=== PATIENT | male | born 1960 | race Caucasian/White ===

== ENCOUNTER → 2020-07-11 09:45 | Outpatient (BNVA) | payer MEDICAID, SELFPAY | PROVIDERS: PCP Internal Medicine; Referring Provider Internal Medicine; Visit Provider Nurse Practitioner | DX: K52.9 Noninfective gastroenteritis and colitis, unspecified (principal); K62.89 Other specified diseases of anus and rectum; Z80.0 Family history of malignant neoplasm of digestive organs | CPT/HCPCS: 99214 ==

== ENCOUNTER → 2020-07-25 11:09 | Outpatient (BNVA) | payer MEDICAID, SELFPAY | PROVIDERS: PCP Internal Medicine; Visit Provider Nurse Practitioner | DX: K52.9 Noninfective gastroenteritis and colitis, unspecified (principal); K21.9 Gastro-esophageal reflux disease without esophagitis; K62.89 Other specified diseases of anus and rectum; I69.392 Facial weakness following cerebral infarction; Z80.0 Family history of malignant neoplasm of digestive organs | CPT/HCPCS: 99214 ==

== ENCOUNTER 2020-08-09 09:19 | Outpatient (REF) | payer MEDICAID, SELFPAY ==
[2020-08-09 10:13] LABS: MANUAL DIFF FLAG NO
[2020-08-09 10:25] LABS: Basophils Absolute Auto 0.1 X10*3/uL (0.0-0.2); Basophils Percent Auto 0.7 % (0-2); Eosinophils Absolute Auto 0.3 X10*3/uL (0.0-0.4); Eosinophils Percent Auto 3.9 % (0-4); Hematocrit 44.8 % (42-52); Hemoglobin 15.7 g/dl (14.0-18.0); Imm Gran Abs Auto 0.01 X10*3/uL (0.00-0.03); Imm Gran Pct Auto 0.1 % (0.0-0.4); Lymphocytes Absolute Auto 3.1 X10*3/uL (1.2-4.9); Mean Corpuscular Hemoglobin 30.3 pg (27.0-33.0); Mean Corpuscular Volume 86.3 fL (80-98); Mean Platelet Volume 11.9 fL (9.4-12.4); Monocytes Absolute Auto 0.7 X10*3/uL (0.1-1.2); Monocytes Percent Auto 9.9 % (2-11); Neutrophils Absolute Auto 3.3 X10*3/uL (2.0-8.3); Neutrophils Percent Auto 44.4 % (45-73); Platelet Count 189 X10*3/uL (160-400); Red Blood Count 5.19 X10*6/uL (4.60-5.80); Red Cell Distribution Width 12.8 % (11.0-16.0); White Blood Count 7.4 X10*3/uL (4.8-10.8)
[2020-08-09 10:57] LABS: Alanine Aminotransferase 30 U/L (0-40); Albumin Level 4.3 g/dL (3.5-5.0); Alkaline Phosphatase 65 U/L (39-117); Anion Gap 10 (12-20); Aspartate Amino Transferase 32 U/L (5-37); Bilirubin Total 0.8 mg/dL (0.0-1.0); Blood Urea Nitrogen 14 mg/dL (9-16); Calcium 8.9 mg/dL (8.4-10.2); Carbon Dioxide 26 mmol/L (22-29); Chloride 105 mmol/L (96-108); Estimated Glomerular Filt Rate > 60; Glucose Random 98 mg/dL (60-115); Potassium 4.4 mmol/l (3.3-5.1); Sodium 137 mmol/L (135-145); Total Protein 7.1 g/dL (6.5-8.0)
== END 2020-08-09 09:20 | disposition home or self-care (01) ==
LOC: HO.LAB 09:19
PROVIDERS: PCP Internal Medicine; Visit Provider Nurse Practitioner
DX: Z12.11 Encounter for screening for malignant neoplasm of colon (principal)
CPT/HCPCS: 36415; 80053; 85025

== ENCOUNTER 2020-08-16 07:22 | Day surgery (SDC) | payer MEDICAID, SELFPAY ==
[2020-08-09 12:14] VITALS: BMI 30.2
[2020-08-16 08:14] VITALS: BP 110/71; PULSE 58; RESP 16; TEMP 36.2; O2SAT 98
[2020-08-16] MEDS: Lactated Ringers 1,000 ML 50 ML IVCONT (08:20)
--- NOTE | 2020-08-16 08:20 | P.CONAN_ITS ---
[facility] Past Medical History Medical History CVA (cerebral vascular accident) Elevated cholesterol GERD (gastroesophageal reflux disease) HTN (hypertension) Sleep apnea Czech speaking patient Family History Family History (Updated 07/25/20 @ 11:21 by ROSETTA Walls) Father Myocardial infarction Colon cancer HTN (hypertension) Mother Coronary artery disease HTN (hypertension) Diabetes mellitus Hyperlipidemia Paternal Uncle Liver cancer Colon cancer Paternal Grandmother Myocardial infarction Heart disease Family/Other Diabetes mellitus HTN (hypertension) Son Asthma Bipolar 1 disorder ADHD Surgical History Surgical History Hx of colonoscopy No pertinent past surgical history Social History Social History (Updated 07/25/20 @ 11:22 by ROSETTA Walls) Alcohol intake: current Alcohol intake frequency: does not drink Smoking Status: Never smoker Use of substances other than those prescribed or required for medical reasons: No Advance Directives Information Provided: No Recently lost weight without trying: No Meds Allergies Allergy/AdvReac Type Severity Reaction Status Date / Time No Known Allergies Allergy Verified 08/09/20 12:24 Home Medications Medication Instructions Recorded Confirmed Type amlodipine 5 mg tablet 5 mg PO DAILY 07/11/20 08/16/20 History aspirin 81 mg tablet,delayed 81 mg PO DAILY 07/11/20 08/16/20 History release gabapentin 100 mg capsule 100 mg PO DAILY 07/11/20 08/09/20 History lisinopril 2.5 mg tablet 2.5 mg PO DAILY 07/11/20 08/09/20 History omeprazole 20 mg capsule,delayed 20 mg PO DAILY 07/11/20 08/09/20 History release simvastatin 40 mg tablet 40 mg PO DAILY 07/11/20 08/09/20 History Exam Exam Date and Time: August 16, 2020819 Height,Weight and Vital Signs: Height 5 ft 7.5 in Weight 88.904 kg Last Vital Signs Temp 97.2 F 08/16/20 08:14 Pulse 58 08/16/20 08:14 Resp 16 08/16/20 08:14 BP 110/71 08/16/20 08:14 Pulse Ox 98 08/16/20 08:14 Airway Mallampati Class: II TM Dist: >3cm Neck ROM: Full Partial: Upper and Lower Heart: RRR Lungs: CTA BL Assessment and Plan Assessment Anesthesia Assessment: Anesthesia Plan Discussed and Chart Reviewed Final Anesthetic Review NPO: Yes (Sip water with meds) ASA Class: III Final Preanesthetic Review: Meds/Allgs Chart Reviewed and Consent Obtained/Reviewed Patient Risk: Intermediate Procedure Risk: Intermediate Anesthetic Plan Anesthetic Plan: MAC: Disposition: Standard PACU
--- NOTE | 2020-08-16 08:20 | MHC.SHP ---
Pre-Procedural Eval Section B Chief Complaint: SCREENING Present Medications: see Short Stay Collaborative assessment Medical History: Significant History (cva, HTN, HLP) History of Previous Operations: No relevant previous surgery Allergies: Allergies Allergy/AdvReac Type Severity Reaction Status Date / Time No Known Allergies Allergy Verified 08/09/20 12:24 Review of Systems Sugical H&P ROS: Negative: Constitution, Cardiovascular, Respiratory, Neurological, Psychiatric, Hem-Onc, Allergic/Immunologic, Gastrointestinal, Genitourinary, Musculoskeletal, Integumentary, Endocrine and Eyes/Ears/Nose/Throat Exam Surgical H&P Exam: Normal: HEENT, Normal: Heart, Normal: Lungs, Normal: Extremities, Normal: Abdomen, Normal: Skin and Normal: Neurological Plan Diagnosis/Plan: Unchanged Patient has been examined and remains a candidate for the planned procedure
--- NOTE | 2020-08-16 08:21 | PM.OP ---
Brief Operative Note Date of Service: 08/16/20 Pre-op diagnosis: colon screen Post-op diagnosis: same Procedure: see op note Surgeon: Chiquita Kapadia MD Anesthesia: MAC Estimated blood loss (mL): 0 Condition: stable Disposition: PACU
--- NOTE | 2020-08-16 08:21 | W.PM.OPN ---
Operative Note Operative Note Date of Service: 08/16/20 Narrative: Operative Information Procedure Description: Colonoscopy COLONOSCOPY Instrument: Olympus variable stiffness pediatric scope 190L Colonoscopy Monitoring: Vital signs and clinical assessment, continuous EKG monitoring, Pulse oximetry, Carbon Dioxide monitoring and blood pressure monitoring were done throughout the procedure. Colon withdrawal time was 10 minutes. Procedure: The patient was placed in the left lateral decubitis position and pre-procedure medications were administered. After a digital rectal examination of the ano-rectum, the video colonoscope was inserted into the rectum and advanced through the colon to the cecum/TI. The colonoscope was slowly withdrawn in a retrograde panoramic fashion and the colon mucosa was carefully examined including a retroflexed view of the rectum. Findings and interventions are described below. Procedure Difficulty:easy Findings: Terminal Ileum-normal Cecum:normal Ascending Colon: 4-5 mm sessile polyp removed with forceps Transverse Colon -normal Descending Colon:normal Sigmoid Colon: several wide mouthed tics seen, at rectosigmoid junction 10-12 mm semi pedunculated polyp removed with cold snare Rectum: Retroflexion with small to moderate sized internal hemorrhoids, grade I Anorectum - normal Colon preparation: [place] Bowel Preparation Scale Right colon; 3 Transverse colon: 3 Left colon; 3 (0 = Unprepared colon segment with mucosa not seen due to solid stool that cannot be cleared. 1 = Portion of mucosa of the colon segment seen, but other areas of the colon segment not well seen due to staining, residual stool and/or opaque liquid. 2 = Minor amount of residual staining, small fragments of stool and/or opaque liquid, but mucosa of colon segment seen well. 3 = Entire mucosa of colon segment seen well with no residual staining, small fragments of stool or opaque liquid) Impression and Post Procedure Diagnosis: internal hemorrhoids diverticulosis polyps Plan: High fiber diet leaflet Avoid straining at stool, epsom salts and sitz bath, anusol supps or cream Repeat Colonoscopy in 3-5 years pending pathology or earlier if clinically indicated Above findings were reviewed with the patient and relevant handouts were provided if indicated.
[2020-08-16 08:43] VITALS: BP 92/57; PULSE 63; RESP 16; TEMP 36.5; O2SAT 97
[2020-08-16 08:58] VITALS: BP 99/70; PULSE 62; RESP 18; O2SAT 99
--- NOTE | 2020-08-16 09:19 | HO.POSTANES ---
Post Anesthesia Evaluation Post Anesthesia Evaluation Vital Signs: Vital Signs Temp Pulse Resp BP Pulse Ox 08/16/20 08:58 97.7 F 62 18 99/70 99 08/16/20 08:43 97.7 F 63 16 92/57 L 97 08/16/20 08:14 97.2 F 58 16 110/71 98 Anesthesia: Monitored Mental Status: Awake Pain Control: Satisfactory Nausea/Vomiting: None Hydration: Adequate Anesthesia-Related Issues: No Anes. Related Issues
== END 2020-08-16 09:35 | disposition home or self-care (01) ==
PROVIDERS: PCP Internal Medicine; Visit Provider Internal Medicine Gastroenterology
PROC: 0DJD8ZZ Inspection of Lower Intestinal Tract, Via Natural or Artificial Opening Endoscopic (ICD-10-PCS; CPT 45378; principal; 2020-08-16 08:30)
DX: Z12.11 Encounter for screening for malignant neoplasm of colon (principal); D12.7 Benign neoplasm of rectosigmoid junction; K63.5 Polyp of colon; K57.30 Diverticulosis of large intestine without perforation or abscess without bleeding; K64.0 First degree hemorrhoids; K21.9 Gastro-esophageal reflux disease without esophagitis; I10 Essential (primary) hypertension; G47.33 Obstructive sleep apnea (adult) (pediatric); I69.351 Hemiplegia and hemiparesis following cerebral infarction affecting right dominant side; Z99.89 Dependence on other enabling machines and devices; Z79.82 Long term (current) use of aspirin; Z79.899 Other long term (current) drug therapy
CPT/HCPCS: 45385; 45380; 88305

== ENCOUNTER → 2020-09-07 15:50 | Outpatient (BNVA) | payer MEDICAID, SELFPAY | PROVIDERS: PCP Internal Medicine; Referring Provider Internal Medicine; Visit Provider Nurse Practitioner | DX: Z76.89 Persons encountering health services in other specified circumstances (principal) ==

== ENCOUNTER 2020-12-19 12:58 | Outpatient (REF) | payer MEDICAID, SELFPAY ==
--- NOTE | ~2020-12-19 | XR_ITS ---
EXAMINATION: XR CHEST CLINICAL INFORMATION: Cough and chest pain COMPARISON: Previous chest x-ray May 2020 TECHNIQUE: 2 views of the chest were obtained. FINDINGS: No significant abnormality is noted involving the heart, lungs, mediastinum, bony thorax or soft tissues. XR/XR chest 2V IMPRESSION: Unremarkable examination.
== END 2020-12-19 12:59 | disposition home or self-care (01) ==
LOC: HO.XRAY 12:58
PROVIDERS: PCP Internal Medicine; Visit Provider Internal Medicine
DX: R07.89 Other chest pain (principal); R05 Cough
CPT/HCPCS: 71046

== ENCOUNTER 2023-09-10 11:07 | Outpatient (REF) | payer MEDICARE, MEDICAID, SELFPAY ==
[2023-09-10 14:25] LABS: Hematocrit 46.8 % (42.0-52.0); Hemoglobin 16.2 g/dl (14.0-18.0); Mean Corpuscular HGB Conc 34.6 g/dl (31.0-36.0); Mean Corpuscular Hemoglobin 29.1 pg (27.0-33.0); Mean Corpuscular Volume 84.2 fL (80.0-98.0); PLT CLUMP 1; Red Blood Count 5.56 X10*6/uL (4.60-5.80); Red Cell Distribution Width 13.5 % (11.0-16.0)
[2023-09-10 14:43] LABS: Platelet Count 155 X10*3/uL (160-400); White Blood Count 8.6 X10*3/uL (4.8-10.8)
[2023-09-10 14:57] LABS: TSH reflex Free T4 0.99 uIU/mL (0.32-4.0); Vitamin D 25-OH Total 52.9 ng/mL (>30)
== END 2023-09-10 11:08 | disposition home or self-care (01) ==
LOC: HO.CHCLDS 11:07
PROVIDERS: Visit Provider Internal Medicine
DX: R53.83 Other fatigue (principal)
CPT/HCPCS: 36415; 82306; 84443; 85027

== ENCOUNTER 2023-09-10 11:31 | Outpatient (REF) | payer MEDICARE, MEDICAID, SELFPAY ==
--- NOTE | ~2023-09-10 | XR_ITS ---
EXAMINATION: XR CHEST CLINICAL INFORMATION: Shortness of breath COMPARISON: Chest 09/21/2021, 06/08/2020 TECHNIQUE: 2 views of the chest were obtained. 11:55 AM FINDINGS: No significant abnormality is noted involving the heart, lungs, mediastinum, bony thorax or soft tissues. XR/XR chest 2V IMPRESSION: No acute cardiopulmonary disease.
== END 2023-09-10 11:32 | disposition home or self-care (01) ==
LOC: HO.XRAY 11:31
PROVIDERS: Visit Provider Internal Medicine
DX: R06.02 Shortness of breath (principal)
CPT/HCPCS: 71046

== ENCOUNTER 2024-01-07 07:31 | Day surgery (SDC) | payer MEDICARE, MEDICAID, SELFPAY ==
--- NOTE | 2024-01-06 09:35 | HO.ANESPROP2 ---
Documented by User: Janeth Coleman NP 01/06/24 09:35 HPI - Anesthesia Eval Consult details Narrative: 63yo M for Colonoscopy PMFSH Active Problems Active Problems: All Active Problems Tubular adenoma of colon (Acute) 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) (Acute) Hypertension (Acute) High cholesterol (Acute) GERD (gastroesophageal reflux disease) (Acute) RAMÍREZ (obstructive sleep apnea) (Acute) Rectal pain (Acute) Family history of colon cancer (Acute) Colitis (Acute) Past Medical History Medical History (Updated 01/07/24 @ 07:51 by Salina Yu RN) Elevated cholesterol GERD (gastroesophageal reflux disease) HTN (hypertension) [place] speaking patient Sleep apnea CVA (cerebral vascular accident) Family History Family History (Updated 07/25/20 @ 11:21 by ROSETTA Walls) Father Myocardial infarction Colon cancer HTN (hypertension) Mother Coronary artery disease HTN (hypertension) Diabetes mellitus Hyperlipidemia Paternal Uncle Liver cancer Colon cancer Paternal Grandmother Myocardial infarction Heart disease Family/Other Diabetes mellitus HTN (hypertension) Son Asthma Bipolar 1 disorder ADHD Surgical History Surgical History (Updated 01/05/24 @ 11:47 by Bibiana Martinez RN) Hx of colonoscopy Social History Social History (Updated 09/07/20 @ 16:09 by ROSETTA Walls) Alcohol intake: current Alcohol intake frequency: does not drink Patient Tobacco Use Status: Never used Tobacco Use of substances other than those prescribed or required for medical reasons: No Are you DNR?: No Advance Directives: No Advance Directives Information Provided: Yes Meds Allergies Allergy/AdvReac Type Severity Reaction Status Date / Time No Known Allergies Allergy Verified 08/09/20 12:24 Home Medications ?Medication ?Instructions ?Recorded ?Confirmed ?Last Taken ?Type amlodipine 5 mg tablet 5 mg PO DAILY 07/11/20 08/16/20 08/16/20 06:00 History aspirin 81 mg tablet,delayed 81 mg PO DAILY 07/11/20 08/16/20 08/15/20 History release gabapentin 100 mg capsule 100 mg PO DAILY 07/11/20 08/09/20 Unknown History lisinopril 2.5 mg tablet 2.5 mg PO DAILY 07/11/20 08/09/20 Unknown History omeprazole 20 mg capsule,delayed 20 mg PO DAILY 07/11/20 08/09/20 Unknown History release simvastatin 40 mg tablet 40 mg PO DAILY 07/11/20 08/09/20 Unknown History Exam Height,Weight and Vital Signs: Height 5 ft 7.5 in Assessment and Plan Assessment Anesthesia Assessment: Chart Reviewed Documented by User: Roshan Cali MD 01/07/24 09:04 [facility] Past Medical History Medical History (Updated 01/07/24 @ 07:51 by Salina Yu RN) Elevated cholesterol GERD (gastroesophageal reflux disease) HTN (hypertension) [place] speaking patient Sleep apnea CVA (cerebral vascular accident) Family History Family History (Updated 07/25/20 @ 11:21 by ROSETTA Walls) Father Myocardial infarction Colon cancer HTN (hypertension) Mother Coronary artery disease HTN (hypertension) Diabetes mellitus Hyperlipidemia Paternal Uncle Liver cancer Colon cancer Paternal Grandmother Myocardial infarction Heart disease Family/Other Diabetes mellitus HTN (hypertension) Son Asthma Bipolar 1 disorder ADHD Family history of problems with anesthesia: No Surgical History Surgical History (Updated 01/05/24 @ 11:47 by Bibiana Martinez RN) Hx of colonoscopy History of Problems with Anesthesia: No Social History Social History (Updated 09/07/20 @ 16:09 by ROSETTA Walls) Alcohol intake: current Alcohol intake frequency: does not drink Patient Tobacco Use Status: Never used Tobacco Use of substances other than those prescribed or required for medical reasons: No Are you DNR?: No Advance Directives: No Advance Directives Information Provided: Yes Meds Allergies Allergy/AdvReac Type Severity Reaction Status Date / Time No Known Allergies Allergy Verified 08/09/20 12:24 Home Medications ?Medication ?Instructions ?Recorded ?Confirmed ?Last Taken ?Type amlodipine 5 mg tablet 5 mg PO DAILY 07/11/20 08/16/20 08/16/20 06:00 History aspirin 81 mg tablet,delayed 81 mg PO DAILY 07/11/20 08/16/20 08/15/20 History release gabapentin 100 mg capsule 100 mg PO DAILY 07/11/20 08/09/20 Unknown History lisinopril 2.5 mg tablet 2.5 mg PO DAILY 07/11/20 08/09/20 Unknown History omeprazole 20 mg capsule,delayed 20 mg PO DAILY 07/11/20 08/09/20 Unknown History release simvastatin 40 mg tablet 40 mg PO DAILY 07/11/20 08/09/20 Unknown History Exam Airway Mallampati Class: II TM Dist: <=3cm Neck ROM: Full Loose/Missing/Broken Teeth: No Heart: rrr Lungs: cta Assessment and Plan Assessment Anesthesia Assessment: Anesthesia Plan Discussed Final Anesthetic Review Family History of Problems with Anesthesia: No History of Problems with Anesthesia: No NPO: Yes ASA Class: III Final Preanesthetic Review: No Changes in Pt Med Stat, Meds/Allgs Chart Reviewed, Consent Obtained/Reviewed and Anes Risks/Benef Reviewed Patient Risk: Intermediate Procedure Risk: Intermediate Anesthetic Plan Anesthetic Plan: MAC: Disposition: Standard PACU
[2024-01-07 07:45] VITALS: BMI 33.5
[2024-01-07 07:53] VITALS: BP 117/80; PULSE 67; RESP 16; TEMP 36.5; O2SAT 97
[2024-01-07] MEDS: Lactated Ringers 1,000 ML 100 ML IVCONT (08:03)
--- NOTE | 2024-01-07 08:38 | MHC.SHP ---
Pre-Procedural Eval Section A - 24 Hr Update-Section A only Date of Service: 01/07/24 Section B - Complete if H&P > 30 days Chief Complaint: Personal history of polyps, family history of colo Details of Present Illness: PMH: CVA (cerebral vascular accident) Elevated cholesterol GERD (gastroesophageal reflux disease) HTN (hypertension) Sleep apnea Slovenian speaking patient Surgical History Hx of colonoscopy No pertinent past surgical history Present Medications: see Short Stay Collaborative assessment Allergies: Allergies Allergy/AdvReac Type Severity Reaction Status Date / Time No Known Allergies Allergy Verified 08/09/20 12:24 Review of Systems Review of Systems Comment: 10 point ROS negative Exam Exam Comment: Gen appear: No acute distress HEENT: no icterus Chest: No overt resp distress Abd: soft, nontender, nondistended Psych: Stable affect, answering questions appropriately Neuro: A/Ox3 noted to move all extremities spontaneously Ext: no peripheral edema Plan Diagnosis/Plan: Unchanged I have reviewed the history and physical and performed a pertinent physical examination on my patient. No changes have occurred unless specified. Time Spent With Patient Time: Total time managing care of this patient today ____ minutes.
[2024-01-07 10:02] VITALS: BP 118/74; PULSE 68; RESP 16; TEMP 36.1; O2SAT 97
[2024-01-07 10:17] VITALS: BP 102/70; PULSE 60; RESP 16; O2SAT 97
--- NOTE | 2024-01-07 10:20 | P.OP_ITS ---
Operative Note Operative Note Date of Service: 01/07/24 Narrative: Procedure: Colonoscopy Indication: Personal history of polyps and Family history of colon cancer Endoscopist: Ina Brown MD Anesthesia Provider: Chey Serra CRNA Anesthesia type: MAC Instrument: Olympus PCF-H190L Consent: Indication, risks vs benefits, and alternatives were discussed with the patient who gave written informed consent to proceed. An supervisor char house was utilized to assist with the consent. EKG, pulse, pulse oximetry and blood pressure were monitored throughout the procedure. Please see anesthesia flowsheet. Procedure: The patient was brought to the procedure room and placed in the left lateral decubitus position. IV medications were administered by the anesthesia provider in attendance. A digital rectal exam was performed which was normal. A distal attachment cap was affixed to the tip of the colonoscope was then inserted through the anus and advanced through the colon to the cecum at 70 cm,and terminal ileum. Ileocecal valve and appendiceal orifice were identified. Mucosa was carefully examined under high definition white light as the instrument was slowly withdrawn in a retrograde panoramic fashion. Retroflexion was performed in rectum. The procedure was not difficult. There were no immediate obvious complications. The quality of the prep was BBPS: 3+2+2 = adequate Withdrawal time 16 minutes. Limitations: No limitations. Findings: Mucosa: Normal to cecum and terminal ileum. Protruding lesions: * 2 sessile polyps of size 3-4 mm in ascending colon. Cold snare polypectomy was performed. The polyps were completely removed and retrieved. * 1 sessile polyp of size 2 mm in transverse colon. Cold snare polypectomy was performed. The polyp was completely removed and retrieved. * 2 sessile polyps of size 4-6 mm in descending colon. Cold snare polypectomy was performed. The polyps were completely removed and retrieved. * 2 sessile polyps of size 3-4 mm in rectum. Cold snare polypectomy was performed. The polyps were completely removed and retrieved. * Medium internal hemorrhoids without stigmata of recent bleeding. Impression: 1. Normal colon and terminal ileum mucosa 2. Total of 7 polyps removed 3. Internal hemorrhoids Recommendations: - Follow path results. - Repeat colonoscopy in 3 years if 3 or more polyps are adenomas
[2024-01-07 10:32] VITALS: BP 116/53; PULSE 82; RESP 16; TEMP 36.3; O2SAT 97
== END 2024-01-07 11:06 | disposition home or self-care (01) ==
PROVIDERS: PCP Internal Medicine; Visit Provider Internal Medicine
PROC: 0DJD8ZZ Inspection of Lower Intestinal Tract, Via Natural or Artificial Opening Endoscopic (ICD-10-PCS; CPT 45378; principal; 2024-01-07 09:40)
DX: Z12.11 Encounter for screening for malignant neoplasm of colon (principal); Z86.010 Personal history of colon polyps; Z80.0 Family history of malignant neoplasm of digestive organs; D12.2 Benign neoplasm of ascending colon; D12.4 Benign neoplasm of descending colon; D12.8 Benign neoplasm of rectum; K57.30 Diverticulosis of large intestine without perforation or abscess without bleeding; K64.8 Other hemorrhoids; Z86.73 Personal history of transient ischemic attack (TIA), and cerebral infarction without residual deficits; E78.00 Pure hypercholesterolemia, unspecified; K21.9 Gastro-esophageal reflux disease without esophagitis; I10 Essential (primary) hypertension; G47.33 Obstructive sleep apnea (adult) (pediatric); Z79.82 Long term (current) use of aspirin; Z79.899 Other long term (current) drug therapy
CPT/HCPCS: 45385; 88305

== ENCOUNTER → 2024-01-07 07:31 | Outpatient (BNV) | payer MEDICARE, MEDICAID, SELFPAY | PROVIDERS: PCP Internal Medicine; Visit Provider Internal Medicine | DX: Z12.11 Encounter for screening for malignant neoplasm of colon (principal); K63.5 Polyp of colon; K64.8 Other hemorrhoids; Z86.010 Personal history of colon polyps | CPT/HCPCS: 45385 ==

== ENCOUNTER 2024-03-01 09:30 | Outpatient (REF) | payer MEDICARE, MEDICAID, SELFPAY ==
--- NOTE | ~2024-03-01 | XR_ITS ---
EXAMINATION: XR CHEST CLINICAL INFORMATION: Shortness of breath. Cough. COMPARISON: Chest radiograph dated 09/10/2023. TECHNIQUE: 2 views of the chest were obtained. FINDINGS: The lungs are clear. The cardiomediastinal silhouette is normal in size. There is no pleural effusion or pneumothorax. No acute osseous abnormality. XR/XR chest 2V IMPRESSION: No acute cardiopulmonary findings.
== END 2024-03-01 09:31 | disposition home or self-care (01) ==
LOC: HO.HHCX 09:30
PROVIDERS: Visit Provider Internal Medicine
DX: R09.89 Other specified symptoms and signs involving the circulatory and respiratory systems (principal); R06.02 Shortness of breath; R05.1 Acute cough
CPT/HCPCS: 36415; 71046; 80053; 85025

== ENCOUNTER 2024-03-01 09:58 | Outpatient (REF) | payer MEDICARE, MEDICAID, SELFPAY ==
[2024-03-01 11:59] LABS: MANUAL DIFF FLAG NO
[2024-03-01 12:10] LABS: Basophils Percent Auto 0.4 % (0-2); Hemoglobin 17.4 g/dl (14.0-18.0); Imm Gran Abs Auto 0.02 X10*3/uL (0.00-0.03); Imm Gran Pct Auto 0.3 % (0.0-0.4); Lymphocytes Absolute Auto 0.9 X10*3/uL (1.2-4.9); Lymphocytes Percent Auto 12.6 % (20-40); Mean Corpuscular HGB Conc 35.5 g/dl (31.0-36.0); Mean Corpuscular Hemoglobin 29.5 pg (27.0-33.0); Mean Corpuscular Volume 83.1 fL (80.0-98.0); Monocytes Absolute Auto 0.5 X10*3/uL (0.1-1.2); Neutrophils Percent Auto 79.7 % (45-73); Red Cell Distribution Width 14.2 % (11.0-16.0); White Blood Count 7.5 X10*3/uL (4.8-10.8)
[2024-03-01 12:25] LABS: Alanine Aminotransferase 142 U/L (0-40); Alkaline Phosphatase 150 U/L (39-117); Anion Gap 14 (12-20); Aspartate Amino Transferase 112 U/L (5-37); Bilirubin Total 2.4 mg/dL (0.0-1.0); Blood Urea Nitrogen 17 mg/dL (9-16); Calcium 9.2 mg/dL (8.4-10.2); Carbon Dioxide 25 mmol/L (22-29); Chloride 98 mmol/L (96-108); Estimated Glomerular Filt Rate 59; Glucose Random 132 mg/dL (60-115); Potassium 4.3 mmol/L (3.3-5.1); Sodium 133 mmol/L (135-145); Total Protein 7.4 g/dL (6.5-8.0)
[2024-03-01 13:04] LABS: Mean Platelet Volume 12.9 fL (9.4-12.4); Platelet Count 111 X10*3/uL (160-400)
== END 2024-03-01 09:59 | disposition home or self-care (01) ==
LOC: HO.HHCL 09:58
PROVIDERS: Visit Provider Internal Medicine
DX: Z13.89 Encounter for screening for other disorder (principal)
CPT/HCPCS: 36415; 80053; 85025

== ENCOUNTER 2024-03-03 08:41 | Outpatient (REF) | payer MEDICARE, MEDICAID, SELFPAY ==
[2024-03-04 04:18] LABS: HBc Num1 0.12 S/CO (0.00-0.79); HBsAGNum1 0.23 S/CO (0.00-0.99); Hepatitis A Antibody IgM 0.15 Index (0-0.79); Hepatitis B Core Antibody Nonreactive (Nonreactive); Hepatitis B Surface Antigen Negative (Negative); ~HepC Num1 0.22 S/CO (0.00-0.79); ~Hepatitis A Antibody IgM Nonreactive (Nonreactive); ~Hepatitis B Surface Antibody NONREACTIVE (Nonreactive); ~Hepatitis C Antibody Nonreactive (Nonreactive)
== END 2024-03-03 08:42 | disposition home or self-care (01) ==
LOC: HO.CHCLDS 08:41
PROVIDERS: Visit Provider Internal Medicine
DX: R74.01 Elevation of levels of liver transaminase levels (principal); R74.8 Abnormal levels of other serum enzymes
CPT/HCPCS: 36415; 86704; 86706; 86709; 86803; 87340

== ENCOUNTER 2024-03-10 07:45 | Outpatient (REF) | payer MEDICARE, MEDICAID, SELFPAY ==
--- NOTE | ~2024-03-10 | US_ITS ---
EXAMINATION: US ABDOMEN COMPLETE CLINICAL INFORMATION: Elevated alkaline phosphatase. COMPARISON: None available. TECHNIQUE: Real-time imaging of the abdominal viscera. Limited visualization due to bowel gas FINDINGS: PANCREAS: Poorly visualized. ABDOMINAL AORTA: Limited visualization. INFERIOR VENA CAVA: Visualized portions are normal. LIVER: Right lower hepatic 0.5 cm echogenic focus is characteristic of a calcification, possibly a calcified granuloma. Right hepatic lobe borderline enlarged, 15.6 cm. Increased hepatic parenchymal heterogeneity and echogenicity could be associated with hepatocellular disease/hepatic steatosis and substantially limits visualization. Correlation with liver function tests and clinical exam recommended to determine further management. GALLBLADDER: No gallstones. No gallbladder wall thickening. COMMON BILE DUCT: Normal in caliber measuring 0.5 cm in diameter. RIGHT KIDNEY: No hydronephrosis. No renal calculi. Limited visualization. The kidney measures 11.7 cm in maximum dimension. LEFT KIDNEY: No hydronephrosis. No renal calculi. Limited visualization. The kidney measures 12.5 cm in maximum dimension. SPLEEN: Normal. The spleen measures 12.0 cm in maximum dimension. FREE FLUID: None. US/US abdomen complete IMPRESSION: 1. Borderline hepatosplenomegaly as detailed above. Increased hepatic parenchymal heterogeneity and echogenicity could be associated with hepatocellular disease/hepatic steatosis and substantially limits visualization. Correlation with liver function tests and clinical exam recommended to determine further management. 2. Right lower hepatic 0.5 cm echogenic focus is characteristic of a calcification, possibly a calcified granuloma.
== END 2024-03-10 07:46 | disposition home or self-care (01) ==
LOC: HO.US 07:45
PROVIDERS: PCP Internal Medicine; Visit Provider Internal Medicine
DX: R74.01 Elevation of levels of liver transaminase levels (principal); R74.8 Abnormal levels of other serum enzymes
CPT/HCPCS: 76700

== ENCOUNTER 2024-03-12 08:33 | Outpatient (REF) | payer MEDICARE, MEDICAID, SELFPAY ==
[2024-03-12 15:00] LABS: Anion Gap 13 (12-20); Blood Urea Nitrogen 14 mg/dL (9-16); Calcium 9.4 mg/dL (8.4-10.2); Carbon Dioxide 25 mmol/L (22-29); Chloride 104 mmol/L (96-108); Estimated Glomerular Filt Rate > 60; Glucose Random 88 mg/dL (60-115); Potassium 4.7 mmol/L (3.3-5.1); Sodium 137 mmol/L (135-145)
[2024-03-12 15:05] LABS: Estimated Average Glucose 111 mg/dL; Hemoglobin A1C 150.7987 umol/L; Hemoglobin A1c % 5.5 % (<6.0)
[2024-03-15 04:02] LABS: HBS Num1 1.03 mIU/mL (0-7.99); HBc Num1 0.11 S/CO (0.00-0.79); HBsAGNum1 0.36 S/CO (0.00-0.99); Hepatitis A Antibody IgM 0.16 Index (0-0.79); Hepatitis B Core Antibody Nonreactive (Nonreactive); Hepatitis B Surface Antigen Negative (Negative); ~HepC Num1 0.27 S/CO (0.00-0.79); ~Hepatitis A Antibody IgM Nonreactive (Nonreactive); ~Hepatitis B Surface Antibody NONREACTIVE (Nonreactive); ~Hepatitis C Antibody Nonreactive (Nonreactive)
== END 2024-03-12 08:34 | disposition home or self-care (01) ==
LOC: HO.CHCLDS 08:33
PROVIDERS: Visit Provider Internal Medicine
DX: R74.01 Elevation of levels of liver transaminase levels (principal); R73.9 Hyperglycemia, unspecified
CPT/HCPCS: 36415; 80048; 83036; 86704; 86706; 86709; 86803; 87340

== ENCOUNTER 2024-03-18 09:57 | Outpatient (REF) | payer MEDICARE, MEDICAID, SELFPAY ==
[2024-03-18 12:31] LABS: Alanine Aminotransferase 20 U/L (0-40); Albumin Level 3.7 g/dL (3.5-5.0); Alkaline Phosphatase 94 U/L (39-117); Aspartate Amino Transferase 31 U/L (5-37); Bilirubin Direct 0.3 mg/dL (0.0-0.5); Monotest Negative (Negative)
== END 2024-03-18 09:58 | disposition home or self-care (01) ==
LOC: HO.HHCL 09:57
PROVIDERS: Visit Provider Registered Nurse
DX: R74.8 Abnormal levels of other serum enzymes (principal)
CPT/HCPCS: 36415; 80076; 86308

== ENCOUNTER 2024-04-06 15:00 | Outpatient (REF) | payer MEDICARE, MEDICAID, SELFPAY ==
[2024-04-06 18:08] LABS: Alanine Aminotransferase 20 U/L (0-40); Albumin Level 3.6 g/dL (3.5-5.0); Alkaline Phosphatase 91 U/L (39-117); Anion Gap 10 (12-20); Aspartate Amino Transferase 28 U/L (5-37); Bilirubin Total 0.6 mg/dL (0.0-1.0); Blood Urea Nitrogen 19 mg/dL (9-16); Carbon Dioxide 26 mmol/L (22-29); Chloride 105 mmol/L (96-108); Estimated Glomerular Filt Rate > 60; Glucose Random 113 mg/dL (60-115); Sodium 137 mmol/L (135-145); Total Protein 7.7 g/dL (6.5-8.0)
== END 2024-04-06 15:01 | disposition home or self-care (01) ==
LOC: HO.CHCLDS 15:00
PROVIDERS: Visit Provider Internal Medicine
DX: R74.01 Elevation of levels of liver transaminase levels (principal)
CPT/HCPCS: 36415; 80053

== ENCOUNTER 2024-05-03 15:34 | Outpatient (REF) | payer MEDICARE, MEDICAID, SELFPAY ==
[2024-05-03 17:39] LABS: MANUAL DIFF FLAG NO
[2024-05-03 17:55] LABS: Basophils Absolute Auto 0.1 X10*3/uL (0.0-0.2); Basophils Percent Auto 0.6 % (0-2); Eosinophils Absolute Auto 0.3 X10*3/uL (0.0-0.4); Eosinophils Percent Auto 2.8 % (0-4); Hematocrit 43.7 % (42.0-52.0); Hemoglobin 14.6 g/dl (14.0-18.0); Imm Gran Abs Auto 0.05 X10*3/uL (0.00-0.03); Imm Gran Pct Auto 0.5 % (0.0-0.4); Lymphocytes Absolute Auto 2.6 X10*3/uL (1.2-4.9); Lymphocytes Percent Auto 26.2 % (20-40); Mean Corpuscular HGB Conc 33.4 g/dl (31.0-36.0); Mean Corpuscular Hemoglobin 28.6 pg (27.0-33.0); Mean Corpuscular Volume 85.5 fL (80.0-98.0); Mean Platelet Volume 12.6 fL (9.4-12.4); Monocytes Absolute Auto 0.6 X10*3/uL (0.1-1.2); Monocytes Percent Auto 6.1 % (2-11); Neutrophils Absolute Auto 6.2 x10*3/uL (2.0-8.3); Neutrophils Percent Auto 63.8 % (45-73); Platelet Count 113 X10*3/uL (160-400); Red Blood Count 5.11 X10*6/uL (4.60-5.80); Red Cell Distribution Width 14.7 % (11.0-16.0); White Blood Count 9.7 X10*3/uL (4.8-10.8)
[2024-05-03 18:06] LABS: Alanine Aminotransferase 21 U/L (0-40); Albumin Level 3.8 g/dL (3.5-5.0); Alkaline Phosphatase 75 U/L (39-117); Aspartate Amino Transferase 25 U/L (5-37); Bilirubin Direct 0.1 mg/dL (0.0-0.5); Bilirubin Total 0.4 mg/dL (0.0-1.0); Iron 64 mcg/dL (45-160); Magnesium 1.9 mg/dL (1.6-2.6); Percent Iron Saturation 21 % (15-50); Total Iron Binding Capacity 312 mcg/dL (228-428); Total Protein 7.5 g/dL (6.5-8.0); Unsaturated Iron Binding 248 ug/dL
[2024-05-03 18:20] LABS: TSH reflex Free T4 1.88 uIU/mL (0.32-4.0)
[2024-05-03 18:30] LABS: Folate 13.2 ng/mL (> or = 4.0); Vitamin B12 1010 pg/mL (200-900)
== END 2024-05-03 15:35 | disposition home or self-care (01) ==
LOC: HO.CHCLDS 15:34
PROVIDERS: Visit Provider Family Medicine
DX: M79.605 Pain in left leg (principal)
CPT/HCPCS: 36415; 80076; 82607; 82746; 83540; 83735; 84443; 85025

== ENCOUNTER 2025-02-17 09:21 | Outpatient (REF) | payer MEDICARE, MEDICAID, SELFPAY ==
--- NOTE | ~2025-02-17 | XR_ITS ---
EXAMINATION: XR CHEST 2 VIEWS HISTORY: Ongoing cough now for 9-days. Borderline O2 sat. COMPARISON: Comparison is made with the prior examination dated 03/01/2024. FINDINGS: PA and lateral views of the chest are submitted. The lungs are expanded and clear. There is no pleural effusion, pneumothorax, or pulmonary vascular congestion. The heart is normal in size. The bones are intact. XR/XR chest 2V IMPRESSION: No acute cardiopulmonary abnormality. Electronically signed by: Fredis Tellez MD 02/17/2025 09:50 AM EDT
--- OUTSIDE RECORDS SUMMARY | 2025-02-17 09:36 | XMS_ITS | Encounter Summary ---
Author Organization [employer] Address [address] [place] [address] Care Team Providers Care Batch Unit Treater Name Role Phone Viry Merino MD Primary Care Provider [phone] Encounter Details Date Type Department Care Team ([facility] Contact Info) Description 04/02/2023 Orders Only [facility] [address] [place] [address] Gracie Munguia LPN Social History Tobacco Use Types Packs/Day Years Used Date Smoking Tobacco: Never Passive Smoke Exposure: Never Smokeless Tobacco: Never Depression Answer Date Recorded Patient Health Questionnaire-9 Score 1 12/23/2022 Depression Answer Date Recorded Patient Health Questionnaire-2 Score 0 12/23/2022 Sex and Gender Information Value Date Recorded Sex Assigned at Male 07/29/2022 10:18 AM EDT Legal Sex Male 10:18 AM EDT Gender Identity Male 07/29/2022 10:18 AM EDT Sexual Orientation Straight 07/29/2022 10 :18 AM EDT COVID-19 Exposure Response Date Recorded In the last 10 days, have yo u been in contact with someone who was confirmed or suspected to have Coronavirus/COVID-19? No / Unsure 03/20/2023 2:50 PM EDT documented as of this encounter Plan of Treatment Upcoming Encounters Date Type Department Care Team (Late Contact Info) Description 03/01/2025 11:30 AM EDT Office Visit [facility] [address], [place] [id number] Viry Merino MD [address] [place] [address] 03/25/2025 4:00 PM EDT Office Visit [facility] [address] [place] [address] Viry Merino MD [address] [place] [address] documented as of this encounter Visit Diagnoses Not on filedocumented in this encounter Additional Health Concerns Assessment Noted Time PHQ-9 Depression Total Score: 1 12/24/19 23 10:32 AM EDT documented as of this encounter Care Teams Batch Unit Treater Relationship Specialty Start Date End Date Viry Merino MD [address] [place] [address] PCP - General Internal Medicine 09/29/18 documented as of this encounter
--- OUTSIDE RECORDS SUMMARY | 2025-02-17 09:36 | XMS_ITS | Encounter Summary ---
Author Organization [employer] Address [address] [place] [address] Care Team Providers Care Administrative Office Assistant Name Role Phone Viry Merino MD Primary Care Provider [phone] Encounter Details Date Type Department Care Team (Latest Contact Info) Description 02/17/2025 Travel Social History Tobacco Use Types Packs/Day Years Used Date Smoking Tobacco: Never Passive Smoke Exposure: Never Smokeless Tobacco: Never Depression Answer Date Recorded Patient Health Questionnaire-9 Score 0 04/06/2024 Patient Health Questionnaire-9 Score 0 04/06/2024 Last PHQ-9: Questionnaire Data Not on file 0 04/06/2024 Housing Stability Answer Date Recorded What is your housing situation today? I have manolo flores 04/06/[address] you li ve. Do you have problems with any of the following? None of the above 04/06/2024 Food Insecurity Answer Date Recorded Within the past 12 months, y ou worried that your food would run out before you got money to buy more: Never True 04/06/2024 Within the past 12 months,th e food you bought just didn't last and you didn't have enough money to get more: Never True 05/2024 Transportation Answer Date Recorded In the past 12 months, has l ack of transportation kept you from medical appts, meetings, work or from getting things needed for daily living? No 04/06/2024 Utilities Answer Date Recorded In the past 12 months, has t he electric, gas, oil or water company threatened to shut off services in your home? No 04/06/2024 Depression Answer Date Recorded Patient Health Questionnaire-2 Score 0 04/06/2024 Internet Access Answer Date Recorded Internet Access Q1 Yes 05/31/2024 Internet Access Q2 I do not want or need it 10/2023 Sex and Gender Information Value Date Recorded Sex Assigned at Male 07/29/2022 10:18 AM EDT Legal Sex Male 10:18 AM EDT Gender Identity Male 07/29/2022 10:18 AM EDT Sexual Orientation Straight 07/29/2022 10 :18 AM EDT documented as of this encounter Plan of Treatment Upcoming Encounters Date Type Department Care Team (Late st Contact Info) Description 03/01/2025 11:30 AM EDT Office Visit [facility] [address] [place] [address] Viry Merino MD [address] [place] [address] 03/25/2025 4:00 PM EDT Office Visit [facility] [address] [place] [address] Viry Merino MD [address] [place] [address] documented as of this encounter Visit Diagnoses Not on filedocumented in this encounter Additional Health Concerns Assessment Noted Time PHQ-9 Depression Total Score: 0 04/06/20 24 2:14 PM EDT documented as of this encounter Care Teams Administrative Office Assistant Relationship Specialty Start Date End Date Viry Merino MD [address] [place] [address] PCP - General Internal Medicine 09/29/18 documented as of this encounter
--- OUTSIDE RECORDS SUMMARY | 2025-02-17 09:36 | XMS_ITS | Encounter Summary ---
Author Organization [employer] Address [address] [facility] [address] [place] [address] Care Team Providers Care Proctologist Name Role Phone Viry Merino MD Primary Care Provider [phone]- [phone] Reason for Visit * Reason Comments Cough Encounter Details Date Type Department Care Team ([facility] st Contact Info) Description 02/17/2025 8:40 AM EDT Office Visit [facility] [address] [place] [address] [phone] Gen Beltre MD [address] [place] [id number] Cough in adult patient Social History Tobacco Use Types Packs/Day Years [...] AM EDT documented as of this encounter Last Filed Vital Signs Vital Sign Reading Time Taken Comments Blood Pressure 133/79 02/17/2025 8:49 AM EDT Pulse 69 02/17/2025 8:49 AM EDT Temperature 36.9 ??C (98.5 ??F) 02/17/2025 8:49 AM ED T Respiratory Rate 18 02/17/2025 8:49 AM EDT Oxygen Saturation 96% 02/17/2025 8:49 AM EDT Inhaled Oxygen Concentration - - Weight 100 kg (221 lb) 02/17/2025 8:49 AM EDT Height - - Body Mass Index 35.67 12/20/2024 3:45 PM EDT documented in this encounter Progress Notes * Gen Beltre MD - 02/17/2025 8:40 AM EDT Subjective History was provided by the patient. Ja Steve is a 64 y.o. male who presents for evaluation of ongoing cough. Now with 9-day duration of cough, congestion, rhinorrhea, and sore throat. Denies F/C/N/V/D. No significant improvement with OTC decongestants. Denies CP/SOB/HERNANDEZ. Was seen on 02/11/2025. Found to have negative rapid COVID-19, Influenza A/B, and Strep tests. Was prescribed Benzonatate. Objective Vitals: 02/17/25 0849 BP: 133/79 BP Location: Left arm Patient Position: Sitting BP Cuff Size: Adult Pulse: 69 Resp: 18 Temp: 98.5 ??F (36.9 ??C) TempSrc: Temporal SpO2: 96% Weight: 221 lb (100 kg) Physical Exam Vitals reviewed. Constitutional: Appearance: Normal appearance. HENT: Head: Normocephalic and atraumatic. Right Ear: Tympanic membrane, ear canal and external ear normal. Left Ear: Tympanic membrane, ear canal and external ear normal. Nose: Congestion and rhinorrhea present. Mouth/Throat: Mouth: Mucous membranes are dry. Pharynx: Oropharynx is clear. No oropharyngeal exudate or posterior oropharyngeal erythema. Eyes: Extraocular Movements: Extraocular movements intact. Conjunctiva/sclera: Conjunctivae normal. Pupils: Pupils are equal, round, and reactive to light. Cardiovascular: Rate and Rhythm: Normal rate and regular rhythm. Heart sounds: Normal heart sounds. Pulmonary: Effort: Pulmonary effort is normal. Breath sounds: Normal breath sounds. Musculoskeletal: General: Normal range of motion. Cervical back: Normal range of motion and neck supple. Lymphadenopathy: Cervical: No cervical adenopathy. Skin: General: Skin is warm and dry. Neurological: General: No focal deficit present. Mental Status: He is alert and oriented to person, place, and time. Psychiatric: Mood and Affect: Mood normal. Behavior: Behavior normal. Office Visit on 02/17/2025 Component Date Value Ref Range Status Influenza A 02/17/2025 Negative Negative, Indeterminate Final Influenza B 02/17/2025 Negative Negative, Indeterminate Final Rapid COVID Ag 02/17/2025 Negative Final Ja was seen today for cough. Diagnoses and all orders for this visit: Cough in adult patient - Influenza A (ID NOW Rapid Molecular) - Influenza B (ID NOW Rapid Molecular) - POCT Rapid COVID Ag Patient with a clinical presentation of viral URI However, now with symptoms for 9 days Normal pulmonary exam and no respiratory distress O2 sat borderline Again, negative for COVID-19 and Influenza A/B Will check Respiratory Panel Check CXR Discussed supportive care with ample hydration, sleep position and rest OTC supportive medications reviewed Droplet precautions discussed Advised to contact the clinic if no improvement of symptoms Indications for UC/ER use reviewed documented in this encounter Plan of Treatment Upcoming Encounters Date Type Department Care Team (Late st Contact Info) Description 03/01/2025 11:30 AM EDT Office Visit [facility] [address] [place] [address] Viry Merino MD [address] [place] [address] 03/25/2025 4:00 PM EDT Office Visit [facility] [address] [place] [address] Viry Merino MD [address] [place] [address] Scheduled Orders Name Type Priority Associated Diagnoses Orde r Schedule Respiratory Viral Panel PCR Lab Routine Cough in adult patient Expected: 02/17/2025 (Approximate), Expires: 02/17/2026 XR Chest 2 Views Imaging Routine Cough in adult patient Expected: 02/17/2025, Expires: 02/17/2026 documented as of this encounter Procedures Procedure Name Priority Date/Time Associated Diagnosis Comments POCT INFLUENZA B (ID NOW RAPID MOLECULAR) Routine 02/17/2025 9:01 AM EDT Cough in adult patient POCT INFLUENZA A (ID NOW RAPID MOLECULAR) Routine 02/17/2025 9:01 AM EDT Cough in adult patient POCT RAPID COVID ANTIGEN Routine 02/17/2025 8:52 AM EDT Cough in adult patient documented in this encounter Results * Influenza B (ID NOW Rapid Molecular) (02/17/2025 9:01 AM EDT) Influenza B Negative Negative, Indeterminate [facility] Swab 02/17/2025 9:01 AM EDT Gen Beltre MD POINT OF CARE TEST ENTER/EDIT OR DERABLES Final Result [facility] [address] [place] [address] [phone] * Influenza A (ID NOW Rapid Molecular) (02/17/2025 9:01 AM EDT) Influenza A Negative Negative, Indeterminate [facility] Swab 02/17/2025 9:01 AM EDT us Gen Beltre MD POINT OF CARE TEST ENTER/EDIT OR DERABLES Final Result [facility] [address] [place] [address] [phone] * POCT Rapid COVID Ag (02/17/2025 8:52 AM EDT) Rapid COVID Ag Negative Swab 02/17/2025 8:52 AM EDT us Gen Beltre MD POINT OF CARE TEST ENTER/EDIT OR DERABLES Final Result documented in this encounter Visit Diagnoses Diagnosis Cough in adult patient documented in this encounter Additional Health Concerns Assessment Noted Time PHQ-9 Depression Total Score: 0 04/06/20 24 2:14 PM EDT documented as of this encounter Care Teams Proctologist Relationship Specialty Start Date End Date Viry Merino MD [address] [place] [id number] PCP - General Internal Medicine 09/29/18 documented as of this encounter
--- OUTSIDE RECORDS SUMMARY | 2025-02-17 09:36 | XMS_ITS | Encounter Summary ---
Author Organization [employer] Address [address] [place] [address] Care Team Providers Care Trauma Nurse Name Role Phone Viry Merino MD Primary Care Provider [phone] Encounter Details Date Type Department Care Team (Late Contact Info) Description 01/30/2023 Orders Only [facility] [address] [place] [address] Randa Briscoe LPN Social History Tobacco Use Types Packs/Day [...] Description 03/01/2025 11:30 AM EDT Office Visit [facility] [address] [place] [address] Viry Merino MD [address] [place] [address] 03/25/2025 4:00 PM EDT Office Visit [facility] [address] [place] [address] Viry Merino MD [address] [place] [address] documented as of this encounter Visit Diagnoses Not on filedocumented in this encounter Additional Health Concerns Assessment Noted Time PHQ-9 Depression Total Score: 1 12/24/19 23 10:32 AM EDT documented as of this encounter Care Teams Trauma Nurse Relationship Specialty Start Date End Date Viry Merino MD [address] [place] [address] PCP - General Internal Medicine 09/29/18 documented as of this encounter
--- OUTSIDE RECORDS SUMMARY | 2025-02-17 09:36 | XMS_ITS | Encounter Summary ---
Author Organization [employer] Address [address] [place] [address] [place] [address] Care Team Providers Care Oven Roaster Name Role Phone Viry Merino MD Primary Care Provider [phone] Encounter Details Date Type Department Care Team ([facility] Contact Info) Description 06/04/2023 Orders Only [facility] [address] [place] [address] Maru Duribn LPN Social History Tobacco Use Types Packs/Day [...] Description 03/01/2025 11:30 AM EDT Office Visit [facility] [address] [place] [address] Viry Merino MD [address] [place] [address] 03/25/2025 4:00 PM EDT Office Visit [facility] [address] [place] [address] Viry Merino MD [address] [place] [address] documented as of this encounter Visit Diagnoses Not on filedocumented in this encounter Additional Health Concerns Assessment Noted Time PHQ-9 Depression Total Score: 1 12/24/19 23 10:32 AM EDT documented as of this encounter Care Teams Oven Roaster Relationship Specialty Start Date End Date Viry Merino MD [address] [place] [address] PCP - General Internal Medicine 09/29/18 documented as of this encounter
--- OUTSIDE RECORDS SUMMARY | 2025-02-17 09:36 | XMS_ITS | Clinical Summary ---
Author Organization [facility] Address [address] [place] [address] Care Team Providers Care Underground Bolting Machine Operator Name Role Phone Unknown Primary Care Provider [phone] Allergies No known active allergies Social History Tobacco Use Types Packs/Day Years Used Date Smoking Tobacco: Never Smokeless Tobacco: Never Sex and Gender Information Value Date Recorded Sex Assigned at Not on file Legal Sex Male 2:28 PM EDT Gender Identity Not on file Sexual Orientation Not on file Last Filed Vital Signs Vital Sign Reading Time Taken Comments Blood Pressure 127/85 04/12/2018 7:57 PM EDT Pulse 57 04/12/2018 7:57 PM EDT Temperature 35.6 ??C (96 ??F) 04/12/2018 2:35 PM EDT Respiratory Rate 16 04/12/2018 7:57 PM EDT Oxygen Saturation 97% 04/12/2018 7:57 PM EDT Inhaled Oxygen Concentration - - Weight - - Height - - Body Mass Index - - Plan of Treatment Health Maintenance Due Date Last Done Comments Hepatitis C Virus Screening 1960 HIV Screening 1973 DTaP/Tdap/Td Vaccines (1 - Tdap) 1979 Colonoscopy 2005 Pneumococcal Vaccines 50+ (1 of 1 - PCV) 2010 Zoster (Shingles) Vaccine (1 of 2) 2010 COVID-19 Vaccine ( - 2023-2 5 season) 2024 Influenza Vaccine 04/29/2025 RSV Vaccine 60 years and old er and Patients (1 - 1-dose 75+ series) 2035 Hepatitis B Vaccines Aged Out No long er eligible based on patient's age to complete this topic Insurance [facility] [employer] OUT OF [place] [facility] Care Teams Underground Bolting Machine Operator Relationship Specialty Start Date End Date Unknown Unknow Provider Address PCP - General 04/12/18
--- OUTSIDE RECORDS SUMMARY | 2025-02-17 09:36 | XMS_ITS | Clinical Summary ---
Author Organization [employer] Address [address] [facility] 7t [place] [address] Care Team Providers Care Glass Bulb Machine Adjuster Name Role Phone Viry Merino MD Primary Care Provider [phone] Allergies No known active allergies Medications Aspirin Low Dose 81 MG EC tablet TAKE 1 TABLET BY MOUTH EVERY DAY 3 Active lisinopril-hydroCH LOROthiazide 10-12.5 MG tablet TAKE 1 TABLET BY MOUTH EVERY DAY 3 Active fluticasone (Flonase) 50 MCG/ACT nasal sprayIndications:S easonal allergic rhinitis due to other allergic trigger SHAKE LIQUID AND USE 1 TO 2 SPRAYS IN EACH NOSTRIL EVERY DAY NEEDED 64 g 11 4 Active carbamide peroxide (Debrox) 6.5 % otic solutionIndication s:Bilateral impacted cerumen Apply 5 drop into right ear once a day 15 mL 1 4 Active triamcinolone (Kenalog) 0.1 % creamIndications:R trupti and nonspecific skin eruption Apply topically if needed in the morning and at bedtime (pain and swelling). 30 g 4 Active azelastine (Astelin) 0.1 % nasal sprayIndications:N on-seasonal allergic rhinitis due to other allergic trigger Administer 1 spray into each nostril 2 times daily. Use in each nostril as directed 30 mL 12 4 025 Active diphenhydrAMINE (BENADryl) 25 MG tabletIndications: Seasonal allergic rhinitis due to other allergic trigger Take 1 tablet (25 mg) by mouth every 6 (six) hours if needed for itching. 30 tablet 4 Active cetirizine (ZyrTEC) 10 MG tabletIndications: Seasonal allergic rhinitis due to other allergic trigger Take 1 tablet (10 mg) by mouth Once per day. 30 tablet 11 4 025 Active methocarbamol (Robaxin) 750 MG tabletIndications: Muscle spasm,Back muscle spasm Take 1 tablet (750 mg) by mouth 4 times daily for 10 days. 40 tablet 4 Active Magnesium 400 MG capsule Take 400 mg by mouth at bedtime. 90 capsule 1 4 Active lisinopril-hydroCH LOROthiazide 10-12.5 MG tablet TAKE 1 TABLET BY MOUTH EVERY DAY 30 tablet 11 4 Active Allergy Relief 180 MG tabletIndications: Non-seasonal allergic rhinitis due to other allergic trigger TAKE 1 TABLET(180 MG) BY MOUTH EACH DAY NEEDED FOR ALLERGIES 30 tablet 3 4 Active triamcinolone (Kenalog) 0.1 % creamIndications:P ruritus Apply topically 2 times daily. 80 g 11 4 Active fexofenadine (Melita) 180 MG tablet Take 1 tablet (180 mg) by mouth if needed each day (Allergies). 30 tablet 11 4 025 Active hydrOXYzine pamoate (Vistaril) 25 MG capsuleIndications :Pruritus Take 1 capsule (25 mg) by mouth if needed at bedtime for itching. 30 capsule 11 4 025 Active omeprazole (PriLOSEC) [address] capsuleIndications :Gastroesophageal reflux disease without esophagitis TAKE 1 CAPSULE(20 MG) BY MOUTH BEFORE BREAKFAST 90 capsule 3 4 Active amLODIPine (Norvasc) 2.5 MG tablet TAKE 1 TABLET BY MOUTH EVERY DAY 90 tablet 3 4 Active simvastatin (Zocor) 40 MG tabletIndications: Other hyperlipidemia TAKE 1 TABLET(40 MG) BY MOUTH AT BEDTIME 90 tablet 3 4 Active Aspirin Low Dose 81 MG EC tablet TAKE 1 TABLET BY MOUTH EVERY DAY 30 tablet 11 5 Active gabapentin (Neurontin) 300 MG capsule TAKE 1 CAPSULE BY MOUTH THREE TIMES DAILY 90 capsule 2 5 Active benzonatate (Tessalon Perles) 100 MG capsuleIndications :Viral URI with cough Take 1 capsule (100 mg) by mouth if needed in the morning, at noon, and at bedtime for cough for up to 7 days. Do not crush or chew. 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 Prescribing Magnesium for cramps, drink 1-2 hours before bed. Relevant Medications Magnesium 400 MG Capsule Rash and nonspecific skin eruption 03/18/2024 Assessment & Plan (03/18/2024 11:11 AM EDT): Poison ericka? I will treat wit benadryl and triamcinolone RTC if symptoms persist Irritation of right eye 01/22/2024 Assessment & Plan (01/22/2024 10:04 AM EDT): New onset, pt with c/o working with wood the day before things debris might have gotten into it. On exam evidence of subconjunctival hemorrhage, fluorescein test shows pooling suggestive of an abrasion Case discussed with Dr. Thompson Trauma Therapist who will be seeing the patient later today Plan: As per Dr. Thompson Tinea pedis of both feet 11/01/2022 Assessment & Plan (11/01/2022 6:50 PM EST): Seen through video, no aparent sign of infection, lesion seem to be related to fungal infection, will provide clotrimazole to be applied bid, maintain area dry, call back if not improving in 1 month Essential hypertension 12/18/2020 Sleep apnea 06/01/2019 Encounters Date Type Department Care Team Description 02/17/2025 8:40 AM EDT Office Visit [facility] WALK-IN [address] [address] Gen Beltre MD Cough in adult patient 02/17/2025 Travel 02/11/2025 9:00 AM EDT Office Visit [facility] C[facility] [address] [place] [address] Gen Beltre MD Viral URI with cough 02/11/2025 Travel 01/10/2025 Refill [facility] [address] [place] [address] Viry Merino MD 12/20/2024 3:45 PM EDT Office Visit [facility] [address] [place] [address] Viry Merino MD Essential hypertension (Primary Dx); Left leg pain; Dietary counseling; Exercise counseling; Class 2 severe obesity due to excess calories with serious comorbidity and body mass index (BMI) of 36.0 to 36.9 in adult ([facility]) 12/20/2024 Travel 12/20/2024 Refill [facility] [address] [place] [address] iVry Merino MD 12/14/2024 Telephone [facility] MEDICINE [address] [place] [phone] Viry Merino MD Call Back Request 11/29/2024 Telephone [facility] [address] [place] [phone] Viry Merino MD nurse triage from Last 3 Months Family History Medical History Relation Name Comments Diabetes Mother Hypertension Mother Kidney disease Mother Stroke Mother Relation Name Status Comments Mother Social History Tobacco Use Types Packs/Day Years Used Date Smoking Tobacco: Never Passive Smoke Exposure: Never Smokeless Tobacco: Never Tobacco Cessation:Counseling Given: Not Answered Depression Answer Date Recorded Patient Health Questionnaire-9 [...] Orientation Straight 07/29/2022 10 :18 AM EDT Last Filed Vital Signs Vital Sign Reading Time Taken Comments Blood Pressure 133/79 02/17/2025 8:49 AM EDT Pulse 69 02/17/2025 8:49 AM EDT Temperature 36.9 ??C (98.5 ??F) 02/17/2025 8:49 AM ED T Respiratory Rate 18 02/17/2025 8:49 AM EDT Oxygen Saturation 96% 02/17/2025 8:49 AM EDT Inhaled Oxygen Concentration - - Weight 100 kg (221 lb) 02/17/2025 8:49 AM EDT Height 167.6 cm (5' 6 ) 12/20/2024 3:45 PM EDT Body Mass Index 35.67 12/20/2024 3:45 PM EDT Plan of Treatment Upcoming Encounters Date Type Department Care Team (Late st Contact Info) Description 03/01/2025 11:30 AM EDT Office Visit [facility] [address] [place] [address] Viry Merino MD [address] [place], [place] [phone] 03/25/2025 4:00 PM EDT Office Visit [facility] [address] [place] [address] Viry Merino MD [address] [place] [address] Health Maintenance Due Date Last Done Comments CT Colonography 1960 FIT DNA/Cologuard 1960 FIT 1960 FOBT 1960 Sigmoidoscopy 1960 Disability Screening 1960 Pneumococcal Vaccine: 50+ Years (1 of 1 - PCV) 2010 Depression Screening 04/06/2025 04/06/2024, 04/06/20 SDOH Screening 04/06/2025 04/06/2024 Tobacco Screening 05/03/2025 05/03/2024 Alcohol/Substance Use Screening 12/20/2025 12/20/2024 DTaP/Tdap/Td Vaccines (2 - Td or Tdap) 12/05/2026 12/05/2016 Lipid Panel 07/18/2027 07/18/2022, 06/10/2020, 01/30/2021 Colonoscopy 01/06/2029 Colorectal Cancer Screening 01/06/2029 RSV Patients and Patients Aged 60 years or older (1 - 1-dose 75+ series) 2035 HIV Screening Completed 07/18/2022 Hepatitis C Screening Completed 03/12/2024 , 03/03/2024, 07/18/2022 Zoster Vaccines Completed 04/13/2024, 12/03/2023 COVID-19 Vaccine Completed 07/27/2024, , 09/14/2021, Additional history exists Influenza Vaccine Completed 07/27/2024, , 07/15/2022, Additional history exists HIB Vaccines Aged Out No longer eligi ble based on patient's age to complete this topic HPV Vaccines Aged Out No longer eligi ble based on patient's age to complete this topic Hepatitis A Vaccines Aged Out No long er eligible based on patient's age to complete this topic Hepatitis B Vaccines Aged Out No long er eligible based on patient's age to complete this topic IPV Vaccines Aged Out No longer eligi ble based on patient's age to complete this topic Meningococcal B Vaccine Aged Out No l onger eligible based on patient's age to complete this topic Meningococcal Vaccine Aged Out No adriana trevor eligible based on patient's age to complete this topic RSV under 20 months Aged Out No longe r eligible based on patient's age to complete this topic Rotavirus Vaccines Aged Out No longer eligible based on patient's age to complete this topic Procedures Procedure Name Priority Date/Time Associated Diagnosis Comments POCT INFLUENZA B (ID NOW RAPID MOLECULAR) Routine 02/17/2025 9:01 AM EDT Cough in adult patient POCT INFLUENZA A (ID NOW RAPID MOLECULAR) Routine 02/17/2025 9:01 AM EDT Cough in adult patient POCT RAPID COVID ANTIGEN Routine 02/17/2025 8:52 AM EDT Cough in adult patient POCT INFLUENZA A (ID NOW RAPID MOLECULAR) Routine 02/11/2025 9:19 AM EDT Viral URI with cough POCT RAPID STREP A Routine 02/11/2025 9: 18 AM EDT Viral URI with cough POCT INFLUENZA B (ID NOW RAPID MOLECULAR) Routine 02/11/2025 9:18 AM EDT Viral URI with cough POCT RAPID COVID ANTIGEN Routine 02/11/2025 9:10 AM EDT Viral URI with cough HEPATITIS PANEL, GENERAL Routine 03/12/2024 8:34 AM EDT Transaminitis HIV 1/2 ANTIGEN/ANTIBODY, FOURTH GENERATION W/RFL Routine 07/18/2022 9:23 AM EDT LIPID PANEL, STANDARD Routine 07/18/2022 9:23 AM EDT from Last 3 Months or Most Recently Relevant to Health Maintenance Results * Influenza B (ID NOW Rapid Molecular) (02/17/2025 9:01 AM EDT) Only the most recent of2 resultswithin the time period is included. Pathologist [facility] Influenza B Negative Negative, Indeterminate [facility] Swab 02/17/2025 9:01 AM EDT us Gen Beltre MD POINT OF CARE TEST ENTER/EDIT OR DERABLES Final Result Performing Organization Address [facility] Co de Phone Number [facility] [address] [place] [phone] * Influenza A (ID NOW Rapid Molecular) (02/17/2025 9:01 AM EDT) Only the most recent of2 resultswithin the time period is included. [facility] Influenza A Negative Negative, Indeterminate [facility] Swab 02/17/2025 9:01 AM EDT us Gen Beltre MD POINT OF CARE TEST ENTER/EDIT OR DERABLES Final Result Performing Organization Address [facility] de Phone Number [facility] [address] [place] [phone] * POCT Rapid COVID Ag (02/17/2025 8:52 AM EDT) Only the most recent of2 resultswithin the time period is included. [facility] Rapid COVID Ag Negative Swab 02/17/2025 8:52 AM EDT us Gen Beltre MD POINT OF CARE TEST ENTER/EDIT OR DERABLES Final Result * POCT rapid strep A manually resulted (02/11/2025 9:18 AM EDT) [facility] Rapid Strep A Screen Negative Negative, None Detected Swab 02/11/2025 9:18 AM EDT us Gen Beltre MD POINT OF CARE TEST ENTER/EDIT OR DERABLES Final Result * Hepatitis A,B,C Profile (03/12/2024 8:34 AM EDT) Hepatitis A IgM Nonreactive Nonreactive [facility] Comment:IgM antibodies to SOTO V not detected; does not exclude earlyacute or recovered HAV infection. ~Hepatitis B Surface Antibody NONREACTIVE Nonreactive [facility] Comment:Nonreactive: < 8.00 mIU/mL Hepatitis B Core Antibody Nonreactive Nonreactive [facility] Hepatitis C Antibody Nonreactive Nonreactive [facility] Comment:Antibodies to HCV no t detected; does not exclude early acuteHCV infection. Hepatitis B Surface Ag Negative Negative [facility] Blood Venous blood specimen / Unknown 03/12/2024 8:34 AM EDT 03/12/2024 2:39 PM EDT Viry Merino MD LAB BLOOD ORDERABLES Final Result [facility] [address] [place] [phone] * HIV 1/2 ANTIGEN/ANTIBODY,FOURTH GENERATION W/RFL (07/18/2022 9:23 AM EDT) HIV-1/2 ANTIGEN AND ANTIBODIES, 4TH GENERATION W/ REFLEX NON-REACT FARZANA NON-REACT FARZANA [facility] Comment: HIV-1 antigen and HIV-1/HIV-2 antibodies were not detected. There is no laboratory evidence of HIV infection. ?? PLEASE NOTE: This information has been disclosed to you from records whose confidentiality may be protected by state law. ??If your state requires such protection, then the state law prohibits you from making any further disclosure of the information without the specific written consent of the person to whom it pertains, or as otherwise permitted by law. A general authorization for the release of medical or other information is NOT sufficient for this purpose. ? For additional information please refer to http://education.[employer]/faq/WYY794 (This link is being provided for informational/ educational purposes only.) ? The performance of this assay has not been clinically validated in patients less than 2 years old. ?? 07/18/2022 9:23 AM EDT us Viry Merino MD LAB BLOOD ORDERABLES Final Result Performing Organization Address [facility] Co de Phone Number [facility] * (ABNORMAL) LIPID PANEL, STANDARD (07/18/2022 9:23 AM EDT) Chol/HDLC Ratio 3.5 <5.0 (calc) [facility] Cholesterol, Total 138 <200 mg/dL [facility] HDL Cholesterol 40 > OR = 40 mg/dL [facility] LDL Cholesterol 73 mg/dL (calc) [facility] Comment: Reference range: <100 ?? Desirable range <100 mg/dL for primary prevention; ?? <70 mg/dL for patients with CHD or diabetic patients ?? with > or = 2 CHD risk factors. ?? LDL-C is now calculated using the Jaswant-Fernández ?? calculation, which is a validated novel method providing ?? better accuracy than the Friedewald equation in the ?? estimation of LDL-C. ?? Jaswant SS et al. AL. 2013;310(19): 8804-9557 ?? (http://education.[employer].com.com/faq/ILZ068) Non-HDL Cholesterol 98 <130 mg/dL (calc) [facility] Comment: For patients with diabetes plus 1 major ASCVD risk ?? factor, treating to a non-HDL-C goal of <100 mg/dL ?? (LDL-C of <70 mg/dL) is considered a therapeutic ?? option. Triglycerides 178(H) <150 mg/dL [facility] 07/18/2022 9:23 AM EDT us Viry Merino MD LAB BLOOD ORDERABLES Final Result Performing Organization Address [facility] Co de Phone Number [facility] from Last 3 Months or Most Recently Relevant to Health Maintenance Insurance Care Teams Glass Bulb Machine Adjuster Relationship Specialty Start Date End Date Viry Merino MD [address] [place] [phone] PCP - General Internal Medicine 09/29/18
--- OUTSIDE RECORDS SUMMARY | 2025-02-17 09:36 | XMS_ITS | Encounter Summary ---
Author Organization [employer] Address [address] [place] [address] Care Team Providers Care Crime Analyst Name Role Phone Viry Merino MD Primary Care Provider [phone] Encounter Details Date Type Department Care Team (Late Contact Info) Description 12/13/2022 Orders Only [facility] [address] [place], [place] [phone] Viry Merino MD [address] [place] [address] Social History Tobacco Use Types Packs/Day Years Used Date Smoking Tobacco: Never Assessed Sex and Gender Information Value Date Recorded Sex Assigned at Male 07/29/2022 10:18 AM EDT Legal Sex Male 10:18 AM EDT Gender Identity Male 07/29/2022 10:18 AM EDT Sexual Orientation Straight 07/29/2022 10 :18 AM EDT documented as of this encounter Plan of Treatment Upcoming Encounters Date Type Department Care Team (Late Contact Info) Description 03/01/2025 11:30 AM EDT Office Visit [facility] [address] [place] [address] Viry Merino MD [address] [place] [address] 03/25/2025 4:00 PM EDT Office Visit [facility] [address] [place] [address] Viry Merino MD [address] [place] [address] documented as of this encounter Visit Diagnoses Not on filedocumented in this encounter Care Teams Crime Analyst Relationship Specialty Start Date End Date Viry Merino MD [address] [place] [phone] PCP - General Internal Medicine 09/29/18 documented as of this encounter
--- OUTSIDE RECORDS SUMMARY | 2025-02-17 09:36 | XMS_ITS | Encounter Summary ---
Author Organization [employer] Address [address] [facility] 7 [place] [address] Care Team Providers Care Faculty Dean Name Role Phone Viry Merino MD Primary Care Provider [phone] Reason for Visit * Reason Comments Med Refill Encounter Details Date Type Department Care Team ([facility] st Contact Info) Description 03/25/2024 Refill [facility] [address] [place], [place] [phone] Viry Merino MD [address] [place] [address] Seasonal allergic rhinitis due to other allergic trigger Social History Tobacco Use Types Packs/Day Years Used Date Smoking Tobacco: Never Passive Smoke Exposure: Never Smokeless Tobacco: Never Depression Answer Date Recorded Patient Health Questionnaire-9 Score 1 12/23/2022 Housing Stability Answer Date Recorded What is your housing situation today? I have manolo flores 07/28/[address] you li ve. Do you have problems with any of the following? None of the above 07/28/2023 Food Insecurity Answer Date Recorded Within the past 12 months, y ou worried that your food would run out before you got money to buy more: Never True 07/28/2023 Within the past 12 months,th e food you bought just didn't last and you didn't have enough money to get more: Never True Transportation Answer Date Recorded In the past 12 months, has l ack of transportation kept you from medical appts, meetings, work or from getting things needed for daily living? No 07/28/2023 Utilities Answer Date Recorded In the past 12 months, has t he electric, gas, oil or water [employer] threatened to shut off services in your home? No 07/28/2023 Depression Answer Date Recorded Patient Health Questionnaire-2 [...] Description 03/01/2025 11:30 AM EDT Office Visit [facility] [address] [place] [address] Viry Merino MD [address] [place] [address] 03/25/2025 4:00 PM EDT Office Visit [facility] [address] [place] [address] Viry Merino MD [address] [place] [address] documented as of this encounter Visit Diagnoses Diagnosis Seasonal allergic rhinitis due to other allergic trigger documented in this encounter Additional Health Concerns Assessment Noted Time PHQ-9 Depression Total Score: 1 12/24/19 23 10:32 AM EDT documented as of this encounter Care Teams Faculty Dean Relationship Specialty Start Date End Date Viry Merino MD [address] [place] [address] PCP - General Internal Medicine 09/29/18 documented as of this encounter
--- OUTSIDE RECORDS SUMMARY | 2025-02-17 09:37 | XMS_ITS | Encounter Summary ---
Author Organization [employer] Address [address] [facility] [address] [place] [address] Care Team Providers Care Pneumatic Jack Operator Name Role Phone Viry Merino MD Primary Care Provider [phone] Reason for Visit * Reason Onset Date Comments Results 03/08/2024 Encounter Details Date Type Department Care Team ([facility] st Contact Info) Description 03/08/2024 Telephone [facility] [address] [place] [address] Viry Merino MD [address] [place] [address] Results Social History Tobacco Use Types Packs/Day Years [...] AM EDT documented as of this encounter Miscellaneous Notes * Telephone Encounter - Yuliana Spence RN - 03/11/2024 2:25 PM EDT Placed call to pt regarding message from PCP. Pt informed of lab results and need for further bloodwork. Pt states doing ABD US yesterday and was informed at [facility] results would be sent to PCP office. Pt was informed that [facility] has been taking about 2-3 weeks for results d/t staffing shortages. Pt advised to see if when he comes in for sick visit he can inquire if the results are in. Pt advised to drink more fluids containing sodium as pt sodium was low. Pt advised to drink pedialyte, gatorade, or powerade. Pt verbalized understanding and agrees with plan. * Telephone Encounter - Mira Holliday - 03/08/2024 1:33 PM EDT TC from pt requesting call back regarding Results. Type of results: labs Date when done: 03/04/24 Facility: [facility] documented in this encounter Plan of Treatment Upcoming Encounters Date Type Department Care Team (Late st Contact Info) Description 03/01/2025 11:30 AM EDT Office Visit [facility] [address] [place] [address] Viry Merino MD [address] [place] [address] 03/25/2025 4:00 PM EDT Office Visit [facility] [address] [place] [address] Viry Merino MD [address] [place] [address] documented as of this encounter Visit Diagnoses Not on filedocumented in this encounter Additional Health Concerns Assessment Noted Time PHQ-9 Depression Total Score: 1 12/24/19 23 10:32 AM EDT documented as of this encounter Care Teams Pneumatic Jack Operator Relationship Specialty Start Date End Date Viry Merino MD [address] [place] [phone] PCP - General Internal Medicine 09/29/18 documented as of this encounter
--- OUTSIDE RECORDS SUMMARY | 2025-02-17 09:37 | XMS_ITS | Encounter Summary ---
Author Organization [employer] Address 75 [facility] 7 [place] [address] Care Team Providers Care Area Cleaner Name Role Phone Viry Merino MD Primary Care Provider [phone] Reason for Visit * Reason Comments Med Refill Encounter Details Date Type Department Care Team ([facility] st Contact Info) Description 07/04/2023 Refill [facility] MED & PEDS [address] [place], [place] [phone] Viry Merino MD [address] [place] [address] Social History Tobacco Use Types Packs/Day Years Used Date Smoking Tobacco: Never Passive Smoke Exposure: Never Smokeless Tobacco: Never Depression Answer Date Recorded Patient Health Questionnaire-9 Score 1 12/23/2022 Housing Stability Answer Date Recorded What is your housing situation today? I have manolo flores 07/06/[address] you li ve. Do you have problems with any of the following? None of the above 07/06/2023 Food Insecurity Answer Date Recorded Within the past 12 months, y ou worried that your food would run out before you got money to buy more: Never True 07/06/2023 Within the past 12 months,th e food you bought just didn't last and you didn't have enough money to get more: Never True 04/2023 Transportation Answer Date Recorded In the past 12 months, has l ack of transportation kept you from medical appts, meetings, work or from getting things needed for daily living? No 07/06/2023 Utilities Answer Date Recorded In the past 12 months, has t he electric, gas, oil or water company threatened to shut off services in your home? No 07/06/2023 Depression Answer Date Recorded Patient Health Questionnaire-2 [...] Description 03/01/2025 11:30 AM EDT Office Visit [facility] MED & PEDS 505 [place] [address] Viry Merino MD 505 [place] [address] 03/25/2025 4:00 PM EDT Office Visit [facility] MED & PEDS 505 [place] [address] Viry Merino MD 505 [place] [address] documented as of this encounter Visit Diagnoses Not on filedocumented in this encounter Additional Health Concerns Assessment Noted Time PHQ-9 Depression Total Score: 1 12/24/19 23 10:32 AM EDT documented as of this encounter Care Teams Area Cleaner Relationship Specialty Start Date End Date Viry Merino MD 505 [place] [address] PCP - General Internal Medicine 09/29/18 documented as of this encounter
--- OUTSIDE RECORDS SUMMARY | 2025-02-17 09:37 | XMS_ITS | Encounter Summary ---
Author Organization [employer] Address 75 [facility] [address] [address] Care Team Providers Care Flower Grader Name Role Phone Viry Merino MD Primary Care Provider [phone]- [phone] Reason for Referral * Imaging (Routine) - Closed Specialty Diagnoses / Procedures Referred By Ed khoury Referred To Contact Radiology Diagnoses Transaminitis Procedures US Abdomen Complete Viry Merino MD 505 [place] [address] Phone: tel: fax: [address] Phone: tel: fax: Referral ID Status Reason Start Date Expiration Date Visits Re quested Visits Authorized [id number] Closed 03/10/2024 03/10/2025 1 1 Encounter Details Date Type Department Care Team (Late st Contact Info) Description 03/10/2024 Orders Only [facility] CH[facility] MED & PEDS [address] [place] [address] Viry Merino MD [address] [place] [address] Transaminitis (Primary Dx); Elevated blood sugar Social History Tobacco Use Types Packs/Day Years Used Date Smoking Tobacco: Never Passive Smoke Exposure: Never Smokeless Tobacco: Never Depression Answer Date Recorded Patient Health Questionnaire-9 Score 1 12/23/2022 Housing Stability Answer Date Recorded What is your housing situation today? I have manolo sing 07/28/[address] you li [...] Description 03/01/2025 11:30 AM EDT Office Visit [facility] MED & PEDS 505 [place] [address] Viry Merino MD [address] [place] [address] 03/25/2025 4:00 PM EDT Office Visit [facility] MED & PEDS [address] [place] [address] Viry Merino MD [address] [place] [address] Scheduled Orders Name Type Priority Associated Diagnoses Orde r Schedule US Abdomen Complete Imaging Routine Transaminitis Expected: 03/10/2024, Expires: 03/10/2025 documented as of this encounter Procedures Procedure Name Priority Date/Time Associated Diagnosis Comments HEPATITIS PANEL, GENERAL Routine 03/12/2024 8:34 AM EDT Transaminitis HEMOGLOBIN A1C Routine 03/12/2024 8:34 AM EDT Transaminitis Elevated blood sugar BASIC METABOLIC PANEL Routine 03/12/2024 8:34 AM EDT Transaminitis Elevated blood sugar documented in this encounter Results * Hemoglobin A1c (03/12/2024 8:34 AM EDT) Hemoglobin A1c 5.5 <6.0 % [facility] Comment:Hemoglobin A1C Refer ence Range Adults: 4.8 - 6.0 % Non diabetic: < 6.0 % Goal: < 7.0 %Additional Action Suggested: > 8.0 %Note: Hemoglobin A1c results are invalid for patients with abnormal amounts of HbF. Blood transfusions may impact the HbA1c concentration in the patient sample. Estimated Average Glucose 111 mg/dL [facility] Comment:eAG = Estimated ave rage glucose which is %A1C expressed asaverage glucose, using the formula of the C4F-CbsmzvzNlrflnd Glucose study (ADAG), Diabetes Care, Vol.31,#8,Apr. 2007 Blood Venous blood specimen / Unknown 03/12/2024 8:34 AM EDT 03/12/2024 2:39 PM EDT us Viry Merino MD LAB BLOOD ORDERABLES Final Result [facility] [address] [place] [phone] * Basic Metabolic Panel (03/12/2024 8:34 AM EDT) Sodium 137 135 - 145 mmol/L [facility] Potassium 4.7 3.3 - 5.1 mmol/L [facility] Chloride 104 96 - 108 mmol/L [facility] Carbon Dioxide 25 22 - 29 mmol/L [facility] Anion Gap 13 12 - 20 [facility] Urea Nitrogen (BUN) 14 9 - 16 mg/dL [facility] Creatinine, Serum 0.87 0.5 - 1.4 mg/dL [facility] Estimated Glomerular Filt Rate >60 [facility] Comment:NOTE: For -Am erican individuals, multiply the result by 1.210.Chronic Kidney Disease: Estimated GFR < 60 mL/min/[id number] Kidney Disease: Estimated GFR < 15 mL/min/1.73m2 Glucose 88 60 - 115 mg/dL [facility] Calcium 9.4 8.4 - 10.2 mg/dL [facility] Blood Venous blood specimen / Unknown 03/12/2024 8:34 AM EDT 03/12/2024 2:39 PM EDT us Viry Merino MD LAB BLOOD ORDERABLES Final Result Performing Organization Address [facility]/ZIP Co de Phone Number [facility] [address] [place] [phone] * Hepatitis A,B,C Profile (03/12/2024 8:34 AM EDT) Hepatitis A IgM Nonreactive Nonreactive [facility] Comment:IgM antibodies to SOTO V not detected; does not exclude earlyacute or recovered HAV infection. ~Hepatitis B Surface Antibody NONREACTIVE Nonreactive [facility] Comment:Nonreactive: < 8.00 mIU/mL Hepatitis B Core Antibody Nonreactive Nonreactive [facility] Hepatitis C Antibody Nonreactive Nonreactive [facility] Comment:Antibodies to HCV no t detected; does not exclude early acuteHCV infection. Hepatitis B Surface Ag Negative Negative [facility] Blood Venous blood specimen / Unknown 03/12/2024 8:34 AM EDT 03/12/2024 2:39 PM EDT us Viry Merino MD LAB BLOOD ORDERABLES Final Result [facility] [address] [place] [phone] documented in this encounter Visit Diagnoses Diagnosis Transaminitis- Primary Nonspecific elevation of levels of transaminase or lactic acid dehydrogenase (LDH) Elevated blood sugar Other abnormal glucose documented in this encounter Additional Health Concerns Assessment Noted Time PHQ-9 Depression Total Score: 1 12/24/19 23 10:32 AM EDT documented as of this encounter Care Teams Flower Grader Relationship Specialty Start Date End Date Viry Merino MD [address] [place] [address] PCP - General Internal Medicine 09/29/18 documented as of this encounter
--- OUTSIDE RECORDS SUMMARY | 2025-02-17 09:37 | XMS_ITS | Encounter Summary ---
Author Organization [employer] Address 75 [facility] 7 [place] [address] Care Team Providers Care Coordinator Mining Products Name Role Phone Viry Merino MD Primary Care Provider [phone] Reason for Visit * Reason Comments Med Refill Encounter Details Date Type Department Care Team ([facility] st Contact Info) Description 01/02/2024 Refill [facility] MED & PEDS [address] [place], [place] [phone] Viry Merino MD [address] [place] [address] Social History Tobacco Use Types Packs/Day Years [...] Description 03/01/2025 11:30 AM EDT Office Visit [facility] MED & PEDS [address] [place] [address] Viry Merino MD 505 [place] [address] 03/25/2025 4:00 PM EDT Office Visit [facility] MED & PEDS [address] [place] [address] Viry Merino MD [address] [place] [address] documented as of this encounter Visit Diagnoses Not on filedocumented in this encounter Additional Health Concerns Assessment Noted Time PHQ-9 Depression Total Score: 1 12/24/19 23 10:32 AM EDT documented as of this encounter Care Teams Coordinator Mining Products Relationship Specialty Start Date End Date Viry Merino MD 505 [place] [address] PCP - General Internal Medicine 09/29/18 documented as of this encounter
--- OUTSIDE RECORDS SUMMARY | 2025-02-17 09:37 | XMS_ITS | Encounter Summary ---
Author Organization [employer] Address 75 [facility] 7t [place] [address] Care Team Providers Care Warehouse Incentive Selector Name Role Phone Viry Merino MD Primary Care Provider [phone] Reason for Visit * Reason Comments Med Refill Encounter Details Date Type Department Care Team ([facility] st Contact Info) Description 08/30/2024 Refill [facility] CH[facility] MED & PEDS [address] [place], [place] [phone] Prabha Allison MD [address] [place] [address] Social History Tobacco Use Types Packs/Day Years [...] [facility] MED & PEDS [address] [place] [address] Viry Merino MD 505 [place] [address] 03/25/2025 4:00 PM EDT Office Visit [facility] MED & PEDS 505 [place] [address] Viry Merino MD [address] [place] [address] documented as of this encounter Visit Diagnoses Not on filedocumented in this encounter Additional Health Concerns Assessment Noted Time PHQ-9 Depression Total Score: 0 04/06/20 24 2:14 PM EDT documented as of this encounter Care Teams Warehouse Incentive Selector Relationship Specialty Start Date End Date Viry Merino MD 505 [place] [address] PCP - General Internal Medicine 09/29/18 documented as of this encounter
--- OUTSIDE RECORDS SUMMARY | 2025-02-17 09:37 | XMS_ITS | Encounter Summary ---
Author Organization [employer] Address 75 [facility] 7 [place] [address] Care Team Providers Care Art Preparator Name Role Phone Viry Merino MD Primary Care Provider [phone] Reason for Visit * Reason Comments Med Refill Encounter Details Date Type Department Care Team ([facility] st Contact Info) Description 02/26/2024 Refill [facility] CHC MED & PEDS [address] [place], [place] [phone] Viry Merino MD [address] [place] [address] Social History Tobacco Use Types Packs/Day Years [...] Description 03/01/2025 11:30 AM EDT Office Visit [facility] MED [facility] PEDS [address] [place] [address] Viry Merino MD [address] [place] [address] 03/25/2025 4:00 PM EDT Office Visit [facility] MED & PEDS [address] [place] [address] Viry Merino MD [address] [place] [address] documented as of this encounter Visit Diagnoses Not on filedocumented in this encounter Additional Health Concerns Assessment Noted Time PHQ-9 Depression Total Score: 1 12/24/19 23 10:32 AM EDT documented as of this encounter Care Teams Art Preparator Relationship Specialty Start Date End Date Viry Merino MD [address] [place] [address] PCP - General Internal Medicine 09/29/18 documented as of this encounter
--- OUTSIDE RECORDS SUMMARY | 2025-02-17 09:37 | XMS_ITS | Encounter Summary ---
Author Organization [employer] Address 75 [facility] 7 [place] [address] Care Team Providers Care Sports Medicine Coordinator Name Role Phone Viry Merino MD Primary Care Provider [phone] [phone] Encounter Details Date Type Department Care Team ([facility] st Contact Info) Description 05/14/2024 Orders Only [facility] CHC MED & PEDS [address] [place], [place] [phone] Viry Merino MD [address] [place] [address] Social History Tobacco Use Types Packs/Day Years Used Date Smoking Tobacco: Never Passive Smoke Exposure: Never Smokeless Tobacco: Never Depression Answer Date Recorded Patient Health Questionnaire-9 Score 0 04/06/2024 Patient Health Questionnaire-9 Score 0 04/06/2024 Last PHQ-9: Questionnaire Data Not on file 0 04/06/2024 Housing Stability Answer Date Recorded What is your housing situation today? I have manolojerry flores 04/06/[address] you [...] Recorded Patient Health Questionnaire-2 Score 0 04/06/2024 Sex and Gender Information Value Date Recorded Sex Assigned at Male 07/29/2022 10:18 AM EDT Legal Sex Male 10:18 AM EDT Gender Identity Male 07/29/2022 10:18 AM EDT Sexual Orientation Straight 07/29/2022 10 :18 AM EDT documented as of this encounter Plan of Treatment Upcoming Encounters Date Type Department Care Team (Late st Contact Info) Description 03/01/2025 11:30 AM EDT Office Visit [facility] MED & PEDS [address] [place] [address] Viry Merino MD [address] [place] [address] 03/25/2025 4:00 PM EDT Office Visit [facility] MED & PEDS [address] [place] [address] Viry Merino MD [address] [place] [address] documented as of this encounter Visit Diagnoses Not on filedocumented in this encounter Additional Health Concerns Assessment Noted Time PHQ-9 Depression Total Score: 0 04/06/20 24 2:14 PM EDT documented as of this encounter Care Teams Sports Medicine Coordinator Relationship Specialty Start Date End Date Viry Merino MD [address] [place] [address] PCP - General Internal Medicine 09/29/18 documented as of this encounter
--- OUTSIDE RECORDS SUMMARY | 2025-02-17 09:37 | XMS_ITS | Clinical Summary ---
Author Organization [employer] [facility] ity Address [address] [place] [address] Care Team Providers Care Correctional Officer Name Role Phone Unavailable Primary Care Provider Unavailabl e Social History Tobacco Use Types Packs/Day Years Used Date Smoking Tobacco: Never Assessed Sex and Gender Information Value Date Recorded Sex Assigned at Not on file Legal Sex Male 5:38 AM EST Gender Identity Not on file Sexual Orientation Not on file Plan of Treatment Health Maintenance Due Date Last Done Comments DTaP,Tdap,and Td Vaccines (1 - Tdap) 1979 Pneumococcal Vaccine: 50+ Ye ars (1 of 1 - PCV) 2010 Zoster Vaccines (1 of 2) 2010 Cholesterol Screening (Lipid Panel) 09/01/2022 Colorectal Cancer Screening: Colonoscopy 09/01/2022 Depression Screening 09/01/2022 HIV Screening 09/01/2022 Hepatitis C Screening 09/01/2022 Social Influencers of Health Screening 09/01/2022 COVID-19 Vaccine (2023-2 5 season) 2024 Influenza Vaccine (Season Ended) 2025 07/02/20 19 RSV Immunization Adult Patie nts (1 - 1-dose 75+ series) 2035 HIB Vaccines Aged Out No longer eligi [...] on patient's age to complete this topic MMR Vaccines Aged Out No longer eligi ble based on patient's age to complete this topic Meningococcal ACWY Vaccine Aged Out N o longer eligible based on patient's age to complete this topic Meningococcal B Vaccine Aged Out No l onger eligible based on patient's age to complete this topic Pneumococcal Vaccine: Pediat rics (0 to 5 Years) and At-Risk Patients (6 to 64 Years) Aged Out No longer eligi ble based on patient's age to complete this topic RSV Immunization Patients Un jesus 20 months Aged Out No longer eligible b ased on patient's age to complete this topic Varicella Vaccines Aged Out No longer eligible based on patient's age to complete this topic
--- OUTSIDE RECORDS SUMMARY | 2025-02-17 09:37 | XMS_ITS | Encounter Summary ---
Author Organization [employer] Address 75 [facility] 7 [place] [address] Care Team Providers Care Unit Technician Name Role Phone Viry Merino MD Primary Care Provider [phone] Reason for Visit * Reason Comments Med Refill Encounter Details Date Type Department Care Team ([facility] st Contact Info) Description 01/02/[address] [facility] CHC MED & PEDS [address] [place], [place] [phone] Viry Merino MD 505 [place] [address] Social History Tobacco Use Types Packs/Day Years [...] Description 03/01/2025 11:30 AM EDT Office Visit [facility] MED & PEDS [address] [place] [address] Viry Merino MD 505 [place] [address] 03/25/2025 4:00 PM EDT Office Visit [facility] MED & PEDS [address] [place] [address] Viry Merino MD [address] [place] [address] documented as of this encounter Visit Diagnoses Not on filedocumented in this encounter Additional Health Concerns Assessment Noted Time PHQ-9 Depression Total Score: 1 12/24/19 23 10:32 AM EDT documented as of this encounter Care Teams Unit Technician Relationship Specialty Start Date End Date Viry Merino MD [address] [place] [address] PCP - General Internal Medicine 09/29/18 documented as of this encounter
--- OUTSIDE RECORDS SUMMARY | 2025-02-17 09:37 | XMS_ITS | Encounter Summary ---
Author Organization [employer] Address 75 [facility] 7 [place] [address] Care Team Providers Care Ecological Modeler Name Role Phone Viry Merino MD Primary Care Provider [phone]- [phone] Reason for Visit * Reason Onset Date Comments Nurse Triage 03/08/2024 Encounter Details Date Type Department Care Team ([facility] st Contact Info) Description 03/08/2024 Telephone [facility] MED & PEDS [address] [place] [address] Viry Merino MD [address] [place] [address] Nurse Triage Social History Tobacco Use Types Packs/Day Years [...] t he electric, gas, oil or water [employer] threatened to shut off services in your [...] encounter Miscellaneous Notes * Telephone Encounter - Kandi Siegel RN - 03/08/2024 4:44 PM EDT Triage call with [employer] [place] [id number] Pt reports rash that is wide spread. Pt reports redness with hive like spots, itchy, not bump or smooth, no blisters. Pt was seen in office 03/01/24 with dx of viral syndrome . Denies difficulty breathing, fever. Home care reviewed Apt with MICHELLE Marx 03/12/24 @ 315pm [facility]. Pt agrees with disposition and home care advised. Unable to verify insurance due to computer error. Protocol Used: Rash or Redness - Widespread (Adult) Protocol-Based Disposition: See in Office or Video Visit Today or Tomorrow Override (Final) Disposition: See in Office or Video Visit within 3 Days Override Reason: No appointments available Video visit not offered Positive Triage Question: * Mild widespread rash (Exception: Heat rash lasting 3 days or less.) * All higher-acuity triage questions were negative Care Advice Discussed: * Hydrocortisone Cream for Itching * Reasons To Call Back - Rash becomes purple or blood-colored or blister-like - Fever occurs or severe itching - You become worse * Telephone Encounter - Mira Holliday - 03/08/2024 1:35 PM EDT Symptom: Rash or Redness - Widespread Outcome: Schedule a same-day appointment or talk to a nurse or provider today Reason: Caller denied all higher acuity questions The caller accepted this outcome documented in this encounter Plan of Treatment Upcoming Encounters Date Type Department Care Team (Late st Contact Info) Description 03/01/2025 11:30 AM EDT Office Visit [facility] MED & PEDS [address] [facility] [place] [address] Viry Merino MD [address] [place] [address] 03/25/2025 4:00 PM EDT Office Visit [facility] MED & PEDS [address] [facility] [place] [address] Viry Merino MD [address] [place] [address] documented as of this encounter Visit Diagnoses Not on filedocumented in this encounter Additional Health Concerns Assessment Noted Time PHQ-9 Depression Total Score: 1 12/24/19 23 10:32 AM EDT documented as of this encounter Care Teams Ecological Modeler Relationship Specialty Start Date End Date Viry Merino MD [address] [place] [address] PCP - General Internal Medicine 09/29/18 documented as of this encounter
[2025-02-17 15:04] LABS: Adenovirus PCR Not Detected (Not Detect.); Bordetella parapertussis PCR Not Detected (Not Detect.); Bordetella pertussis PCR Not Detected (Not Detect.); Chlamydia pneumoniae PCR Not Detected (Not Detect.); Coronavirus 229E PCR Not Detected (Not Detect.); Coronavirus HKU1 PCR Not Detected (Not Detect.); Coronavirus NL63 PCR Not Detected (Not Detect.); Coronavirus OC43 PCR Not Detected (Not Detect.); Human metapneumovirus PCR Not Detected (Not Detect.); Influenza A PCR Not Detected (Not Detect.); Influenza B PCR Not Detected (Not Detect.); Mycoplasma pneumoniae PCR Not Detected (Not Detect.); Parainfluenza 1 PCR Not Detected (Not Detect.); Parainfluenza 2 PCR Not Detected (Not Detect.); Parainfluenza 3 PCR Not Detected (Not Detect.); Parainfluenza 4 PCR Not Detected (Not Detect.); RSV PCR Not Detected (Not Detect.); Rhino/Enterovirus PCR Not Detected (Not Detect.)
[2025-02-17 15:12] LABS: Influenza A H1 PCR Not Detected (Not Detect.); Influenza A H1-2009 PCR Not Detected (Not Detect.); Influenza A H3 PCR Not Detected (Not Detect.); SARS-CoV-2 PCR Not Detected (Not Detect.)
== END 2025-02-17 09:22 | disposition home or self-care (01) ==
LOC: HO.HHCX 09:21
PROVIDERS: Visit Provider Family Medicine
DX: R05.9 Cough, unspecified (principal)
CPT/HCPCS: 71046; 87633

== ENCOUNTER → 2025-02-17 09:22 | Outpatient (BNV) | payer MEDICARE, MEDICAID, SELFPAY | PROVIDERS: Visit Provider Radiology Diagnostic Radiology | DX: R05.9 Cough, unspecified (principal) | CPT/HCPCS: 71046 ==

== ENCOUNTER 2025-04-11 08:07 | Outpatient (REF) | payer MEDICARE, MEDICAID, SELFPAY ==
--- OUTSIDE RECORDS SUMMARY | 2025-04-11 08:12 | XMS_ITS | Encounter Summary ---
Author Organization [employer] Address [address] [address] Care Team Providers Care Farmworkers Name Role Phone Viry Merino MD Primary Care Provider [phone]- [phone] Encounter Details Date Type Department Care Team (Late Contact Info) Description 12/13/2022 Orders Only [facility] [address] [place], [place] [phone] Viry Merino MD [address] [place], [place] [phone] Social History Tobacco Use Types Packs/Day Years [...] Department Care Team (Late Contact Info) Description 06/27/2025 2:30 PM EDT Office Visit [facility] CHC MED & PEDS [address] [place], [place] [phone] Viry Merino MD [address] [place], [place] [phone] documented as of this encounter Visit Diagnoses Not on filedocumented in this encounter Care Teams Farmworkers Relationship Specialty Start Date End Date Viry Merino MD [address] [place], [place] [phone] PCP - General Internal Medicine 09/29/18 documented as of this encounter
--- OUTSIDE RECORDS SUMMARY | 2025-04-11 08:12 | XMS_ITS | Clinical Summary ---
Author Organization [employer] [facility] ity Address [address] [place] [address] Care Team Providers Care Beef Cattle Grazier Name Role Phone Unavailable Primary Care Provider [...] Influencers of Health Screening 09/01/2022 COVID-19 Vaccine ( - 2023-2 5 season) 2024 Influenza Vaccine (#1) 2025 07/02/2019 RSV Immunization Adult Patie nts (1 - [...] 5 Years) and At-Risk Patients (6 to 49 Years) Aged Out No longer eligi ble based on patient's age to complete this topic RSV Immunization Patients Un jesus 20 months Aged Out No longer eligible b ased on patient's age to complete this topic Varicella Vaccines Aged Out No longer eligible based on patient's age to complete this topic
--- OUTSIDE RECORDS SUMMARY | 2025-04-11 08:12 | XMS_ITS | Clinical Summary ---
Author Organization [facility] Address [address] [place] [address] Care Team Providers Care County Agricultural Agent Name Role Phone Unknown Primary Care Provider Allergies No known active allergies Social History [...] 57 04/12/2018 7:57 PM EDT Temperature 35.6 C (96 F) 04/12/2018 2:35 PM EDT Respiratory Rate 16 [...] patient's age to complete this topic Insurance [facility] COMMERCIAL MEDICAID OUT OF STATE [facility] Care Teams County Agricultural Agent Relationship Specialty Start Date End Date Unknown Unknow Provider Address PCP - General 04/12/18
[2025-04-11 16:06] LABS: Alanine Aminotransferase 37 U/L (0-40); Albumin Level 4.2 g/dL (3.5-5.0); Alkaline Phosphatase 75 U/L (39-117); Anion Gap 11 (12-20); Aspartate Amino Transferase 48 U/L (5-37); Blood Urea Nitrogen 21 mg/dL (9-16); Calcium 9.0 mg/dL (8.4-10.2); Carbon Dioxide 24 mmol/L (22-29); Chloride 107 mmol/L (96-108); Cholesterol 150 mg/dL (<200); Estimated Glomerular Filt Rate > 60; HDL Cholesterol 35 mg/dL (>40); Potassium 4.1 mmol/L (3.3-5.1); Sodium 138 mmol/L (135-145); Total Protein 7.1 g/dL (6.5-8.0); Triglycerides 205 mg/dL (<150)
== END 2025-04-11 08:08 | disposition home or self-care (01) ==
LOC: HO.CHCLDS 08:07
PROVIDERS: Visit Provider Internal Medicine
DX: R74.01 Elevation of levels of liver transaminase levels (principal)
CPT/HCPCS: 36415; 80053; 80061

== ENCOUNTER 2025-04-18 08:08 | Outpatient (REF) | payer MEDICARE, MEDICAID, SELFPAY ==
--- OUTSIDE RECORDS SUMMARY | 2025-04-18 08:13 | XMS_ITS | Clinical Summary ---
Author Organization [facility] Address [address] [place] [address] Care Team Providers Care Fastener Technologist Name Role Phone Unknown Primary Care Provider [...] patient's age to complete this topic Insurance [facility] [employer] [place] OUT OF STATE [facility] Care Teams Fastener Technologist Relationship Specialty Start Date End Date Unknown Unknow Provider Address PCP - General 04/12/18
--- OUTSIDE RECORDS SUMMARY | 2025-04-18 08:13 | XMS_ITS | Clinical Summary ---
Author Organization [employer] [facility] ity Address [address] [place] [address] Care Team Providers Care Mime Artist Name Role Phone Unavailable Primary Care Provider [...] Panel) 09/01/2022 Colorectal Cancer Screening: Colonoscopy 09/01/2022 HIV Screening 09/01/2022 Hepatitis C Screening 09/01/2022 Social Influencers of Health Screening 09/01/2022 COVID-19 Vaccine (1 - 2023-2 5 season) 2024 Depression Screening 09/29/2024 Influenza Vaccine (#1) 2025 07/02/2019 RSV Immunization [...]
--- OUTSIDE RECORDS SUMMARY | 2025-04-18 08:13 | XMS_ITS | Encounter Summary ---
Author Organization [employer] Address [address] [address] Care Team Providers Care Lean Manufacturing Leader Name Role Phone Viry [place] MD Primary Care Provider +1- [phone] Encounter Details Date Type Department Care Team (Late Contact Info) Description 12/13/2022 Orders Only [facility] [address] [place], [place] [phone] Viry [place] MD [address] [place], [place] [phone] Social History Tobacco Use Types Packs/Day Years [...] Description 06/27/2025 2:30 PM EDT Office Visit [facility] CHC MED & PEDS [address] [place], [place] [phone] Viry [place]ino MD [address] [place], [place] [phone] documented as of this encounter Visit Diagnoses Not on filedocumented in this encounter Care Teams Lean Manufacturing Leader Relationship Specialty Start Date End Date Viry [place]ino MD [address] [place], [place] [phone] PCP - General Internal Medicine 09/29/18 documented as of this encounter
[2025-04-18 14:18] LABS: INTERNATIONAL NORM RATIO 1.0 (0.9-1.1); Prothrombin Time 11.5 SEC (10.9-12.4)
[2025-04-18 14:30] LABS: Iron 82 mcg/dL (45-160); Percent Iron Saturation 27 % (15-50); Total Iron Binding Capacity 302 mcg/dL (228-428); Unsaturated Iron Binding 220 ug/dL
[2025-04-18 14:44] LABS: Ferritin 51 ng/mL (20-250)
[2025-04-19 08:38] LABS: HBS Num1 0.78 mIU/mL (0-7.99); ~Hepatitis B Surface Antibody NONREACTIVE (Nonreactive)
== END 2025-04-18 08:09 | disposition home or self-care (01) ==
LOC: HO.CHCLDS 08:08
PROVIDERS: Visit Provider Internal Medicine
DX: Z11.59 Encounter for screening for other viral diseases (principal); Z01.84 Encounter for antibody response examination; R74.01 Elevation of levels of liver transaminase levels
CPT/HCPCS: 36415; 82103; 82728; 82784; 83540; 85610; 86015; 86706

== ENCOUNTER 2025-06-07 10:39 | Outpatient (REF) | payer MEDICARE, MEDICAID, SELFPAY ==
--- NOTE | ~2025-06-07 | US_ITS ---
EXAMINATION: US COMPLETE ABDOMEN WITH LIVER ELASTOGRAPHY CLINICAL INFORMATION: Transaminitis COMPARISON: March 10, 2024 ultrasound of the abdomen TECHNIQUE: Real-time imaging of the abdominal viscera. Noninvasive ultrasound liver fibrosis assessment is performed using Deyanira ElastPQ point quantification shear wave elastography (pSWE) with a C5-2 MHz transducer. Multiple elastography samples are obtained. FINDINGS: PANCREAS: The visualized pancreatic head and body are normal in appearance. The remainder of the pancreas is obscured from visualization by the overlying bowel gas. ABDOMINAL AORTA: No aortic aneurysm is seen. INFERIOR VENA CAVA: Visualized portions are normal. LIVER: The liver appears hyperechogenic. Again noted is a punctate hyperechogenic focus with posterior acoustic shadowing in the right lobe measuring up to 5 mm diameter likely representing calcified granuloma. The right lobe measures 16 cm in length. The left lobe measures 12 cm in length. Main portal vein is patent with a normal direction of flow. There is continuous venous waveform. Shear wave liver elastography median stiffness is 1.7 m/s (reference: normal median stiffness is 1.3 m/s or less). IQR/median stiffness to assess sampling precision is 0.07 (reference: good quality data set is IQR/median stiffness of 0.15 or less). GALLBLADDER: The gallbladder is physiologically distended without evidence of stones, sludge, polyps, wall thickening or pericholecystic fluid. COMMON BILE DUCT: Normal in caliber measuring 0.5 cm in diameter. RIGHT KIDNEY: No hydronephrosis. No renal calculi or focal parenchymal lesions. Kidney is mildly echogenic. The kidney measures 12 cm in maximum dimension. LEFT KIDNEY: No hydronephrosis. No renal calculi or focal parenchymal lesions. The kidney is mildly echogenic. The kidney measures 13 cm in maximum dimension. SPLEEN: Unremarkable. The spleen measures 11.6 cm in maximum dimension. FREE FLUID: None seen. US/US abdomen comp w elastography IMPRESSION: 1. The liver is echogenic which can be related to hepatic steatosis or hepatic parenchymal disease. 2. Liver elastography: Measurements are suggestive of compensated advanced chroniic liver disease but need further test for confirmation. The kidneys appear hyperechoic which raises question of underlying medical renal disease. REFERENCE: Society of Radiologists in Ultrasound Liver Stiffness Thresholds (2020): LIVER STIFFNESS THRESHOLDS: *Liver Stiffness equal or less than 1.3 m/s: High probability of being normal. *Liver Stiffness less than 1.7 m/s: In the absence of other known clinical signs, rules out compensated advanced chronic liver disease. *Liver Stiffness 1.7-2.1 m/s: Suggestive of compensated advanced chronic liver disease but need further test for confirmation. *Liver Stiffness over 2.1 m/s: Rules in compensated advanced chronic liver disease. *Liver Stiffness over 2.4 m/s: Suggestive of clinically significant portal hypertension. QUALITY OF DATA SET: *IQR/Median value equal or less than 0.15 implies a quality data set. *IQR/Median value over 0.15 implies a poor quality data set. SIGNIFICANT CHANGE FROM PRIOR EXAM: Significant change if liver stiffness measurement is 10% or greater from prior exam. OTHER CONSIDERATIONS: The stage of liver fibrosis may be overestimated in the setting of acute hepatitis, liver inflammation, elevated liver function tests, hepatic vascular congestion, obstructive cholestasis, non-fasting state, and infiltrative diseases such as amyloidosis and lymphoma. In some patients with NAFLD, the liver stiffness thresholds for compensated advanced chronic liver disease may be lower. In causes other than viral hepatitis and NAFLD, liver stiffness thresholds are not well established. Electronically signed by: Tanner Benitez MD 06/07/2025 11:32 AM EDT
--- OUTSIDE RECORDS SUMMARY | 2025-06-07 12:34 | XMS_ITS | Encounter Summary ---
Author Organization [employer] [facility] Address [address] [place] [address] Care Team Providers Care Cigar Head Perforator Name Role Phone Viry [place] MD Primary Care Provider [phone]- [phone] Encounter Details Date Type Department Care Team (Late Contact Info) Description 06/04/2023 Orders Only [facility] MED & PEDS [address] [place] [address] Maru Durbin LPN Social History Tobacco Use Types Packs/Day [...] Care Team (Late st Contact Info) Description 06/27/2025 2:30 PM EDT Office Visit [facility] CHC MED & PEDS [address] [place] [address] Viry [place] MD 505 [place] [address] documented as of this encounter Visit Diagnoses Not on filedocumented in this encounter Additional Health Concerns Assessment Noted Time PHQ-9 Depression Total Score: 1 12/24/19 23 10:32 AM EDT documented as of this encounter Care Teams Cigar Head Perforator Relationship Specialty Start Date End Date Beauzile, Thevenin, MD [address] [place] [address] PCP - General Internal Medicine 09/29/18 documented as of this encounter
--- OUTSIDE RECORDS SUMMARY | 2025-06-07 12:34 | XMS_ITS | Encounter Summary ---
Author Organization [employer] Address 75 [facility] [address] [place] [address] Care Team Providers Care Packer Denture Name Role Phone Viry [place]ino MD Primary Care Provider +- [phone] Reason for Visit * Reason Onset Date Comments Results 03/08/2024 Encounter Details Date Type Department Care Team ([facility] st Contact Info) Description 03/08/2024 Telephone [facility] CHC MED & PEDS [address] [place] [address] Viry [place] MD 505 [place] [address] Results Social History Tobacco Use Types Packs/Day [...] ABD US yesterday and was informed at [facility] results would be sent to PCP office. Pt was informed that [facility] has been taking about 2-3 weeks for [...] results: labs Date when done: 03/04/24 Facility: [facility] documented in this encounter Plan of Treatment Upcoming Encounters Date Type Department Care Team (Late st Contact Info) Description 06/27/2025 2:30 PM EDT Office Visit [facility] MED & PEDS [address] [place] [address] Viry [place] MD 505 [place], [place] [phone] documented as of this encounter Visit Diagnoses Not on filedocumented in this encounter Additional Health Concerns Assessment Noted Time PHQ-9 Depression Total Score: 1 03/27/20 23 10:32 AM EDT documented as of this encounter Care Teams Packer Denture Relationship Specialty Start Date End Date Viry [place]ino MD [address] [place] [address] PCP - General Internal Medicine 09/29/18 documented as of this encounter
--- OUTSIDE RECORDS SUMMARY | 2025-06-07 12:34 | XMS_ITS | Encounter Summary ---
Author Organization [employer] Address 75 [facility] 7t [place] [address] Care Team Providers Care Letterset Press Set Up Operator Name Role Phone Viry [place] MD Primary Care Provider [phone] Encounter Details Date Type Department Care Team ([facility] st Contact Info) Description 04/20/2025 Results Follow-Up [facility] CHC MED & PEDS [address] [place], [place] [phone] Viry [place] MD 505 [place] [address] Hepatitis B Surface Antibody, Qualitative, Immunoglobulins, Quantitative, IgA, IgG, IgM, Prothrombin Time-INR, Additional followed-up results: 2 Social History Tobacco Use Types Packs/Day Years [...] Upcoming Encounters Date Type Department Care Team ([facility] st Contact Info) Description 06/27/2025 2:30 PM EDT Office Visit [facility] MED & PEDS [address] [place] [address] Viry [place] MD 505 [place] [address] documented as of this encounter Visit Diagnoses Not on filedocumented in this encounter Additional Health Concerns Assessment Noted Time PHQ-9 Depression Total Score: 0 04/06/20 24 2:14 PM EDT documented as of this encounter Care Teams Letterset Press Set Up Operator Relationship Specialty Start Date End Date Viry [place] MD 505 [place] [address] PCP - General Internal Medicine 09/29/18 documented as of this encounter
--- OUTSIDE RECORDS SUMMARY | 2025-06-07 12:34 | XMS_ITS | Encounter Summary ---
Author Organization [employer] Address [address] [address] Care Team Providers Care Wildlife Ecologist Name Role Phone Viry [place] MD Primary Care Provider [phone]- [phone] Encounter Details Date Type Department Care Team (Late Contact Info) Description 12/13/2022 Orders Only [facility] [address] [place], [place] [phone] Viry Merino MD 505 [place], [place] [phone] Social History Tobacco Use Types Packs/Day Years [...] Description 06/27/2025 2:30 PM EDT Office Visit [facility] CHC MED & PEDS 505 [place], [place] [phone] Viry Merion MD 505 [place], [place] [phone] documented as of this encounter Visit Diagnoses Not on filedocumented in this encounter Care Teams Wildlife Ecologist Relationship Specialty Start Date End Date Viry Merino MD [address] [place], [place] [phone] PCP - General Internal Medicine 09/29/18 documented as of this encounter
--- OUTSIDE RECORDS SUMMARY | 2025-06-07 12:34 | XMS_ITS | Encounter Summary ---
Author Organization [employer] Address 75 [facility] 7t [place] [address] Care Team Providers Care Veterans' Coordinator Name Role Phone Viry [place] MD Primary Care Provider [phone] [phone] Encounter Details Date Type Department Care Team ([facility] st Contact Info) Description 04/20/2025 Results Follow-Up [facility] CHC MED & PEDS 505 [place] [address] Viry Merino MD 505 [place] [address] [id number], Quantitative, Actin (Smooth Muscle) Antibody (IgG) Social History Tobacco Use Types Packs/Day Years [...] Description 06/27/2025 2:30 PM EDT Office Visit [facility] MED & PEDS [address] [place] [address] Viry Merino MD 505 [place] [address] documented as of this encounter Visit Diagnoses Not on filedocumented in this encounter Additional Health Concerns Assessment Noted Time PHQ-9 Depression Total Score: 0 04/06/20 24 2:14 PM EDT documented as of this encounter Care Teams Veterans' Coordinator Relationship Specialty Start Date End Date Viry Merino MD 505 [place] [address] PCP - General Internal Medicine 09/29/18 documented as of this encounter
--- OUTSIDE RECORDS SUMMARY | 2025-06-07 12:34 | XMS_ITS | Encounter Summary ---
Author Organization [employer] Address 75 [facility] 7 [place] [address] Care Team Providers Care Research Editor Name Role Phone Viry Merino MD Primary Care Provider [phone] Reason for Visit * Reason Comments Med Refill Encounter Details Date Type Department Care Team ([facility] st Contact Info) Description 01/02/2024 Refill [facility] CHC MED & PEDS 505 [place], [place] [phone] Viry Merino MD 505 [place] [address] Social History Tobacco Use Types Packs/Day Years [...] Description 06/27/2025 2:30 PM EDT Office Visit [facility] MED & PEDS [address] [place] [address] Viry Merino MD 505 [place] [address] documented as of this encounter Visit Diagnoses Not on filedocumented in this encounter Additional Health Concerns Assessment Noted Time PHQ-9 Depression Total Score: 1 12/24/19 23 10:32 AM EDT documented as of this encounter Care Teams Research Editor Relationship Specialty Start Date End Date Viry Merino MD 505 [place] [address] PCP - General Internal Medicine 09/29/18 documented as of this encounter
--- OUTSIDE RECORDS SUMMARY | 2025-06-07 12:34 | XMS_ITS | Encounter Summary ---
Author Organization [employer] Address 75 [facility] [address] [address] Care Team Providers Care Banking Consultant Name Role Phone Viry [place]ino MD Primary Care Provider [phone]- [phone] Reason for Referral * Imaging (Routine) - Closed Specialty Diagnoses / Procedures Referred By Ed khoury Referred To Contact Radiology Diagnoses Transaminitis Procedures US Abdomen Complete Viry Merino MD [address] [place] [address] Phone: tel: fax: [address] Phone: tel: fax: Referral ID Status Reason Start Date Expiration Date Visits Re quested Visits Authorized [id number] Closed 03/10/2024 03/10/2025 1 1 Encounter Details Date Type Department Care Team (Late st Contact Info) Description 03/10/2024 Orders Only [facility] CHC MED & PEDS [address] [place] [address] Viry Merino MD [address] [place] [address] Transaminitis (Primary Dx); Elevated blood sugar Social [...] Upcoming Encounters Date Type Department Care Team ([facility] st Contact Info) Description 06/27/2025 2:30 PM EDT Office Visit [facility] MED & PEDS [address] [place] [address] Viry Merino MD [address] [place] [address] Scheduled Orders Name Type Priority Associated Diagnoses [...] AM EDT) Hemoglobin A1c 5.5 <6.0 % [facility] Comment:Hemoglobin A1C Refer ence Range Adults: 4.8 - 6.0 % Non diabetic: < 6.0 % Goal: < 7.0 %Additional Action Suggested: > 8.0 %Note: Hemoglobin A1c results are invalid for patients with abnormal amounts of HbF. Blood transfusions may impact the HbA1c concentration in the patient sample. Estimated Average Glucose 111 mg/dL [facility] Comment:eAG = Estimated ave rage glucose which is %A1C expressed asaverage glucose, using the formula of the [id number] Glucose study (ADAG), Diabetes Care, Vol.31,#8,Apr. 2007 Blood Venous blood specimen / Unknown 03/12/2024 8:34 AM EDT 03/12/2024 2:39 PM EDT us Viry Merino MD LAB BLOOD ORDERABLES Final Result [facility] [address] [place] [phone] * Basic Metabolic Panel (03/12/2024 8:34 AM EDT) Sodium 137 135 - 145 mmol/L [facility] Potassium 4.7 3.3 - 5.1 mmol/L [facility] Chloride 104 96 - 108 mmol/L [facility] Carbon Dioxide 25 22 - 29 mmol/L [facility] Anion Gap 13 12 - 20 [facility] Urea Nitrogen (BUN) 14 9 - 16 mg/dL [facility] Creatinine, Serum 0.87 0.5 - 1.4 mg/dL [facility] Estimated Glomerular Filt Rate >60 [facility] Comment:NOTE: For -Am erican individuals, multiply the result by 1.210.Chronic Kidney Disease: Estimated GFR < 60 mL/min/1.07w3Oxptau Kidney Disease: Estimated GFR < 15 mL/min/1.73m2 Glucose 88 60 - 115 mg/dL [facility] Calcium 9.4 8.4 - 10.2 mg/dL [facility] Blood Venous blood specimen / Unknown 03/12/2024 8:34 AM EDT 03/12/2024 2:39 PM EDT us Viry Merino MD LAB BLOOD ORDERABLES Final Result Performing Organization Address [facility] Co de Phone Number [facility] [address] [place] [phone] * Hepatitis A,B,C Profile (03/12/2024 8:34 AM EDT) Hepatitis A IgM Nonreactive Nonreactive [facility] Comment:IgM antibodies to SOTO V not detected; does not exclude earlyacute or recovered HAV infection. ~Hepatitis B Surface Antibody NONREACTIVE Nonreactive [facility] Comment:Nonreactive: < 8.00 mIU/mL Hepatitis B Core Antibody Nonreactive Nonreactive [facility] Hepatitis C Antibody Nonreactive Nonreactive [facility] Comment:Antibodies to HCV no t detected; does not exclude early acuteHCV infection. Hepatitis B Surface Ag Negative Negative [facility] Blood Venous blood specimen / Unknown 03/12/2024 8:34 AM EDT 03/12/2024 2:39 PM EDT us Viry Merino MD LAB BLOOD ORDERABLES Final Result Performing Organization Address [facility] Co de Phone Number [facility] [address] [place] [phone] documented in this encounter Visit Diagnoses Diagnosis Transaminitis- Primary Nonspecific elevation of levels of transaminase or lactic acid dehydrogenase (LDH) Elevated blood sugar Other abnormal glucose documented in this encounter Additional Health Concerns Assessment Noted Time PHQ-9 Depression Total Score: 1 12/24/19 23 10:32 AM EDT documented as of this encounter Care Teams Banking Consultant Relationship Specialty Start Date End Date Beauzile, Thevenin, MD [address] [place] [phone] PCP - General Internal Medicine 09/29/18 documented as of this encounter
--- OUTSIDE RECORDS SUMMARY | 2025-06-07 12:34 | XMS_ITS | Clinical Summary ---
Author Organization [employer] [facility] ity Address [address] [place] [address] Care Team Providers Care Training And Development Specialist Name Role Phone Unavailable Primary Care Provider [...] 09/01/2022 Social Influencers of Health Screening 09/01/2022 Depression Screening 09/29/2024 COVID-19 Vaccine (1 - 2023-2 5 season) 2025 Influenza Vaccine (#1) 2025 07/02/2019 RSV Immunization [...]
--- OUTSIDE RECORDS SUMMARY | 2025-06-07 12:34 | XMS_ITS | Encounter Summary ---
Author Organization [employer] [facility] Address [address] [place] [address] Care Team Providers Care Pesticide Use Medical Coordinator Name Role Phone Viry Merino MD Primary Care Provider +1- [phone] Encounter Details Date Type Department Care Team (Late Contact Info) Description 01/30/2023 Orders Only [facility] MED & PEDS [address] [place] [address] Randa Briscoe LPN Social History Tobacco Use [...] Description 06/27/2025 2:30 PM EDT Office Visit [facility] CHC MED & PEDS [address] [place] [address] Viry Merino MD 505 [place] [address] documented as of this encounter Visit Diagnoses Not on filedocumented in this encounter Additional Health Concerns Assessment Noted Time PHQ-9 Depression Total Score: 1 12/24/19 10:32 AM EDT documented as of this encounter Care Teams Pesticide Use Medical Coordinator Relationship Specialty Start Date End Date Viry Merino MD [address] [place] [phone] PCP - General Internal Medicine 09/29/18 documented as of this encounter
--- OUTSIDE RECORDS SUMMARY | 2025-06-07 12:34 | XMS_ITS | Encounter Summary ---
Author Organization [employer] Address 75 [facility] 7 [place] [address] Care Team Providers Care Rod Puller Name Role Phone Viry Merino MD Primary Care Provider +1 [phone] Encounter Details Date Type Department Care Team ([facility] st Contact Info) Description 05/14/2024 Orders Only [facility] CHC MED & PEDS [address] [place], [place] [phone] Viry Merino MD 505 [place] [address] Social History Tobacco Use Types Packs/Day Years [...] [facility] [address] [place] [address] Viry Merino MD [address] [place] [address] documented as of this encounter Visit Diagnoses Not on filedocumented in this encounter Additional Health Concerns Assessment Noted Time PHQ-9 Depression Total Score: 0 04/06/20 24 2:14 PM EDT documented as of this encounter Care Teams Rod Puller Relationship Specialty Start Date End Date Viry Merino MD [address] [place] [address] PCP - General Internal Medicine 09/29/18 documented as of this encounter
--- OUTSIDE RECORDS SUMMARY | 2025-06-07 12:34 | XMS_ITS | Encounter Summary ---
Author Organization [employer] Address 75 [facility] 7 [place] [address] Care Team Providers Care Hr Advisor Name Role Phone Viry Merino MD Primary Care Provider [phone] Reason for Visit * Reason Comments Med Refill Encounter Details Date Type Department Care Team ([facility] st Contact Info) Description 07/04/2023 Refill [facility] CHC MED & PEDS [address] [place], [place] [phone] Viry Merino MD [address] [place] [address] Social History Tobacco Use Types Packs/Day Years [...] Description 06/27/2025 2:30 PM EDT Office Visit [facility] MED & PEDS [address] [place] [address] Viry Merino MD [address] [place] [address] documented as of this encounter Visit Diagnoses Not on filedocumented in this encounter Additional Health Concerns Assessment Noted Time PHQ-9 Depression Total Score: 1 12/24/19 23 10:32 AM EDT documented as of this encounter Care Teams Hr Advisor Relationship Specialty Start Date End Date Viry Merino MD [address] [place] [address] PCP - General Internal Medicine 09/29/18 documented as of this encounter
--- OUTSIDE RECORDS SUMMARY | 2025-06-07 12:34 | XMS_ITS | Encounter Summary ---
Author Organization [employer] Address 75 [facility] 7 [place] [address] Care Team Providers Care Music Video Director Name Role Phone Viry Merino MD Primary Care Provider [phone]- [phone] Encounter Details Date Type Department Care Team ([facility] Contact Info) Description 04/02/2023 Orders Only [facility] MEDICINE [address] [place] [address] Gracie Munguia LPN Social History Tobacco Use [...] Description 06/27/2025 2:30 PM EDT Office Visit [facility] CHC MED & PEDS 505 [place], [place] [phone] Viry Merino MD 505 [place], [place] [phone] documented as of this encounter Visit Diagnoses Not on filedocumented in this encounter Additional Health Concerns Assessment Noted Time PHQ-9 Depression Total Score: 1 12/24/19 23 10:32 AM EDT documented as of this encounter Care Teams Music Video Director Relationship Specialty Start Date End Date Viry Merino MD [address] [place] [address] PCP - General Internal Medicine 09/29/18 documented as of this encounter
--- OUTSIDE RECORDS SUMMARY | 2025-06-07 12:34 | XMS_ITS | Encounter Summary ---
Author Organization [employer] Address [address] [facility] 7 [place] [address] Care Team Providers Care Gate Manager Name Role Phone Viry Merino MD Primary Care Provider [phone] Reason for Visit * Reason Comments Med Refill Encounter Details Date Type Department Care Team ([facility] st Contact Info) Description 02/26/2024 Refill [facility] CHC MED & PEDS [address] [place], [place] [phone] Viry Merino MD 505 [place] [address] Social History Tobacco Use Types Packs/Day Years [...] Description 06/27/2025 2:30 PM EDT Office Visit [facility] MED & PEDS [address] [place] [address] Viry Merino MD 505 [place] [address] documented as of this encounter Visit Diagnoses Not on filedocumented in this encounter Additional Health Concerns Assessment Noted Time PHQ-9 Depression Total Score: 1 12/24/19 23 10:32 AM EDT documented as of this encounter Care Teams Gate Manager Relationship Specialty Start Date End Date Viry Merino MD 505 [place] [address] PCP - General Internal Medicine 09/29/18 documented as of this encounter
--- OUTSIDE RECORDS SUMMARY | 2025-06-07 12:34 | XMS_ITS | Encounter Summary ---
Author Organization [employer] Address 75 [facility] 7t [place] [address] Care Team Providers Care Machine Installer Name Role Phone Viry [place] MD Primary Care Provider [phone] Reason for Visit * Reason Comments Med Refill Encounter Details Date Type Department Care Team ([facility] st Contact Info) Description 08/30/2024 Refill [facility] CHC MED & PEDS 505 [place], [place] [phone] Prabha Allison MD 505 [place] [address] Social History Tobacco Use Types Packs/Day Years [...] 2:30 PM EDT Office Visit [facility] MED & PEDS 505 [place] [address] Viry [place] MD [address] [place] [address] documented as of this encounter Visit Diagnoses Not on filedocumented in this encounter Additional Health Concerns Assessment Noted Time PHQ-9 Depression Total Score: 0 04/06/20 24 2:14 PM EDT documented as of this encounter Care Teams Machine Installer Relationship Specialty Start Date End Date Viry [place] MD [address] [place] [address] PCP - General Internal Medicine 09/29/18 documented as of this encounter
--- OUTSIDE RECORDS SUMMARY | 2025-06-07 12:34 | XMS_ITS | Encounter Summary ---
Author Organization [employer] Address 75 [facility] 7 [place] [address] Care Team Providers Care Airplane Coverer Name Role Phone Viry [place]ino MD Primary Care Provider [phone] Reason for Visit * Reason Comments Med Refill Encounter Details Date Type Department Care Team ([facility] st Contact Info) Description 03/25/2024 Refill [facility] CHC MED & PEDS 505 [place], [place] [phone] Viry Merino MD 505 [place] [address] Seasonal allergic rhinitis due to other allergic [...] t he electric, gas, oil or water Assured [employer] threatened to shut off services in your [...] 2:30 PM EDT Office Visit [facility] MED & PEDS [address] [place] [address] Viry Merino MD [address] [place] [address] documented as of this encounter Visit Diagnoses Diagnosis Seasonal allergic rhinitis due to other allergic trigger documented in this encounter Additional Health Concerns Assessment Noted Time PHQ-9 Depression Total Score: 1 12/24/19 23 10:32 AM EDT documented as of this encounter Care Teams Airplane Coverer Relationship Specialty Start Date End Date Viry [place] MD 505 [place] [address] PCP - General Internal Medicine 09/29/18 documented as of this encounter
--- OUTSIDE RECORDS SUMMARY | 2025-06-07 12:34 | XMS_ITS | Clinical Summary ---
Author Organization [facility] Address [address] [place] [address] Care Team Providers Care Drip Pumper Name Role Phone Unknown Primary Care Provider [...] Zoster (Shingles) Vaccine (1 of 2) 2010 RSV Vaccine 60 years and old er and Patients (1 - Risk 60-74 years 1-dose series) 2020 Influenza Vaccine 04/29/2025 COVID-19 Vaccine (1 - 2023-2 5 season) 2025 Hepatitis B Vaccines Aged Out No long er eligible based on patient's age to complete this topic Insurance [facility] COMMERCIAL MEDICAID OUT OF STATE [facility] Care Teams Drip Pumper Relationship Specialty Start Date End Date Unknown Unknow Provider Address PCP - General 04/12/18
--- OUTSIDE RECORDS SUMMARY | 2025-06-07 12:34 | XMS_ITS | Clinical Summary ---
Author Organization [employer] Address [address] [facility] [address] [place] [address] Care Team Providers Care Smooth Plater Name Role Phone Viry Merino MD Primary Care Provider [phone] Allergies No known active allergies Medications Aspirin Low Dose 81 MG EC tablet TAKE 1 TABLET BY MOUTH EVERY DAY 01/01/20 23 Active fluticasone (Flonase) 50 MCG/ACT nasal sprayIndications: Seasonal allergic rhinitis due to other allergic trigger SHAKE LIQUID AND USE 1 TO 2 SPRAYS IN EACH NOSTRIL EVERY DAY NEEDED 64 g 11 01/14/20 24 Active carbamide peroxide (Debrox) 6.5 % otic solutionIndicatio ns:Bilateral impacted cerumen Apply 5 drop into right ear once a day 15 mL 01/14/20 24 Active azelastine (Astelin) 0.1 % nasal sprayIndications: Non-seasonal allergic rhinitis due to other allergic trigger Administer 1 spray into each nostril 2 times daily. Use in each nostril as directed 30 mL 12 04/06/20 24 Active diphenhydrAMINE (BENADryl) 25 MG tabletIndications :Seasonal allergic rhinitis due to other allergic trigger Take 1 tablet (25 mg) by mouth every 6 (six) hours if needed for itching. 30 tablet 04/06/20 24 Active methocarbamol (Robaxin) 750 MG tabletIndications :Muscle spasm,Back muscle spasm Take 1 tablet (750 mg) by mouth 4 times daily for 10 days. 40 tablet 04/06/20 24 Active Magnesium 400 MG capsule Take 400 mg by mouth at bedtime. 90 capsule 1 05/03/20 24 Active Allergy Relief 180 MG tabletIndications :Non-seasonal allergic rhinitis due to other allergic trigger TAKE 1 TABLET(180 MG) BY MOUTH EACH DAY NEEDED FOR ALLERGIES 30 tablet 3 06/24/20 24 Active fexofenadine (Melita) 180 MG tablet Take 1 tablet (180 mg) by mouth if needed each day (Allergies). 30 tablet 11 08/10/20 24 2024 Active hydrOXYzine pamoate (Vistaril) 25 MG capsuleIndication s:Pruritus Take 1 capsule (25 mg) by mouth if needed at bedtime for itching. 30 capsule 11 08/10/20 24 2024 Active omeprazole (PriLOSEC) [address] capsuleIndication s:Gastroesophagea l reflux disease without esophagitis TAKE 1 CAPSULE(20 MG) BY MOUTH BEFORE BREAKFAST 90 capsule 3 09/16/20 24 Active amLODIPine (Norvasc) 2.5 MG tablet TAKE 1 TABLET BY MOUTH EVERY DAY 90 tablet 3 09/16/20 24 Active simvastatin (Zocor) 40 MG tabletIndications :Other hyperlipidemia TAKE 1 TABLET(40 MG) BY MOUTH AT BEDTIME 90 tablet 3 09/16/20 24 Active Aspirin Low Dose 81 MG EC tablet TAKE 1 TABLET BY MOUTH EVERY DAY 30 tablet 11 12/21/19 25 Active triamcinolone (Kenalog) 0.1 % creamIndications: Rash and nonspecific skin eruption,Polymorp hous light eruption Apply topically if needed in the morning and at bedtime (pain and swelling). 30 g 03/01/20 25 Active cetirizine (ZyrTEC) 10 MG tabletIndications :Pruritus,Seasona l allergic rhinitis due to other allergic trigger Take 1 tablet (10 mg) by mouth Once per day. 30 tablet 03/25/20 25 2025 Active triamcinolone (Kenalog) 0.1 % creamIndications: Pruritus Apply topically 2 times daily. 80 g 03/25/20 25 Active gabapentin (Neurontin) 300 MG capsule TAKE 1 CAPSULE BY MOUTH THREE TIMES DAILY 90 capsule 2 04/20/20 25 Active lisinopril-hydroC HLOROthiazide 10-12.5 MG tablet TAKE 1 TABLET BY MOUTH EVERY DAY 30 tablet 11 05/18/20 25 Active lisinopril-hydroC HLOROthiazide 10-12.5 MG tablet TAKE 1 TABLET BY MOUTH EVERY DAY 03/02/20 23 2024 Discontinued lisinopril-hydroC HLOROthiazide 10-12.5 MG tablet TAKE 1 TABLET BY MOUTH EVERY DAY 30 tablet 11 05/20/20 24 2024 Discontinued Active Problems Problem Noted Date Diagnosed Date Nummular atopic dermatitis in adult 03/01/2025 Weakness of muscle of right side of [...] an abrasion Case discussed with Dr. Thompson Plastic Surgeon who will be seeing the patient later [...] Encounters Date Type Department Care Team Description 05/18/2025 Refill [facility] [address] [place] [address] Viry Merino MD 04/20/2025 Results Follow-Up [facility] [address] [place] [address] Viry Merino MD Hepatitis B Surface Antibody, Qualitative, Immunoglobulins, Quantitative, IgA, IgG, IgM, Prothrombin Time-INR, Additional followed-up results: 2 04/20/2025 Results Follow-Up [facility] [address] [place] [address] Viry Merino MD [id number]-[id number], Quantitative, Actin (Smooth Muscle) Antibody (IgG) 04/19/2025 Refill [facility] [address] [place] [address] Viry Merino MD 04/18/2025 Orders Only [facility] [address] [place] [address] Viry Merino MD 04/14/2025 Results Follow-Up [facility] [address] [place] [address] Kayla Ulloa RN Comprehensive Metabolic Panel, Lipid Panel, Standard 04/14/2025 Orders Only [facility] [address] [place] [address] Viry Merino MD Transaminitis (Primary Dx) 03/25/2025 4:00 PM EDT Office Visit [facility] [address] [place] [address] Viry Merino MD Essential hypertension (Primary Dx); Polymorphous light eruption; Pruritus; Seasonal allergic rhinitis due to other allergic trigger; Transaminitis 03/25/2025 Travel from Last 3 Months Family History Medical [...] Sign Reading Time Taken Comments Blood Pressure 123/75 03/25/2025 4:08 PM EDT Pulse 67 03/25/2025 4:08 PM EDT Temperature 36.8 C (98.3 F) 03/25/2025 4:08 PM EDT Respiratory Rate 20 03/25/2025 4:08 PM EDT Oxygen Saturation 98% 03/25/2025 4:08 PM EDT Inhaled Oxygen Concentration - - Weight 99.3 kg (219 lb) 03/25/2025 4:08 PM EDT Height 167.6 cm (5' 6 ) 03/25/2025 4:08 PM EDT Body Mass Index 35.35 03/25/2025 4:08 PM EDT Plan of Treatment Upcoming Encounters Date Type Department Care Team (Late st Contact Info) Description 06/27/2025 2:30 PM EDT Office Visit [facility] [address] [place] [address] Viry Merino MD [address] [place] [address] Health Maintenance Due Date Last Done Comments CT Colonography 1960 FIT DNA/Cologuard 1960 FIT 1960 FOBT 1960 Sigmoidoscopy 1960 Disability Screening 1960 Pneumococcal Vaccine: 50+ Years (1 of 1 - PCV) 2010 Depression Screening 04/06/2025 04/06/2024, 04/06/20 SDOH Screening 04/06/2025 04/06/2024 Influenza Vaccine (#1) 2025 , 08/12/2023, 07/15/2022, Additional history exists Alcohol/Substance Use Screening 12/20/2025 12/20/2024 Tobacco Screening 03/25/2026 03/25/2025 DTaP/Tdap/Td Vaccines (2 - Td or Tdap) 12/05/2026 12/05/2016 Colonoscopy 01/06/2029 Colorectal Cancer Screening 01/06/2029 Lipid Panel 04/11/2030 04/11/2025, 06/30, 02/28/2021, Additional history exists HIV Screening Completed 07/18/2022 RSV Patients and Patients Aged 60 years or older Completed 01/01/2024 Hepatitis C Screening Completed 03/12/2024 , 03/03/2024, 07/18/2022 Zoster Vaccines Completed 04/13/2024, 12/03/2023 COVID-19 Vaccine Completed 07/27/2024, , 09/14/2021, Additional history exists HIB Vaccines Aged Out [...] Procedure Name Priority Date/Time Associated Diagnosis Comments US ABDOMEN COMPLETE WITH ELASTOGRAPHY Routine 06/07/2025 10:55 AM EDT Transaminitis PROTHROMBIN TIME-INR Routine 04/18/2025 9:11 AM EDT Transaminitis ACTIN (SMOOTH MUSCLE) ANTIBODY (IGG) Routine 04/18/2025 8:11 AM EDT [id number] QN Routine 8:11 AM EDT IRON AND TOTAL IRON BINDING CAPACITY Routine 04/18/2025 8:11 AM EDT Transaminitis FERRITIN Routine 04/18/2025 8:11 AM EDT Transaminitis IMMUNOGLOBULINS, QUANTITATIVE, IGA, IGG, IGM Routine 04/18/2025 8:11 AM EDT Transaminitis HEPATITIS B SURFACE ANTIBODY, QUALITATIVE Routine 04/18/2025 8:11 AM EDT Transaminitis LIPID PANEL, STANDARD Routine 04/11/2025 8:09 AM EDT Transaminitis COMPREHENSIVE METABOLIC PANEL Routine 04/11/2025 8:09 AM EDT Transaminitis HEPATITIS PANEL, GENERAL Routine 03/12/2024 8:34 AM EDT Transaminitis HIV 1/2 ANTIGEN/ANTIBODY, FOURTH GENERATION W/RFL Routine 07/18/2022 9:23 AM EDT from Last 3 Months or Most Recently Relevant to Health Maintenance Results * US Abdomen Comp w elastography (06/07/2025 10:55 AM EDT) Anatomical Region Laterality Modality Abdomen Ultrasound 06/07/2025 10:5 5 AM EDT Narrative 06/07/2025 11:35 AM EDT [place] [address] Ultrasound Report Signed Patient: Ja Rowe MR#: [id number] : 1960 Acct:[id number] Age/Sex: 64 / M ADM Date: 06/07/25 Loc: HO.US Attending Dr: Viry Merino MD Ordering Physician: Viry Merino MD Date of Service: 06/07/25 Procedure(s): US abdomen comp w elastography Accession Number(s): [id number] cc: Viry Merino MD Reason for Exam: transaminitis EXAMINATION: US COMPLETE ABDOMEN WITH LIVER ELASTOGRAPHY CLINICAL INFORMATION: Transaminitis COMPARISON: March 10, 2024 ultrasound of the abdomen TECHNIQUE: Real-time imaging of the abdominal viscera. Noninvasive ultrasound liver fibrosis assessment is performed using Deyanira ElastPQ point quantification shear wave elastography (pSWE) with a C5-2 MHz transducer. Multiple elastography samples are obtained. FINDINGS: PANCREAS: The visualized pancreatic head and body are normal in appearance. The remainder of the pancreas is obscured from visualization by the overlying bowel gas. ABDOMINAL AORTA: No aortic aneurysm is seen. INFERIOR VENA CAVA: Visualized portions are normal. LIVER: The liver appears hyperechogenic. Again noted is a punctate hyperechogenic focus with posterior acoustic shadowing in the right lobe measuring up to 5 mm diameter likely representing calcified granuloma. The right lobe measures 16 cm in length. The left lobe measures 12 cm in length. Main portal vein is patent with a normal direction of flow. There is continuous venous waveform. Shear wave liver elastography median stiffness is 1.7 m/s (reference: normal median stiffness is 1.3 m/s or less). IQR/median stiffness to assess sampling precision is 0.07 (reference: good quality data set is IQR/median stiffness of 0.15 or less). GALLBLADDER: The gallbladder is physiologically distended without evidence of stones, sludge, polyps, wall thickening or pericholecystic fluid. COMMON BILE DUCT: Normal in caliber measuring 0.5 cm in diameter. RIGHT KIDNEY: No hydronephrosis. No renal calculi or focal parenchymal lesions. Kidney is mildly echogenic. The kidney measures 12 cm in maximum dimension. LEFT KIDNEY: No hydronephrosis. No renal calculi or focal parenchymal lesions. The kidney is mildly echogenic. The kidney measures 13 cm in maximum dimension. SPLEEN: Unremarkable. The spleen measures 11.6 cm in maximum dimension. FREE FLUID: None seen. US/US abdomen comp w elastography IMPRESSION: 1. The liver is echogenic which can be related to hepatic steatosis or hepatic parenchymal disease. 2. Liver elastography: Measurements are suggestive of compensated advanced chroniic liver disease but need further test for confirmation. The kidneys appear hyperechoic which raises question of underlying medical renal disease. REFERENCE: Society of Radiologists in Ultrasound Liver Stiffness Thresholds (2020): LIVER STIFFNESS THRESHOLDS: *Liver Stiffness equal or less than 1.3 m/s: High probability of being normal. *Liver Stiffness less than 1.7 m/s: In the absence of other known clinical signs, rules out compensated advanced chronic liver disease. *Liver Stiffness 1.7-2.1 m/s: Suggestive of compensated advanced chronic liver disease but need further test for confirmation. *Liver Stiffness over 2.1 m/s: Rules in compensated advanced chronic liver disease. *Liver Stiffness over 2.4 m/s: Suggestive of clinically significant portal hypertension. QUALITY OF DATA SET: *IQR/Median value equal or less than 0.15 implies a quality data set. *IQR/Median value over 0.15 implies a poor quality data set. SIGNIFICANT CHANGE FROM PRIOR EXAM: Significant change if liver stiffness measurement is 10% or greater from prior exam. OTHER CONSIDERATIONS: The stage of liver fibrosis may be overestimated in the setting of acute hepatitis, liver inflammation, elevated liver function tests, hepatic vascular congestion, obstructive cholestasis, non-fasting state, and infiltrative diseases such as amyloidosis and lymphoma. In some patients with NAFLD, the liver stiffness thresholds for compensated advanced chronic liver disease may be lower. In causes other than viral hepatitis and NAFLD, liver stiffness thresholds are not well established. Electronically signed by: Tanner Benitez MD 06/07/2025 11:32 AM EDT RP Dictated By: Tanner Benitez MD Signed By: <Electronically signed by Tanner Benitez MD in OV> 06/07/25 1132 DD/ 1055 TD/TT: 06/07/25 1110 Geology Professor: Procedure Note Donotuseinterpreter, Image - 06/07/2025 [place] [address] Ultrasound Report Signed Patient: Ja Rowe#: [id number] : 1960Acct:[id number] Age/Sex: 64 / MADM Date: 06/07/25 Loc: HO.US Attending Dr: Viry Merino MD Ordering Physician: Viry Merino MD Date of Service: 06/07/25 Procedure(s): US abdomen comp w elastography Accession Number(s): [id number] cc: Viry Merino MD Reason for Exam: transaminitis EXAMINATION: US COMPLETE ABDOMEN WITH LIVER ELASTOGRAPHY CLINICAL INFORMATION: Transaminitis COMPARISON: March 10, 2024 ultrasound of the abdomen TECHNIQUE: Real-time imaging of the abdominal viscera. Noninvasive ultrasound liver fibrosis assessment is performed using Deyanira ElastPQ point quantification shear wave elastography (pSWE) with a C5-2 MHz transducer. Multiple elastography samples are obtained. FINDINGS: PANCREAS: The visualized pancreatic head and body are normal in appearance. The remainder of the pancreas is obscured from visualization by the overlying bowel gas. ABDOMINAL AORTA: No aortic aneurysm is seen. INFERIOR VENA CAVA: Visualized portions are normal. LIVER: The liver appears hyperechogenic. Again noted is a punctate hyperechogenic focus with posterior acoustic shadowing in the right lobe measuring up to 5 mm diameter likely representing calcified granuloma. The right lobe measures 16 cm in length. The left lobe measures 12 cm in length. Main portal vein is patent with a normal direction of flow. There is continuous venous waveform. Shear wave liver elastography median stiffness is 1.7 m/s (reference: normal median stiffness is 1.3 m/s or less). IQR/median stiffness to assess sampling precision is 0.07 (reference: good quality data set is IQR/median stiffness of 0.15 or less). GALLBLADDER: The gallbladder is physiologically distended without evidence of stones, sludge, polyps, wall thickening or pericholecystic fluid. COMMON BILE DUCT: Normal in caliber measuring 0.5 cm in diameter. RIGHT KIDNEY: No hydronephrosis. No renal calculi or focal parenchymal lesions. Kidney is mildly echogenic. The kidney measures 12 cm in maximum dimension. LEFT KIDNEY: No hydronephrosis. No renal calculi or focal parenchymal lesions. The kidney is mildly echogenic. The kidney measures 13 cm in maximum dimension. SPLEEN: Unremarkable. The spleen measures 11.6 cm in maximum dimension. FREE FLUID: None seen. US/US abdomen comp w elastography IMPRESSION: 1. The liver is echogenic which can be related to hepatic steatosis or hepatic parenchymal disease. 2. Liver elastography: Measurements are suggestive of compensated advanced chroniic liver disease but need further test for confirmation. The kidneys appear hyperechoic which raises question of underlying medical renal disease. REFERENCE: Society of Radiologists in Ultrasound Liver Stiffness Thresholds (2020): LIVER STIFFNESS THRESHOLDS: *Liver Stiffness equal or less than 1.3 m/s: High probability of being normal. *Liver Stiffness less than 1.7 m/s: In the absence of other known clinical signs, rules out compensated advanced chronic liver disease. *Liver Stiffness 1.7-2.1 m/s: Suggestive of compensated advanced chronic liver disease but need further test for confirmation. *Liver Stiffness over 2.1 m/s: Rules in compensated advanced chronic liver disease. *Liver Stiffness over 2.4 m/s: Suggestive of clinically significant portal hypertension. QUALITY OF DATA SET: *IQR/Median value equal or less than 0.15 implies a quality data set. *IQR/Median value over 0.15 implies a poor quality data set. SIGNIFICANT CHANGE FROM PRIOR EXAM: Significant change if liver stiffness measurement is 10% or greater from prior exam. OTHER CONSIDERATIONS: The stage of liver fibrosis may be overestimated in the setting of acute hepatitis, liver inflammation, elevated liver function tests, hepatic vascular congestion, obstructive cholestasis, non-fasting state, and infiltrative diseases such as amyloidosis and lymphoma. In some patients with NAFLD, the liver stiffness thresholds for compensated advanced chronic liver disease may be lower. In causes other than viral hepatitis and NAFLD, liver stiffness thresholds are not well established. Electronically signed by: Tanner Benitez MD 06/07/2025 11:32 AM EDT RP Dictated By: Tanner Benitez MD Signed By: <Electronically signed by Tanner Benitez MD in OV> 06/07/25 1132 DD/ 1055 TD/TT: 06/07/25 1110 Geology Professor: Viry Merino MD [facility] [place] PROCEDURES Edited Re sult - Final * Prothrombin Time-INR (04/18/2025 9:11 AM EDT) Prothrombin Time 11.5 10.9 - 12.4 SEC [facility] INTERNATIONAL NORM RATIO 1.0 0.9 - 1.1 [facility] Comment:INTERNATIONAL NORMAL IZED RATIO (INR) REFERENCE RANGES Reference RangeFor patients not on anticoagulant therapy: 0.9 - 1.1INR ranges for oral anticoagulanttherapy:For prevention and treatment of venous thrombosis and pulmonary embolism: 2.0 - 3.0For acute myocardial infarction with aspirin therapy: 2.0 - 3.0For acute myocardial infarction without aspirin therapy: 3.0 - 4.0For patients with mechanical prosthetic heart valves: 2.5 - 3.5 Blood Venous blood specimen / Unknown 04/18/2025 9:11 AM EDT 04/18/2025 2:03 PM EDT Viry Merino MD LAB BLOOD ORDERABLES Final Result [facility] [address] [place] [phone] * Iron And Total Iron Binding Capacity (04/18/2025 8:11 AM EDT) Iron 82 45 - 160 mcg/dL [facility] Total Iron Binding Capacity 302 228 - 428 mcg/dL [facility] Percent Iron Saturation 27 15 - 50 % [facility] Unsaturated Iron Binding 220 ug/dL [facility] Blood Venous blood specimen / Unknown 04/18/2025 8:11 AM EDT 04/18/2025 2:03 PM EDT us Viry Merino MD LAB BLOOD ORDERABLES Final Result Performing Organization Address [facility] Co de Phone Number [facility] [address] [place] [phone] * Actin (Smooth Muscle) Antibody (IgG) (04/18/2025 8:11 AM EDT) Smooth Muscle Antibody <20 <20 U [facility] Comment:Reference Range: <20 U: Negative>or=20 U: PositiveAntibodies recognizing actin are the main componentof smooth muscle antibodies associated with auto- immune liver disease. Actin antibodies are found inapproximately 75% of patients with autoimmunehepatitis (AIH) type 1, approximately 65% of patientswith autoimmune cholangitis, approximately 30% ofpatients with primary biliary cirrhosis andapproximately 2% of healthy controls. High values areclosely correlated with AIH type 1.THIS TEST WAS PERFORMED AT:[facility] [place] [address]EAFMEMD W. MASON,MD,PHD 04/18/2025 8:11 AM EDT 04/18/2025 2:03 PM EDT us Viry Merino MD LAB BLOOD ORDERABLES Final Result Performing Organization Address [facility] Co de Phone Number [facility] [address] [place] [phone] * Xxhex-4-Bbzusrpehwo, Quantitative (04/18/2025 8:11 AM EDT) Rlqpc-7-Cpetaqhq sin QN 124 83 - 199 mg/dL [facility] Comment:THIS TEST WAS PERFOR MED AT:[facility] [address] [id number] GUO MD 04/18/2025 8:11 AM EDT 04/18/2025 2:03 PM EDT us Viry Merino MD LAB BLOOD ORDERABLES Final Result Performing Organization Address [facility] de Phone Number [facility] [address] [place] [phone] * Hepatitis B Surface Antibody, Qualitative (04/18/2025 8:11 AM EDT) Pathologist [facility] ~Hepatitis B Surface Antibody NONREACTIVE Nonreactive [facility] Comment:Nonreactive: < 8.00 mIU/mL Blood Venous blood specimen / Unknown 04/18/2025 8:11 AM EDT 04/18/2025 2:03 PM EDT us Viry Merino MD LAB BLOOD ORDERABLES Final Result Performing Organization Address [facility] [address] [place] [phone] * Immunoglobulins, Quantitative, IgA, IgG, IgM (04/18/2025 8:11 AM EDT) Pathologist [facility] IMMUNOGLOBULIN G 1386 600 - 1540 mg/dL [facility] IMMUNOGLOBULIN A 254 70 - 320 mg/dL [facility] Immunoglobulin M 140 50 - 300 mg/dL [facility] Comment:THIS TEST WAS PERFOR MED AT:[facility] [address] [id number] GUO MD Blood Venous blood specimen / Unknown 04/18/2025 8:11 AM EDT 04/18/2025 2:03 PM EDT us Viry Merino MD LAB BLOOD ORDERABLES Final Result Performing Organization Address [facility] Co de Phone Number [facility] [address] [place] [phone] * Ferritin (04/18/2025 8:11 AM EDT) Ferritin 51 20 - 250 ng/mL [facility] Blood Venous blood specimen / Unknown 04/18/2025 8:11 AM EDT 04/18/2025 2:03 PM EDT us Viry Merino MD LAB BLOOD ORDERABLES Final Result Performing Organization Address [facility]/ZIP Co de Phone Number [facility] [address] [place] [phone] * (ABNORMAL) Lipid Panel, Standard (04/11/2025 8:09 AM EDT) Triglycerides 205(H) <150 mg/dL [facility] Comment:Desirable Triglyceri de: less than 150 mg/dLBorderline High Triglyceride 150-199 mg/dLHigh Triglyceride: 200-499 mg/dLVery High Triglyceride: greater than or equal to 5OO mg/dL Cholesterol 150 <200 mg/dL [facility] Comment:Desirable Cholestero l: less than 200 mg/dLBorderline High Cholesterol: 200-239 mg/dLHigh Cholesterol: greater than 239 mg/dL LDL Cholesterol Calculated 74 <100 mg/dL [facility] Comment:Desirable LDL: less than 100 mg/dLNear Optimal/Above Optimal LDL: 110- 129 mg/dLBorderline High LDL: 130-159 mg/dLHigh LDL: 160-189 mg/dLVery High LDL: greater than or equal to 190 mg/dL HDL Cholesterol 35(L) >40 mg/dL [facility] Comment:Desirable HDL: great er than 40 mg/dL Note: This HDL assay may give artificially low results in patients with liver disease. Blood Venous blood specimen / Unknown 04/11/2025 8:09 AM EDT 04/11/2025 3:28 PM EDT us Viry Merino MD LAB BLOOD ORDERABLES Final Result Performing Organization Address City/[facility]/ZIP Co de Phone Number [facility] [address] [place] [phone] * (ABNORMAL) Comprehensive Metabolic Panel (04/11/2025 8:09 AM EDT) Sodium 138 135 - 145 mmol/L [facility] Potassium 4.1 3.3 - 5.1 mmol/L [facility] Chloride 107 96 - 108 mmol/L [facility] Carbon Dioxide 24 22 - 29 mmol/L [facility] Anion Gap 11(L) 12 - 20 [facility] Urea Nitrogen (BUN) 21(H) 9 - 16 mg/dL [facility] Creatinine, Serum 0.87 0.5 - 1.4 mg/dL [facility] Estimated Glomerular Filt Rate >60 [facility] Comment:Chronic Kidney Disea se: Estimated GFR < 60 mL/min/1.07p4Bpttwp Kidney Disease: Estimated GFR < 15 mL/min/1.73m2 Glucose 102 60 - 115 mg/dL [facility] Calcium 9.0 8.4 - 10.2 mg/dL [facility] Bilirubin, Total 0.6 0.0 - 1.0 mg/dL [facility] Aspartate Amino Transferase 48(H) 5 - 37 U/L [facility] Alanine Aminotransferase 37 0 - 40 U/L [facility] Total Protein 7.1 6.5 - 8.0 g/dL [facility] Albumin Level 4.2 3.5 - 5.0 g/dL [facility] Alkaline Phosphatase 75 39 - 117 U/L [facility] Blood Venous blood specimen / Unknown 04/11/2025 8:09 AM EDT 04/11/2025 3:28 PM EDT us Viry Merino MD LAB BLOOD ORDERABLES Final Result [facility] [address] [place] [phone] * Hepatitis A,B,C Profile (03/12/2024 8:34 AM EDT) Hepatitis A IgM Nonreactive Nonreactive [facility] Comment:IgM antibodies to SOTO V not detected; does not exclude earlyacute or recovered HAV infection. ~Hepatitis B Surface Antibody NONREACTIVE Nonreactive [facility] Comment:Nonreactive: < 8.00 mIU/mL Hepatitis B Core Antibody Nonreactive Nonreactive [facility] Hepatitis C Antibody Nonreactive Nonreactive [facility] Comment:Antibodies to HCV no t detected; does not exclude early acuteHCV infection. Hepatitis B Surface Ag Negative Negative [facility] Blood Venous blood specimen / Unknown 03/12/2024 8:34 AM EDT 03/12/2024 2:39 PM EDT us Viry Merino MD LAB BLOOD ORDERABLES Final Result [facility] [address] [place] [phone] * HIV 1/2 ANTIGEN/ANTIBODY,FOURTH GENERATION W/RFL (07/18/2022 9:23 AM EDT) HIV-1/2 ANTIGEN AND ANTIBODIES, 4TH GENERATION W/ REFLEX NON-REACT [facility] NON-REACT [facility] Comment: HIV-1 antigen and HIV-1/HIV-2 antibodies were not detected. There is no laboratory evidence of HIV infection. PLEASE NOTE: This information has been disclosed to you from records whose confidentiality may be protected by state law. If your state requires such protection, then the state law prohibits you from making any further disclosure of the information without the specific written consent of the person to whom it pertains, or as otherwise permitted by law. A general authorization for the release of medical or other information is NOT sufficient for this purpose. For additional information please refer to http://education.FOXFRAME.COM.PLAXD/faq/NAZ253 (This link is being provided for informational/ educational purposes only.) The performance of this assay has not been clinically validated in patients less than 2 years old. 07/18/2022 9:23 AM EDT us Viry Merino MD LAB BLOOD ORDERABLES Final Result [facility] from Last 3 Months or Most Recently Relevant to Health Maintenance Insurance Care Teams Smooth Plater Relationship Specialty Start Date End Date Viry Merino MD [address] [place] [id number] PCP - General Internal Medicine 09/29/18
--- OUTSIDE RECORDS SUMMARY | 2025-06-07 12:34 | XMS_ITS | Encounter Summary ---
Author Organization [email or web address] Address [address] [facility] [address] [place] [address] Care Team Providers Care Insulation And Flooring Assembler Name Role Phone Viry Merino MD Primary Care Provider [phone] Reason for Visit * Reason Onset Date Comments Nurse Triage 03/08/2024 Encounter Details Date Type Department Care Team ([facility] st Contact Info) Description 03/08/[address] [facility] MED & PEDS [address] [place] [address] Viry Merino MD [address] [place] [address] Nurse Triage Social History Tobacco Use Types [...] t he electric, gas, oil or water [employer] threatened to shut off services in your [...] 03/08/2024 4:44 PM EDT Triage call with [employer] [place] [id number] Pt reports rash that is wide spread. Pt reports redness with hive like spots, itchy, not bump or smooth, no blisters. Pt was seen in office 03/01/24 with dx of viral syndrome . Denies difficulty breathing, fever. Home care reviewed Apt with MICHELLE Marx 03/12/24 @ 315pm [facility]. Pt agrees with disposition and home [...] Description 06/27/2025 2:30 PM EDT Office Visit [facility] MED & PEDS [address] [place] [address] Viry Merino MD [address] [place] [address] documented as of this encounter Visit Diagnoses Not on filedocumented in this encounter Additional Health Concerns Assessment Noted Time PHQ-9 Depression Total Score: 1 12/24/19 23 10:32 AM EDT documented as of this encounter Care Teams Insulation And Flooring Assembler Relationship Specialty Start Date End Date Viry Merino MD [address] [place] [address] PCP - General Internal Medicine 09/29/18 documented as of this encounter
--- OUTSIDE RECORDS SUMMARY | 2025-06-07 12:34 | XMS_ITS | Encounter Summary ---
Author Organization [employer] Address 75 [facility] 7 [place] [address] Care Team Providers Care Frame Sample And Pattern Supervisor Name Role Phone Viry Merino MD Primary Care Provider [phone] Reason for Visit * Reason Comments Med Refill Encounter Details Date Type Department Care Team ([facility] st Contact Info) Description 01/02/2024 Refill [facility] MED & PEDS [address] [place], [place] [phone] Viry Merino MD [address] [place] [address] Social History Tobacco Use Types Packs/Day Years [...] 2:30 PM EDT Office Visit [facility] MED & PEDS [address] [place] [address] Viry Merino MD [address] [place] [address] documented as of this encounter Visit Diagnoses Not on filedocumented in this encounter Additional Health Concerns Assessment Noted Time PHQ-9 Depression Total Score: 1 12/24/19 23 10:32 AM EDT documented as of this encounter Care Teams Frame Sample And Pattern Supervisor Relationship Specialty Start Date End Date Viry Merino MD [address] [place] [address] PCP - General Internal Medicine 09/29/18 documented as of this encounter
== END 2025-06-07 10:40 | disposition home or self-care (01) ==
LOC: HO.US 10:39
PROVIDERS: PCP Internal Medicine; Visit Provider Internal Medicine
DX: R74.01 Elevation of levels of liver transaminase levels (principal)
CPT/HCPCS: 76700; 76981

== ENCOUNTER → 2025-06-07 10:43 | Outpatient (BNV) | payer MEDICARE, MEDICAID, SELFPAY | PROVIDERS: PCP Internal Medicine; Visit Provider Radiology Diagnostic Radiology | DX: R93.2 Abnormal findings on diagnostic imaging of liver and biliary tract (principal) | CPT/HCPCS: 76700 ==

== ENCOUNTER 2025-07-12 14:35 | Outpatient (AMB) | payer MEDICARE, MEDICAID, SELFPAY ==
--- NOTE | 2025-07-12 14:45 | HO.NEPHOV ---
Vital Signs 07/12/25 14:47 Height 5 ft 8 in Weight 218 lb BMI 33.1 BP 110/70 Blood Pressure Location Lt brachial Position Sitting Pulse 67 Pulse Source Pulse Oximeter Pulse Oximetry (%) 96 Oxygen Delivery Method Room Air Intake Visit Reasons: ENP: Abnormal finding on diagnostic imaging of kid Baseboard Heating Installer Required: Yes Baseboard Heating Installer Language: Retail Event And Sales Assistant Services: Baseboard Heating Installer Present Baseboard Heating Installer Name: Eros [id number] Information Interpreted: clinical only Accompanied by: Self / Same As Patient Allergies No Known Allergies Allergy (Verified 07/12/25 14:47) HPI Comments Details: I had the pleasure of seeing Ja in consultation. He is known to have hypertension, CVA as well as RAMÍREZ needing CPAP. He had liver elastography and was thought to have medical renal disease and hence this consultation. His blood pressure is currently well controlled on current medication regimen. He has no history of drug use and denied proteinuria or retinopathy. He denies shortness of breath, PND, orthopnea, pedal edema or orthostatic symptoms. He does not take any excessive nonsteroidal anti-inflammatories. He feels well. His renal functions by blood work are normal. He is tolerating ELSY inhibitor. [facility] Medical History (Updated 07/12/25 @ 15:02 by Charles Amato MD) Nummular atopic dermatitis in adult Left leg pain Rash and nonspecific skin eruption Irritation of right eye Tinea pedis of both feet Elevated cholesterol GERD (gastroesophageal reflux disease) HTN (hypertension) Gambian speaking patient Sleep apnea CVA (cerebral vascular accident) Surgical History Hx of colonoscopy Family History Father Myocardial infarction Colon cancer HTN (hypertension) Mother Coronary artery disease HTN (hypertension) Diabetes mellitus Hyperlipidemia Paternal Uncle Liver cancer Colon cancer Paternal Grandmother Myocardial infarction Heart disease Family/Other Diabetes mellitus HTN (hypertension) Son Asthma Bipolar 1 disorder ADHD Social History Alcohol intake: current Alcohol intake frequency: does not drink Patient Tobacco Use Status: Never used Tobacco Review of Systems Const All systems reviewed & are unremarkable except as noted in HPI and below Physical Exam Vital Signs: Last Vital Signs Pulse 67 07/12/25 14:47 BP 110/70 07/12/25 14:47 Pulse Ox 96 07/12/25 14:47 Oxygen Delivery Method Room Air 07/12/25 14:47 BMI result Body Mass Index 33.1 Const General: comfortable and no acute distress Orientation/consciousness: patient oriented x3 HEENT Head: Yes normocephalic Mouth: Normal oral and palatal mucosa present Eyes EOM: EOMs intact bilaterally Neck Neck: Yes supple Resp Auscultation: clear to auscultation bilaterally Cardio Jugular venous distension: no JVD Rate: regular rate Heart sounds: Murmur heart sound present GI Palpation (GI): Soft to palpation Auscultation: normal bowel sounds General: Yes no CVA tenderness Back/Spine/Pelvis Back: no CVA tenderness Skin General skin exam: no rashes or lesions noted Neuro General: patient oriented x3 and moves all extremities Extrem General: Yes no pedal edema Results Reviewed Nephrology Results: Hgb, (14.0-18.0) 14.6 g/dl 05/03/24 WBC, (4.8-10.8) 9.7 X10*3/uL 05/03/24 Plt Count, (160-400) 113 X10*3/uL L 05/03/24 Sodium, (135-145) 138 mmol/L 04/11/25 Potassium, (3.3-5.1) 4.1 mmol/L 04/11/25 Chloride, (96-108) 107 mmol/L 04/11/25 Carbon Dioxide, (22-29) 24 mmol/L 04/11/25 BUN, (9-16) 21 mg/dL H 04/11/25 Creatinine, (0.5-1.4) 0.87 mg/dL 04/11/25 Calcium, (8.4-10.2) 9.0 mg/dL 04/11/25 Assessment & Plan Assessment & Plan (1) Hypertension: Code(s): I10 - Essential (primary) hypertension Category: Medical Qualifiers: Hypertension type: primary hypertension Qualified Code(s): I10 - Essential (primary) hypertension Plan Ja has longstanding hypertension as well as history of CVA. He most likely has underlying vascular disease. He denies any peripheral arterial symptoms. I ordered urine for protein as well as Doppler of his renal arteries. He is tolerating ELSY inhibitor. His blood pressure is currently at goal. His urine output is good. I did not make any medication changes today but shall continue to work him up in more detail based on upcoming data. Answered all questions and follow-up was given. Orders: Orders US renal doppler 1 Month I10 - Essential (primary) hypertension UA and rflx microscopic 2 Months I10 - Essential (primary) hypertension US renal BI 1 Month I10 - Essential (primary) hypertension Coding Level of Care Code New Pt Level 4 (92953) Diagnoses Primary hypertension I10 Hypertension type: primary hypertension
[2025-07-12 14:47] VITALS: BP 110/70; PULSE 67; O2SAT 96; BMI 33.1
--- OUTSIDE RECORDS SUMMARY | 2025-07-12 17:27 | XMS_ITS | Encounter Summary ---
Author Organization [employer] Address 75 [facility] [address] [place] [address] Care Team Providers Care Watch Guard Gate Name Role Phone Viry Merino MD Primary Care Provider [phone] Encounter Details Date Type Department Care Team ([facility] st Contact Info) Description 01/30/2023 Orders Only [facility] MED & PEDS [address] [place] [address] Randa Briscoe LPN Social History Tobacco Use [...] as of this encounter Plan of Treatment Not on file documented as of this encounter Visit Diagnoses Not on filedocumented in this encounter Additional Health Concerns Assessment Noted Time PHQ-9 Depression Total Score: 1 12/24/19 23 10:32 AM EDT documented as of this encounter Care Teams Watch Guard Gate Relationship Specialty Start Date End Date Viry Merino MD [address] [place] [address] PCP - General Internal Medicine 09/29/18 documented as of this encounter
--- OUTSIDE RECORDS SUMMARY | 2025-07-12 17:27 | XMS_ITS | Encounter Summary ---
Author Organization [employer] Address 75 [facility] [address] [place] [address] Care Team Providers Care Health Insurance Sales Agent Name Role Phone Viry Merino MD Primary Care Provider [phone]- [phone] Encounter Details Date Type Department Care Team ([facility] st Contact Info) Description 06/04/2023 Orders Only [facility] MED & PEDS [address] [place] [address] Maru Durbin LPN Social History Tobacco Use [...] documented as of this encounter Care Teams Health Insurance Sales Agent Relationship Specialty Start Date End Date Viry Merino MD [address] [place] [address] PCP - General Internal Medicine 09/29/18 documented as of this encounter
--- OUTSIDE RECORDS SUMMARY | 2025-07-12 17:27 | XMS_ITS | Encounter Summary ---
Author Organization [employer] Address [address] [address] Care Team Providers Care Braider Setter Name Role Phone Viry Merino MD Primary Care Provider [phone]- [phone] Encounter Details Date Type Department Care Team (Late st Contact Info) Description 12/13/2022 Orders Only [facility] [address] [place], [place] [phone] Viry Merino MD [address] [place], [place] [phone] Social History Tobacco Use Types Packs/Day Years [...] on filedocumented in this encounter Care Teams Braider Setter Relationship Specialty Start Date End Date Viry Merino MD [address] [place] [address] PCP - General Internal Medicine 09/29/18 documented as of this encounter
--- OUTSIDE RECORDS SUMMARY | 2025-07-12 17:27 | XMS_ITS | Encounter Summary ---
Author Organization [employer] Address 75 [facility] [address] [place] [address] Care Team Providers Care Novelty Twister Operator Name Role Phone Viry Merino MD Primary Care Provider [phone]- [phone] Encounter Details Date Type Department Care Team (Late st Contact Info) Description 04/02/2023 Orders Only [facility] MED[facility] [address] [place] [address] Gracie Munguia LPN Social History Tobacco Use [...] documented as of this encounter Care Teams Novelty Twister Operator Relationship Specialty Start Date End Date Viry Merino MD [address] [place] [address] PCP - General Internal Medicine 09/29/18 documented as of this encounter
--- OUTSIDE RECORDS SUMMARY | 2025-07-12 17:28 | XMS_ITS | Encounter Summary ---
Author Organization [employer] Address 75 [facility] 7 [place] [address] Care Team Providers Care Metaphysician Name Role Phone Viry Merino MD Primary Care Provider [phone] Reason for Visit * Reason Onset Date Comments Nurse Triage 03/08/2024 Encounter Details Date Type Department Care Team ([facility] st Contact Info) Description 03/08/2024 Telephone [facility] MED & PEDS [address] [place] [address] Viry Merino MD [address] [place] [address] Nurse Triage Social History Tobacco Use Types [...] t he electric, gas, oil or water mention threatened to shut off services in your [...] 03/08/2024 4:44 PM EDT Triage call with [employer] [place] [id number] Pt reports rash that is wide spread. Pt reports redness with hive like spots, itchy, not bump or smooth, no blisters. Pt was seen in office 03/01/24 with dx of viral syndrome . Denies difficulty breathing, fever. Home care reviewed Apt with MICHELLE Marx 03/12/24 @ 315pm [facility]. Pt agrees with disposition and home [...] documented in this encounter Plan of Treatment Not on file documented as of this encounter Visit Diagnoses Not on filedocumented in this encounter Additional Health Concerns Assessment Noted Time PHQ-9 Depression Total Score: 1 12/24/19 23 10:32 AM EDT documented as of this encounter Care Teams Metaphysician Relationship Specialty Start Date End Date Viry Merino MD [address] [place] [address] PCP - General Internal Medicine 09/29/18 documented as of this encounter
--- OUTSIDE RECORDS SUMMARY | 2025-07-12 17:28 | XMS_ITS | Encounter Summary ---
Author Organization [employer] Address [address] [facility] [address], [place] [address] Care Team Providers Care Dental Equipment Installer And Servicer Name Role Phone Viry Merino MD Primary Care Provider [phone] Reason for Referral * Imaging (Routine) - Closed Specialty Diagnoses / Procedures Referred By Ed khoury Referred To Contact Radiology Diagnoses Transaminitis Procedures US Abdomen Complete Viry Merino MD [address] [place] [address] Phone: tel: fax: [address] Phone: tel: fax: Referral ID Status Reason Start Date Expiration Date Visits Re quested Visits Authorized [id number] Closed 03/10/2024 03/10/2025 1 1 Encounter Details Date Type Department Care Team (Late st Contact Info) Description 03/10/2024 Orders Only [facility] MED & PEDS [address] [place] [address] Viry Merino MD [address] [place] [address] Transaminitis (Primary Dx); Elevated blood sugar Social [...] as of this encounter Plan of Treatment Scheduled Orders Name Type Priority Associated Diagnoses [...] AM EDT) Hemoglobin A1c 5.5 <6.0 % [facility] Comment:Hemoglobin A1C Refer ence Range Adults: 4.8 - 6.0 % Non diabetic: < 6.0 % Goal: < 7.0 %Additional Action Suggested: > 8.0 %Note: Hemoglobin A1c results are invalid for patients with abnormal amounts of HbF. Blood transfusions may impact the HbA1c concentration in the patient sample. Estimated Average Glucose 111 mg/dL [facility] Comment:eAG = Estimated ave rage glucose which is %A1C expressed asaverage glucose, using the formula of the [id number] Glucose study (ADAG), Diabetes Care, Vol.31,#8,Apr. 2007 Blood Venous blood specimen / Unknown 03/12/2024 8:34 AM EDT 03/12/2024 2:39 PM EDT us Viry Merino MD LAB BLOOD ORDERABLES Final Result [facility] [address] [place] [phone] [phone] * Basic Metabolic Panel (03/12/2024 8:34 AM EDT) Sodium 137 135 - 145 mmol/L [facility] Potassium 4.7 3.3 - 5.1 mmol/L [facility] Chloride 104 96 - 108 mmol/L [facility] Carbon Dioxide 25 22 - 29 mmol/L [facility] Anion Gap 13 12 - 20 [facility] Urea Nitrogen (BUN) 14 9 - 16 mg/dL [facility] Creatinine, Serum 0.87 0.5 - 1.4 mg/dL [facility] Estimated Glomerular Filt Rate >60 [facility] Comment:NOTE: For -Am erican individuals, multiply the result by 1.210.Chronic Kidney Disease: Estimated GFR < 60 mL/min/1.06r3Blzyeo Kidney Disease: Estimated GFR < 15 mL/min/1.73m2 Glucose 88 60 - 115 mg/dL [facility] Calcium 9.4 8.4 - 10.2 mg/dL [facility] Blood Venous blood specimen / Unknown 03/12/2024 8:34 AM EDT 03/12/2024 2:39 PM EDT us Viry Merino MD LAB BLOOD ORDERABLES Final Result Performing Organization Address [facility] de Phone Number [facility] [address] [place] [phone] * Hepatitis A,B,C Profile (03/12/2024 8:34 AM EDT) Hepatitis A IgM Nonreactive Nonreactive [facility] Comment:IgM antibodies to SOTO V not detected; does not exclude earlyacute or recovered HAV infection. ~Hepatitis B Surface Antibody NONREACTIVE Nonreactive [facility] Comment:Nonreactive: < 8.00 mIU/mL Hepatitis B Core Antibody Nonreactive Nonreactive [facility] Hepatitis C Antibody Nonreactive Nonreactive [facility] Comment:Antibodies to HCV no t detected; does not exclude early acuteHCV infection. Hepatitis B Surface Ag Negative Negative [facility] Blood Venous blood specimen / Unknown 03/12/2024 8:34 AM EDT 03/12/2024 2:39 PM EDT Viry Merino MD LAB BLOOD ORDERABLES Final Result Performing Organization Address [facility] Phone Number [facility] [address] [place] [phone] documented in this encounter Visit Diagnoses Diagnosis Transaminitis- Primary Nonspecific elevation of levels of transaminase or lactic acid dehydrogenase (LDH) Elevated blood sugar Other abnormal glucose documented in this encounter Additional Health Concerns Assessment Noted Time PHQ-9 Depression Total Score: 1 12/24/19 23 10:32 AM EDT documented as of this encounter Care Teams Dental Equipment Installer And Servicer Relationship Specialty Start Date End Date Viry Merino MD [address] [place] [phone] PCP - General Internal Medicine 09/29/18 documented as of this encounter
--- OUTSIDE RECORDS SUMMARY | 2025-07-12 17:28 | XMS_ITS | Encounter Summary ---
Author Organization [employer] Address [address] [facility] 7 [place] [address] Care Team Providers Care Forestry Workers Name Role Phone Viry Merino MD Primary Care Provider [phone] Reason for Visit * Reason Comments Med Refill Encounter Details Date Type Department Care Team ([facility] st Contact Info) Description 07/12/2025 Refill [facility] CH[facility] MED & PEDS [address] [place], [place] [phone] Viry Merino MD [address] [place] [address] Gastroesophageal reflux disease without esophagitis Social History Tobacco Use Types Packs/Day Years Used Date Smoking Tobacco: Never Passive Smoke Exposure: Never Smokeless Tobacco: Never Depression Answer Date Recorded Patient Health Questionnaire-9 Score 2 06/27/2025 Patient Health Questionnaire-9 Score 2 06/27/2025 Last PHQ-9: Questionnaire Data Not on file 0 06/27/2025 Housing Stability Answer Date Recorded What is your housing situation today? I have manolo folres 06/27/[address] you li ve. Do you have problems with any of the following? None of the above 06/27/2025 Food Insecurity Answer Date Recorded Within the past 12 months, y ou worried that your food would run out before you got money to buy more: Never True 06/27/2025 Within the past 12 months,th e food you bought just didn't last and you didn't have enough money to get more: Never True Transportation Answer Date Recorded In the past 12 months, has l ack of transportation kept you from medical appts, meetings, work or from getting things needed for daily living? No 06/27/2025 Utilities Answer Date Recorded In the past 12 months, has t he electric, gas, oil or water company threatened to shut off services in your home? No 06/27/2025 Depression Answer Date Recorded Patient Health Questionnaire-2 Score 0 06/27/2025 Internet Access Answer Date Recorded Internet Access Q1 Yes 06/27/2025 Internet Access Q2 Not on file 06/27/2025 Sex and Gender Information Value Date Recorded Sex Assigned at Male 07/29/2022 10:18 AM EDT Legal Sex Male 10:18 AM EDT Gender Identity Male 07/29/2022 10:18 AM EDT Sexual Orientation Straight 07/29/2022 10 :18 AM EDT documented as of this encounter Plan of Treatment Not on file documented as of this encounter Visit Diagnoses Diagnosis Gastroesophageal reflux disease without esophagitis Esophageal reflux documented in this encounter Additional Health Concerns Assessment Noted Time PHQ-9 Depression Total Score: 2 06/27/20 25 3:21 PM EDT documented as of this encounter Care Teams Forestry Workers Relationship Specialty Start Date End Date Viry Merino MD [address] [place] [phone] PCP - General Internal Medicine 09/29/18 documented as of this encounter
--- OUTSIDE RECORDS SUMMARY | 2025-07-12 17:28 | XMS_ITS | Encounter Summary ---
Author Organization [employer] Address [address] [facility] 7 [place] [address] Care Team Providers Care Roping Tender Name Role Phone Viry Merino MD Primary Care Provider [phone] Reason for Visit * Reason Comments Med Refill Encounter Details Date Type Department Care Team ([facility] st Contact Info) Description 02/26/2024 Refill [facility] MED & PEDS [address] [place], [place] [phone] Viry Merino MD [address] [place] [address] Social History Tobacco Use Types Packs/Day Years [...] documented as of this encounter Care Teams Roping Tender Relationship Specialty Start Date End Date Viry Merino MD [address] [place] [phone] PCP - General Internal Medicine 09/29/18 documented as of this encounter
--- OUTSIDE RECORDS SUMMARY | 2025-07-12 17:28 | XMS_ITS | Clinical Summary ---
Author Organization [facility] [employer] [facility] ity Address [address] [place] [address] Care Team Providers Care Clearing Tub Worker Name Role Phone Unavailable Primary Care Provider Unavailabl e Social History Tobacco Use Types Packs/Day Years Used Date Smoking Tobacco: Never Assessed Sex and Gender Information Value Date Recorded Sex Assigned at Not on file Legal Sex Male 5:38 AM EST Gender Identity Not on file Sexual Orientation Not on file Plan of Treatment Health Maintenance Due Date Last Done Comments Colorectal Cancer Screening: Colonoscopy 1960 DTaP,Tdap,and Td Vaccines (1 - Tdap) 1979 Pneumococcal Vaccine: 50+ Ye ars (1 of 1 - PCV) 2010 Zoster Vaccines (1 of 2) 2010 Cholesterol Screening (Lipid Panel) 09/01/2022 HIV Screening 09/01/2022 Hepatitis C Screening [...]
--- OUTSIDE RECORDS SUMMARY | 2025-07-12 17:28 | XMS_ITS | Clinical Summary ---
Author Organization [employer] Address [address] [facility] 7t [place] [address] Care Team Providers Care Fuel Efficient Automobile Designer Name Role Phone Viry Merino MD Primary Care Provider Allergies No known active allergies Medications Aspirin [...] a day 15 mL 1 4 Active azelastine (Astelin) 0.1 % nasal sprayIndications:N on-seasonal allergic rhinitis due to other allergic trigger Administer 1 spray into each nostril 2 times daily. Use in each nostril as directed 30 mL 12 4 Active diphenhydrAMINE (BENADryl) 25 MG tabletIndications: Seasonal allergic rhinitis due to other allergic trigger Take 1 tablet (25 mg) by mouth every 6 (six) hours if needed for itching. 30 tablet 4 Active methocarbamol (Robaxin) 750 MG tabletIndications: Muscle spasm,Back muscle spasm Take 1 tablet (750 mg) by mouth 4 times daily for 10 days. 40 tablet 4 Active Magnesium 400 MG capsule Take 400 mg by mouth at bedtime. 90 capsule 1 4 Active Allergy Relief 180 MG tabletIndications: Non-seasonal allergic rhinitis due to other allergic trigger TAKE 1 TABLET(180 MG) BY MOUTH EACH DAY NEEDED FOR ALLERGIES 30 tablet 3 4 Active fexofenadine (Melita) 180 MG tablet [...] EVERY DAY 30 tablet 11 5 Active triamcinolone (Kenalog) 0.1 % creamIndications:R trupti and nonspecific skin eruption,Polymorph ous light eruption Apply topically if needed in the morning and at bedtime (pain and swelling). 30 g 5 Active cetirizine (ZyrTEC) 10 MG tabletIndications: Pruritus,Seasonal allergic rhinitis due to other allergic trigger Take 1 tablet (10 mg) by mouth Once per day. 30 tablet 11 5 026 Active triamcinolone (Kenalog) 0.1 % creamIndications:P ruritus Apply topically 2 times daily. 80 g 5 Active gabapentin (Neurontin) 300 MG capsule TAKE 1 CAPSULE BY MOUTH THREE TIMES DAILY 90 capsule 2 5 Active lisinopril-hydroCH LOROthiazide 10-12.5 MG tablet TAKE 1 TABLET BY MOUTH EVERY DAY 30 tablet 11 5 Active Active Problems Problem Noted Date Diagnosed [...] an abrasion Case discussed with Dr. Thompson Peer Specialist who will be seeing the patient later [...] Encounters Date Type Department Care Team Description 07/12/2025 Refill [facility] [address] [place] [address] Viry Merino MD Gastroesophageal reflux disease without esophagitis 06/27/2025 2:30 PM EDT Office Visit [facility] [address] [place] [address] Viry Merino MD Essential hypertension (Primary Dx); Tinea pedis of both feet; Transaminitis; Muscle spasm 06/27/2025 Travel 06/24/2025 Telephone [facility] [address] [place] [address] Viry Merino MD Chart Prep 06/07/2025 Orders Only [facility] [address] [place] [address] [place] [phone] Viry Merino MD Transaminitis (Primary Dx); Abnormal finding on diagnostic imaging of kidney 05/18/2025 Refill [facility] [address] [place] [address] [place] [address] Viry Merino MD 04/20/2025 Results Follow-Up [facility] [address] [place] [address] [place] [address] Viry Merino MD Hepatitis B Surface Antibody, Qualitative, Immunoglobulins, Quantitative, IgA, IgG, IgM, Prothrombin Time-INR, Additional followed-up results: 3 04/20/2025 Results Follow-Up [facility] [address] [place] [address] [place] [phone] Viry Merino MD Tduhp-5-Kjkrswpvytd, Quantitative, Actin (Smooth Muscle) Antibody (IgG) 04/19/2025 Refill [facility] [address] [place] [address] Viry Merino MD 04/18/2025 Orders Only [facility] [address] [place] [address] Viry Merino MD 04/14/2025 Results Follow-Up [facility] [address] [place] [phone] Kayla Ulloa RN Comprehensive Metabolic Panel, Lipid Panel, Standard 04/14/2025 Orders Only [facility] [address] [place] [address] Viry Merino MD Transaminitis (Primary Dx) from Last 3 Months Immunizations Immunization Administration Dates Next Due Influenza Injectable Quadriv alant Preservative Free IIV4 MDCK 08/12/2023 Influenza injectable quadriv alent IIV4 with preservative 08/10/2018 Influenza injectable quadriv alent preservative free 07/15/2022,06/30/2020,07/02/2019,2016 Influenza, IIV3, injectable 09/14/2021 Influenza, Split (incl. celeste fied surface antigen) 08/27/2012 Influenza, seasonal, injecta ble, preservative free 07/27/2024 Influenza, trivalent, adjuvanted 09/14/2021 RSV Adjuvant 01/01/2024 Tdap 12/05/2016 Zoster, Recombinant 04/13/2024,12/03/2023 Family History Medical History Relation Name Comments [...] housing situation today? I have manolo flores 06/27/[address] you li [...] Sign Reading Time Taken Comments Blood Pressure 114/72 06/27/2025 2:25 PM EDT Pulse 54 06/27/2025 2:25 PM EDT Temperature 36.8 C (98.3 F) 03/25/2025 4:08 PM EDT Respiratory Rate 20 06/27/2025 2:25 PM EDT Oxygen Saturation 96% 06/27/2025 2:25 PM EDT Inhaled Oxygen Concentration - - Weight 98.4 kg (217 lb) 06/27/2025 2:25 PM EDT Height 167.6 cm (5' 6 ) 06/27/2025 2:25 PM EDT Body Mass Index 35.02 06/27/2025 2:25 PM EDT Plan of Treatment Health Maintenance Due Date Last Done Comments CT Colonography 1960 FIT DNA/Cologuard 1960 FIT 1960 FOBT 1960 Sigmoidoscopy 1960 Pneumococcal Vaccine: 50+ Years (1 of 1 - PCV) 2010 Influenza Vaccine (#1) 2025 , 08/12/2023, 07/15/2022, Additional history exists Alcohol/Substance Use Screening 12/20/2025 12/20/2024 Depression Screening 06/27/2026 06/27/2025, 06/27/20 25 Disability Screening 06/27/2026 06/27/2025 SDOH Screening 06/27/2026 06/27/2025 Tobacco Screening 06/27/2026 06/27/2025 Colonoscopy 01/06/2029 Colorectal Cancer Screening 01/06/2029 Lipid Panel 04/11/2030 04/11/2025, 06/30, 02/28/2021, Additional history exists DTaP/Tdap/Td Vaccines (3 - Td or Tdap) 04/15/2035 04/15/2025, 12/05/2016 HIV Screening Completed 07/18/2022 RSV Patients and [...] ANTIBODY (IGG) Routine 04/18/2025 8:11 AM EDT [id number] QN Routine 8:11 AM EDT IRON AND [...] AM EDT Narrative 06/07/2025 11:35 AM EDT [place] [address] Ultrasound Report Signed Patient: Ja Rowe MR#: [id number] : 1960 Acct:[id number] Age/Sex: 64 / M ADM Date: 06/07/25 Loc: HO.US Attending Dr: Viry Merino MD Ordering Physician: Viry Merino MD Date of Service: 06/07/25 Procedure(s): US abdomen comp w elastography Accession Number(s): [id number] cc: Viry Merino MD Reason for Exam: [...] 06/07/25 1132 DD/ 1055 TD/TT: 06/07/25 1110 Sawmill Moulder Operator: Procedure Note Donotuseinterpreter, Image - 06/07/2025 [place] [address] Ultrasound Report Signed Patient: Ja Rowe#: [id number] : 1960Acct:[id number] Age/Sex: 64 / MADM Date: 06/07/25 Loc: HO.US Attending Dr: Viry Merino MD Ordering Physician: Viry Merino MD Date of Service: 06/07/25 Procedure(s): US abdomen comp w elastography Accession Number(s): [id number] cc: Viry Merino MD Reason for Exam: [...] Tanner Benitez MD 06/07/2025 11:32 AM EDT Dictated By: Tanner Benitez MD Signed By: <Electronically signed by Tanner Benitez MD in OV> 06/07/25 1132 DD/ 1055 TD/TT: 06/07/25 1110 Sawmill Moulder Operator: us Viry Merino MD [facility] [place]EDURES Edited Re sult - Final * Prothrombin Time-INR (04/18/2025 9:11 AM EDT) Prothrombin Time 11.5 10.9 - 12.4 SEC [facility] INTERNATIONAL NORM RATIO 1.0 0.9 - 1.1 [facility] Comment:INTERNATIONAL NORMAL IZED RATIO [...] 9:11 AM EDT 04/18/2025 2:03 PM EDT us Viry Merino MD LAB BLOOD ORDERABLES Final Result Performing Organization Address City/State/[facility] Co de Phone Number [facility] [address] [place] [address] [phone] * Iron And Total Iron Binding Capacity (04/18/2025 8:11 AM EDT) Iron 82 45 - 160 mcg/dL [facility] Total Iron Binding Capacity 302 228 - 428 mcg/dL [facility] Percent Iron Saturation 27 15 - 50 % [facility] Unsaturated Iron Binding 220 ug/dL [facility] Blood Venous blood specimen / Unknown 04/18/2025 8:11 AM EDT 04/18/2025 2:03 PM EDT us Viry Merino MD LAB BLOOD ORDERABLES Final Result Performing Organization Address [facility] de Phone Number [facility] [address] [place] [address] [phone] * Actin (Smooth Muscle) Antibody (IgG) (04/18/2025 8:11 AM EDT) Smooth Muscle Antibody <20 <20 U [facility] Comment:Reference Range: <20 U: [...] with AIH type 1.THIS TEST WAS PERFORMED AT:[employer]/[id number] [place] [address]SQCRQNYJESSICA NINA MD,PHD 04/18/2025 8:11 AM EDT 04/18/2025 2:03 PM EDT us Viry Merino MD LAB BLOOD ORDERABLES Final Result Performing Organization Address [facility] de Phone Number [facility] [address] [place] [address] [phone] * Ycpak-1-Voepgmwickv, Quantitative (04/18/2025 8:11 AM EDT) Pathologist [facility] Tdneq-0-Idckerum sin QN 124 83 - 199 mg/dL [facility] Comment:THIS TEST WAS PERFOR MED AT:[employer] [address] [id number] GUO MD 04/18/2025 8:11 AM EDT 04/18/2025 2:03 PM EDT Viry Merino MD LAB BLOOD ORDERABLES Final Result Performing Organization Address [facility] Number [facility] [address] [place] [phone] * Hepatitis B Surface Antibody, Qualitative (04/18/2025 8:11 AM EDT) Pathologist [facility] ~Hepatitis B Surface Antibody NONREACTIVE Nonreactive [facility] Comment:Nonreactive: < 8.00 mIU/mL Blood Venous blood specimen / Unknown 04/18/2025 8:11 AM EDT 04/18/2025 2:03 PM EDT Viry Merino MD LAB BLOOD ORDERABLES Final Result Performing Organization Address [facility] de Phone Number [facility] [address] [place] [address] [phone] * Immunoglobulins, Quantitative, IgA, IgG, IgM (04/18/2025 8:11 AM EDT) Pathologist [facility] IMMUNOGLOBULIN G 1386 600 - 1540 mg/dL [facility] IMMUNOGLOBULIN A 254 70 - 320 mg/dL [facility] Immunoglobulin M 140 50 - 300 mg/dL [facility] Comment:THIS TEST WAS PERFOR MED AT:[facility] [address] [phone] GUO MD Blood Venous blood specimen / Unknown 04/18/2025 8:11 AM EDT 04/18/2025 2:03 PM EDT us Viry Merino MD LAB BLOOD ORDERABLES Final Result Performing Organization Address City/[facility]/ZIP Co de Phone Number [facility] [address] [place] [phone] * Ferritin (04/18/2025 8:11 AM EDT) Ferritin 51 20 - 250 ng/mL [facility] Blood Venous blood specimen / Unknown 04/18/2025 8:11 AM EDT 04/18/2025 2:03 PM EDT us Viry Merino MD LAB BLOOD ORDERABLES Final Result Performing Organization Address City/[facility] Co de Phone Number [facility] [address] [place] [phone] * (ABNORMAL) Lipid Panel, Standard (04/11/2025 8:09 AM EDT) Triglycerides 205(H) <150 mg/dL [facility] Comment:Desirable Triglyceri de: less than 150 mg/dLBorderline High Triglyceride 150-199 mg/dLHigh Triglyceride: 200-499 mg/dLVery High Triglyceride: greater than or equal to 5OO mg/dL Cholesterol 150 <200 mg/dL [facility] Comment:Desirable Cholestero l: less than 200 mg/dLBorderline High Cholesterol: 200-239 mg/dLHigh Cholesterol: greater than 239 mg/dL LDL Cholesterol Calculated 74 <100 mg/dL [facility] Comment:Desirable LDL: less than 100 mg/dLNear Optimal/Above Optimal LDL: 110- 129 mg/dLBorderline High LDL: 130-159 mg/dLHigh LDL: 160-189 mg/dLVery High LDL: greater than or equal to 190 mg/dL HDL Cholesterol 35(L) >40 mg/dL [facility] Comment:Desirable HDL: great er than 40 mg/dL Note: This HDL assay may give artificially low results in patients with liver disease. Blood Venous blood specimen / Unknown 04/11/2025 8:09 AM EDT 04/11/2025 3:28 PM EDT us Viry Merino MD LAB BLOOD ORDERABLES Final Result [facility] [address] [place] [address] [phone] * (ABNORMAL) Comprehensive Metabolic Panel (04/11/2025 8:09 AM EDT) Sodium 138 135 - 145 mmol/L [facility] Potassium 4.1 3.3 - 5.1 mmol/L [facility] Chloride 107 96 - 108 mmol/L [facility] Carbon Dioxide 24 22 - 29 mmol/L [facility] Anion Gap 11(L) 12 - 20 [facility] Urea Nitrogen (BUN) 21(H) 9 - 16 mg/dL [facility] Creatinine, Serum 0.87 0.5 - 1.4 mg/dL [facility] Estimated Glomerular Filt Rate >60 [facility] Comment:Chronic Kidney Disea se: Estimated GFR < 60 mL/min/1.14z9Mwboac Kidney Disease: Estimated GFR < 15 mL/min/1.73m2 Glucose 102 60 - 115 mg/dL [facility] Calcium 9.0 8.4 - 10.2 mg/dL [facility] Bilirubin, Total 0.6 0.0 - 1.0 mg/dL [facility] Aspartate Amino Transferase 48(H) 5 - 37 U/L [facility] Alanine Aminotransferase 37 0 - 40 U/L [facility] Total Protein 7.1 6.5 - 8.0 g/dL [facility] Albumin Level 4.2 3.5 - 5.0 g/dL [facility] Alkaline Phosphatase 75 39 - 117 U/L [facility] Blood Venous blood specimen / Unknown 04/11/2025 8:09 AM EDT 04/11/2025 3:28 PM EDT Viry Merino MD LAB BLOOD ORDERABLES Final Result Performing Organization Address [facility] Co de Phone Number [facility] [address] [place] [phone] * Hepatitis A,B,C Profile (03/12/2024 8:34 AM EDT) Hepatitis A IgM Nonreactive Nonreactive [facility] Comment:IgM antibodies to SOTO V not detected; does not exclude earlyacute or recovered HAV infection. ~Hepatitis B Surface Antibody NONREACTIVE Nonreactive [facility] Comment:Nonreactive: < 8.00 mIU/mL Hepatitis B Core Antibody Nonreactive Nonreactive [facility] Hepatitis C Antibody Nonreactive Nonreactive [facility] Comment:Antibodies to HCV no t detected; does not exclude early acuteHCV infection. Hepatitis B Surface Ag Negative Negative [facility] Blood Venous blood specimen / Unknown 03/12/2024 8:34 AM EDT 03/12/2024 2:39 PM EDT Viry Merino MD LAB BLOOD ORDERABLES Final Result Performing Organization Address [facility] Co de Phone Number [facility] [address] [place] [phone] * HIV 1/2 ANTIGEN/ANTIBODY,FOURTH GENERATION W/RFL [...] purpose. For additional information please refer to http://education.[employer]/faq/TDW107 (This link is being provided for informational/ educational purposes only.) The performance of this assay has not been clinically validated in patients less than 2 years old. 07/18/2022 9:23 AM EDT Viry Merino MD LAB BLOOD ORDERABLES Final Result [facility] from Last 3 Months or Most Recently Relevant to Health Maintenance Insurance Care Teams Fuel Efficient Automobile Designer Relationship Specialty Start Date End Date Viry Merino MD [address] [place] [phone] PCP - General Internal Medicine 09/29/18
--- OUTSIDE RECORDS SUMMARY | 2025-07-12 17:28 | XMS_ITS | Encounter Summary ---
Author Organization [employer] Address 75 [facility] 7 [place] [address] Care Team Providers Care Faculty Support Coordinator Name Role Phone Viry Merino MD Primary Care Provider [phone] Reason for Visit * Reason Comments Med Refill Encounter Details Date Type Department Care Team ([facility] st Contact Info) Description 01/02/2024 Refill [facility] [address] [place], [place] [phone] Viry Merino MD [address] [place] [address] Social History Tobacco Use Types Packs/Day Years [...] as of this encounter Care Teams Faculty Support Coordinator Relationship Specialty Start Date End Date Viry Merino MD [address] [place] [phone] PCP - General Internal Medicine 09/29/18 documented as of this encounter
--- OUTSIDE RECORDS SUMMARY | 2025-07-12 17:28 | XMS_ITS | Encounter Summary ---
Author Organization [employer] Address 75 [facility] 7t [place] [address] Care Team Providers Care Furnace Setter Name Role Phone Viry Merino MD Primary Care Provider [phone] Reason for Visit * Reason Comments Med Refill Encounter Details Date Type Department Care Team ([facility] st Contact Info) Description 08/30/2024 Refill [facility] [address] [place], [place] [phone] Prabha Allison MD [address] [place] [address] Social History Tobacco Use Types Packs/Day Years [...] documented as of this encounter Care Teams Furnace Setter Relationship Specialty Start Date End Date Viry Merino MD [address] [place] [phone] PCP - General Internal Medicine 09/29/18 documented as of this encounter
--- OUTSIDE RECORDS SUMMARY | 2025-07-12 17:28 | XMS_ITS | Encounter Summary ---
Author Organization [employer] Address 75 [facility] [address], [place] [address] Care Team Providers Care Metal Reed Tuner Name Role Phone Viry Merino MD Primary Care Provider [phone] Reason for Referral * Consultation (Routine) - Authorized Specialty Diagnoses / Procedures Referred By Ed khoury Referred To Contact Nephrology Diagnoses Abnormal finding on diagnostic imaging of kidney Viry Merino MD [address] [place] [address] Phone: tel: fax: Charles Amato MD [address] [place] [address] Phone: tel: fax: Referral ID Status Reason Start Date Expiration Date Visits Requested Visits Authorized [id number] Authorized Specialty Services Required 06/07/2025 06/07/2026 1 1 * Consultation (Routine) - Authorized Specialty Diagnoses / Procedures Referred By Ed khoury Referred To Contact Gastroenterology Diagnoses Transaminitis Viry Merino MD [address] [place] [address] Phone: tel: fax: Olga Willoughby MD [address] [place] [address] Phone: tel: fax: Referral ID Status Reason Start Date Expiration Date Visits Requested Visits Authorized [id number] Authorized Specialty Services Required 06/07/2025 06/07/2026 1 1 Encounter Details Date Type Department Care Team (Late st Contact Info) Description 06/07/2025 Orders Only [facility] [address] [place] [address] Viry Merino MD [address] [place] [address] Transaminitis (Primary Dx); Abnormal finding on diagnostic imaging of kidney Social History Tobacco Use Types Packs/Day Years [...] t he electric, gas, oil or water [email or web address] threatened to shut off services in your [...] of this encounter Plan of Treatment Scheduled Referrals Name Type Priority Associated Diagnoses Order Schedule Referral to Gastroenterology Outpatient Referral Routine Transaminitis Expected: 06/07/2025 (Approximate), Expires: 06/07/2026 Referral to Nephrology Outpatient Referral Routine Abnormal finding on diagnostic imaging of kidney Expected: 06/07/2025 (Approximate), Expires: 06/07/2026 documented as of this encounter Visit Diagnoses Diagnosis Transaminitis- Primary Nonspecific elevation of levels of transaminase or lactic acid dehydrogenase (LDH) Abnormal finding on diagnostic imaging of kidney documented in this encounter Additional Health Concerns Assessment Noted Time PHQ-9 Depression Total Score: 0 04/06/20 24 2:14 PM EDT documented as of this encounter Care Teams Metal Reed Tuner Relationship Specialty Start Date End Date Viry Merino MD [address] [place] [phone] PCP - General Internal Medicine 09/29/18 documented as of this encounter
--- OUTSIDE RECORDS SUMMARY | 2025-07-12 17:28 | XMS_ITS | Encounter Summary ---
Author Organization [employer] Address 75 [facility] 7 [place] [address] Care Team Providers Care Base Draw Operator Name Role Phone Viry Merino MD Primary Care Provider [phone] Reason for Visit * Reason Comments Med Refill Encounter Details Date Type Department Care Team ([facility] st Contact Info) Description 07/04/2023 Refill [facility] PEDS [address] [place], [place] [phone] Viry Merino MD [address] [place] [address] Social History Tobacco Use Types Packs/Day Years [...] documented as of this encounter Care Teams Base Draw Operator Relationship Specialty Start Date End Date Viry Merino MD [address] [place] [phone] PCP - General Internal Medicine 09/29/18 documented as of this encounter
--- OUTSIDE RECORDS SUMMARY | 2025-07-12 17:28 | XMS_ITS | Encounter Summary ---
Author Organization [employer] Address 75 [facility] 7 [place] [address] Care Team Providers Care Gate Keeper Name Role Phone Viry Merino MD Primary Care Provider [phone] Encounter Details Date Type Department Care Team ([facility] st Contact Info) Description 05/14/2024 Orders Only [facility] [address] [place], [place] [phone] Viry Merino MD [address] [place] [address] Social History Tobacco Use Types Packs/Day Years [...] as of this encounter Care Teams Gate Keeper Relationship Specialty Start Date End Date Viry Merino MD [address] [place] [address] PCP - General Internal Medicine 09/29/18 documented as of this encounter
--- OUTSIDE RECORDS SUMMARY | 2025-07-12 17:28 | XMS_ITS | Encounter Summary ---
Author Organization [employer] Address 75 [facility] 7 [place] [address] Care Team Providers Care Buffing And Sueding Machine Operator Name Role Phone Viry Merino MD Primary Care Provider [phone] Reason for Visit * Reason Comments Med Refill Encounter Details Date Type Department Care Team ([facility] st Contact Info) Description 01/02/2024 Refill [facility]S [address] [place], [place] [phone] Viry Merino MD [address] [place] [address] Social History Tobacco Use Types [...] documented as of this encounter Care Teams Buffing And Sueding Machine Operator Relationship Specialty Start Date End Date Viry Merino MD [address] [place] [phone] PCP - General Internal Medicine 09/29/18 documented as of this encounter
--- OUTSIDE RECORDS SUMMARY | 2025-07-12 17:28 | XMS_ITS | Encounter Summary ---
Author Organization [employer] Address 75 [facility] [address] [place] [address] Care Team Providers Care Leather Toggler Name Role Phone Viry Merino MD Primary Care Provider [phone] Reason for Visit * Reason Onset Date Comments Results 03/08/2024 Encounter Details Date Type Department Care Team ([facility] st Contact Info) Description 03/08/2024 Telephone [facility] MED & PEDS [address] [place] [address] Viry Merino MD [address] [place] [address] Results Social History Tobacco Use Types Packs/Day [...] ABD US yesterday and was informed at [facility] results would be sent to PCP office. Pt was informed that [facility] has been taking about 2-3 weeks for [...] results: labs Date when done: 03/04/24 Facility: [facility] documented in this encounter Plan of Treatment Not on file documented as of this encounter Visit Diagnoses Not on filedocumented in this encounter Additional Health Concerns Assessment Noted Time PHQ-9 Depression Total Score: 1 12/24/19 23 10:32 AM EDT documented as of this encounter Care Teams Leather Toggler Relationship Specialty Start Date End Date Viry Merino MD [address] [place] [address] PCP - General Internal Medicine 09/29/18 documented as of this encounter
--- OUTSIDE RECORDS SUMMARY | 2025-07-12 17:28 | XMS_ITS | Clinical Summary ---
Author Organization [facility] Address [address] [place] [address] Care Team Providers Care Swedish Masseuse Name Role Phone Unknown Primary Care Provider [...] patient's age to complete this topic Insurance [facility] COMMERCIAL MEDICAID OUT OF STATE [facility] Care Teams Swedish Masseuse Relationship Specialty Start Date End Date Unknown Unknow Provider Address PCP - General 04/12/18
--- OUTSIDE RECORDS SUMMARY | 2025-07-12 17:28 | XMS_ITS | Encounter Summary ---
Author Organization [employer] Address 75 [facility] 7 [place] [address] Care Team Providers Care Bank Teller Name Role Phone Viry Merino MD Primary Care Provider [phone] Reason for Visit * Reason Comments Med Refill Encounter Details Date Type Department Care Team ([facility] st Contact Info) Description 03/25/2024 Refill [facility] MED & PEDS [address] [place], [place] [phone] Viry Merino MD [address] [place] [address] Seasonal allergic rhinitis due to other allergic [...] documented as of this encounter Care Teams Bank Teller Relationship Specialty Start Date End Date Viry Merino MD [address] [place] [address] PCP - General Internal Medicine 09/29/18 documented as of this encounter
== END 2025-07-12 15:09 | disposition home or self-care (01) ==
LOC: HO.HKAS 14:36
PROVIDERS: PCP Internal Medicine; Referring Provider Internal Medicine; Visit Provider Internal Medicine Nephrology
DX: I10 Essential (primary) hypertension (principal)
CPT/HCPCS: 99204

== ENCOUNTER → 2025-07-12 14:35 | Outpatient (BNVA) | payer MEDICARE, MEDICAID, SELFPAY | PROVIDERS: PCP Internal Medicine; Referring Provider Internal Medicine; Visit Provider Internal Medicine Nephrology | DX: I10 Essential (primary) hypertension (principal) | CPT/HCPCS: 99202 ==

== ENCOUNTER 2025-09-13 14:05 | Outpatient (AMB) | payer MEDICARE, MEDICAID, SELFPAY ==
--- NOTE | 2025-09-13 14:11 | A.OFFVIS_ITS ---
Vital Signs 09/13/25 14:36 Height 5 ft 8 in Weight 218 lb 4.122 oz BMI 33.2 BP 99/58 L Blood Pressure Location Rt brachial Position Sitting Pulse 70 Intake Visit Reasons: Transaminitis Intake Note: New patient in office today for transaminitis. CC: Patient denies having any GI symptoms or concerns today. Technology Infusion Specialist Required: Yes Technology Infusion Specialist Language: Rwandan Accompanied by: Self / Same As Patient Allergies No Known Allergies Allergy (Verified 09/13/25 15:01) HPI HPI Transaminitis: Details: 65-year-old male seen in the past only for a screening colonoscopy is now here for new evaluation of transaminitis. He is referred by [facility]. PMX RAMÍREZ Hypertension High cholesterol CVA with right hemiparesis Atopic dermatitis nummular GERD * SURGICAL HISTORY Colonoscopy -2011, 2019, 2023 = tubular adenomas repeat in 5 years * ALLERGIES: NKDA * [employer] LABS: Laboratory Tests 03/12/24 04/11/25 04/18/25 08:34 08:09 08:11 Estimated GFR > 60 Ferritin 51 Total Bilirubin 0.6 AST 48 H ALT 37 Alkaline Phosphatase 75 Erubj-5-Zhyrmrpsefs 124 Hepatitis A IgM Ab Nonreactive Hep Bs Antigen Negative Hep Bs Antibody NONREACTIVE Hep B Core Total Ab Nonreactive Hepatitis C Ab (EIA) Nonreactive ULTRASOUND OF THE ABDOMEN WITH ELASTOGRAPHY 06/23/2025 (F-1) FINDINGS: PANCREAS: The visualized pancreatic head and body are normal in appearance. The remainder of the pancreas is obscured from visualization by the overlying bowel gas. ABDOMINAL AORTA: No aortic aneurysm is seen. INFERIOR VENA CAVA: Visualized portions are normal. LIVER: The liver appears hyperechogenic. Again noted is a punctate hyperechogenic focus with posterior acoustic shadowing in the right lobe measuring up to 5 mm diameter likely representing calcified granuloma. The right lobe measures 16 cm in length. The left lobe measures 12 cm in length. Main portal vein is patent with a normal direction of flow. There is continuous venous waveform. Shear wave liver elastography median stiffness is 1.7 m/s (reference: normal median stiffness is 1.3 m/s or less). IQR/median stiffness to assess sampling precision is 0.07 (reference: good quality data set is IQR/median stiffness of 0.15 or less). GALLBLADDER: The gallbladder is physiologically distended without evidence of stones, sludge, polyps, wall thickening or pericholecystic fluid. COMMON BILE DUCT: Normal in caliber measuring 0.5 cm in diameter. RIGHT KIDNEY: No hydronephrosis. No renal calculi or focal parenchymal lesions. Kidney is mildly echogenic. The kidney measures 12 cm in maximum dimension. LEFT KIDNEY: No hydronephrosis. No renal calculi or focal parenchymal lesions. The kidney is mildly echogenic. The kidney measures 13 cm in maximum dimension. SPLEEN: Unremarkable. The spleen measures 11.6 cm in maximum dimension. FREE FLUID: None seen. US/US abdomen comp w elastography IMPRESSION: 1. The liver is echogenic which can be related to hepatic steatosis or hepatic parenchymal disease. 2. Liver elastography: Measurements are suggestive of compensated advanced chroniic liver disease but need further test for confirmation. The kidneys appear hyperechoic which raises question of underlying medical renal disease. TODAY'S VISIT Rwandan lisandra & Honorio [facility] Medical History Nummular atopic dermatitis in adult Left leg pain Rash and nonspecific skin eruption Irritation of right eye Tinea pedis of both feet Elevated cholesterol GERD (gastroesophageal reflux disease) HTN (hypertension) Rwandan speaking patient Sleep apnea CVA (cerebral vascular accident) Surgical History Hx of colonoscopy Family History Father Myocardial infarction Colon cancer HTN (hypertension) Mother Coronary artery disease HTN (hypertension) Diabetes mellitus Hyperlipidemia Paternal Uncle Liver cancer Colon cancer Paternal Grandmother Myocardial infarction Heart disease Family/Other Diabetes mellitus HTN (hypertension) Son Asthma Bipolar 1 disorder ADHD Social History Alcohol intake: current Alcohol intake frequency: does not drink Patient Tobacco Use Status: Never used Tobacco Review of Systems Const Denies fatigue, Denies fever(s), Denies night sweats, Denies poor appetite and Denies weight loss ENT Reports Normal hearing present, Denies dental pain, Denies dysphagia, Denies hearing loss, Denies mouth pain, Denies odynophagia, Denies throat swelling, Denies tongue swelling and Reports other (Dentition adequate) Card Reports no additional complaints Resp Reports no additional complaints GI Details: Denies abdominal pain, Denies melena, Denies bloating, Denies hematochezia, Denies constipation, Denies GI cramping, Denies dysphagia, Denies excessive flatus, Denies early satiety, Reports heartburn, Denies diarrhea, Denies nausea, Denies odynophagia, Denies vomiting and Denies hematemesis Skin/Breast Denies pruritus, Denies lesions, Denies rash and Denies jaundice Neuro Reports Normal hearing present and Denies Abnormal speech present Endo Denies fatigue Aller/Immun Denies throat swelling and Denies tongue swelling Physical Exam Vital Signs: Last Vital Signs Pulse 70 09/13/25 14:36 BP 99/58 L 09/13/25 14:36 BMI result Body Mass Index 33.2 Const General: cooperative, no acute distress, well developed and well groomed Nutritional Appearance: well nourished and obese Orientation/consciousness: oriented to person, oriented to place and oriented to time Limitations: No language barrier HEENT Head: Yes normocephalic and Yes atraumatic Eyes General: appearance normal, both eyes and all related structures Pupils: Equal, round and reactive pupils present Neck Neck: Yes normal visual inspection and Yes no lymphadenopathy Thyroid: Thyroid normal Resp Effort & Inspection: normal respiratory effort and able to speak in complete sentences Auscultation: clear to auscultation bilaterally Cardio Rate: regular rate Rhythm: regular rhythm Heart sounds: Normal, physiologic split S2 sound present Peripheral pulses: radial pulses present and posterior tibial pulses present GI Inspection: No distended, No Abdominal panniculus present and Yes obesity Palpation (GI): Soft to palpation, nontender, no guarding, not rigid and No hepatosplenomegaly present Percussion: Yes normal to percussion Auscultation: normal bowel sounds Rectal Exam - Male: Yes deferred Skin General skin exam: no rashes or lesions noted, turgor normal, skin not dry, no jaundice, No spider nevi and no striae Rashes: no rashes Nails: normal Neuro General: oriented to person, oriented to place and oriented to time Cranial nerves: Yes Equal, round and reactive pupils present and Yes Normal hearing present Speech: No Abnormal speech present Extrem General: Yes normal to inspection, No clubbing, No cyanosis and No edema Psych Appearance: grossly normal and well kempt Mental Status: mental status grossly normal Speech and movement: Normal speech and movement present Affect: normal affect Attitude: cooperative Thought process: Normal thought process present and not confabulating Thought content: Normal thought content present Insight: Fair insight present (Psych) and Limited insight present (Psych) Judgement: Fair judgement present (Psych) and Limited judgement present (Psych) Results Reviewed Results Reviewed: Laboratory Tests 03/12/24 04/11/25 04/18/25 08:34 08:09 08:11 Estimated GFR > 60 Ferritin 51 Total Bilirubin 0.6 AST 48 H ALT 37 Alkaline Phosphatase 75 Kowyb-4-Tncdexpzglu 124 Hepatitis A IgM Ab Nonreactive Hep Bs Antigen Negative Hep Bs Antibody NONREACTIVE Hep B Core Total Ab Nonreactive Hepatitis C Ab (EIA) Nonreactive ULTRASOUND OF THE ABDOMEN WITH ELASTOGRAPHY 06/23/2025 (F-1) FINDINGS: PANCREAS: The visualized pancreatic head and body are normal in appearance. The remainder of the pancreas is obscured from visualization by the overlying bowel gas. ABDOMINAL AORTA: No aortic aneurysm is seen. INFERIOR VENA CAVA: Visualized portions are normal. LIVER: The liver appears hyperechogenic. Again noted is a punctate hyperechogenic focus with posterior acoustic shadowing in the right lobe measuring up to 5 mm diameter likely representing calcified granuloma. The right lobe measures 16 cm in length. The left lobe measures 12 cm in length. Main portal vein is patent with a normal direction of flow. There is continuous venous waveform. Shear wave liver elastography median stiffness is 1.7 m/s (reference: normal median stiffness is 1.3 m/s or less). IQR/median stiffness to assess sampling precision is 0.07 (reference: good quality data set is IQR/median stiffness of 0.15 or less). GALLBLADDER: The gallbladder is physiologically distended without evidence of stones, sludge, polyps, wall thickening or pericholecystic fluid. COMMON BILE DUCT: Normal in caliber measuring 0.5 cm in diameter. RIGHT KIDNEY: No hydronephrosis. No renal calculi or focal parenchymal lesions. Kidney is mildly echogenic. The kidney measures 12 cm in maximum dimension. LEFT KIDNEY: No hydronephrosis. No renal calculi or focal parenchymal lesions. The kidney is mildly echogenic. The kidney measures 13 cm in maximum dimension. SPLEEN: Unremarkable. The spleen measures 11.6 cm in maximum dimension. FREE FLUID: None seen. US/US abdomen comp w elastography IMPRESSION: 1. The liver is echogenic which can be related to hepatic steatosis or hepatic parenchymal disease. 2. Liver elastography: Measurements are suggestive of compensated advanced chroniic liver disease but need further test for confirmation. The kidneys appear hyperechoic which raises question of underlying medical renal disease. Assessment & Plan Assessment & Plan (1) Transaminitis: Code(s): R74.01 - Elevation of levels of liver transaminase levels Category: Medical Plan Rwandan #raysa & Honorio Subjective Patient referred for evaluation of mildly elevated liver enzyme; currently asymptomatic. Denies jaundice (no yellow eyes or skin). Reports prior alcohol use, stopped in 2018 after experiencing multiple strokes attributed to drinking; no alcohol use since. Notes some weight gain historically but weight has been stable over the past year. Normal bowel habits. Denies nausea, vomiting, dysphag ia. Reports intolerance to spicy foods. Denies confusion or memory problems. Expressed anxiety with blood draws. Also reports a transient midline abdominal ?mound? that becomes apparent when sitting up from lying down; present when performing abdominal exercises and with sit-ups. Relevant Past Medical, Social, and Family History - Family history: Uncle with liver disease (reported as liver cancer or cirrhosis); uncle drank alcohol socially. - Alcohol: Former use; quit in 2018 after strokes attributed to alcohol. - Medications: On atorvastatin since approximately 2017; dose reportedly reduced to 20 mg about two months ago due to potential side effects. Objective - Historical labs reviewed: one liver enzyme increased from 25 in 2023 to 48 in March 2025, characterized as a mild elevation. Assessment & Plan Mildly elevated liver enzyme: Mild rise in a single liver enzyme without associated symptoms. Possible medication effect from long-term statin therapy discussed; no indication to stop statin at this time. Will evaluate for other causes. - Order comprehensive blood work to assess for alternative etiologies. - Follow up in approximately 10 weeks to review results. - Labs may be obtained at any time of day; fasting not required. Abdominal wall mounding with sit-ups: Intermittent midline abdominal ?mound? with sit-up motion discussed; explained as a benign phenomenon related to fat between abdominal muscle layers being compressed during sit-up motion. No alarming features. - Reassurance provided; no intervention needed. - Weight reduction may reduce prominence if desired. Care coordination note: Patient has pending nephrology labs and a renal ultrasound scheduled on the ; these are separate from liver evaluation but may be completed on the same day as convenient. Orders: Orders Smooth Muscle Antibody Today R74.01 - Elevation of levels of liver transaminase levels Alpha Fetoprotein Today R74.01 - Elevation of levels of liver transaminase levels Ceruloplasmin Today R74.01 - Elevation of levels of liver transaminase levels HIV Ab/Ag Today R74.01 - Elevation of levels of liver transaminase levels Liver Panel Today R74.01 - Elevation of levels of liver transaminase levels TSH reflex Free T4 Today R74.01 - Elevation of levels of liver transaminase levels SAYRA Reflex Titer and Pattern Today R74.01 - Elevation of levels of liver transaminase levels Liver Fibrosis Pnl Today R74.01 - Elevation of levels of liver transaminase levels Mitochondrial Antibody Today R74.01 - Elevation of levels of liver transaminase levels Phosphatidylethanol, Blood Today R74.01 - Elevation of levels of liver transaminase levels Ferritin Today R74.01 - Elevation of levels of liver transaminase levels Coding Level of Care Code New Pt Level 3 (59075) Diagnoses Transaminitis R74.01
[2025-09-13 14:36] VITALS: BP 99/58; PULSE 70; BMI 33.2
--- OUTSIDE RECORDS SUMMARY | 2025-09-13 18:20 | XMS_ITS | Encounter Summary ---
Author Organization [employer] Address [address] [address] Care Team Providers Care Leaf Conditioner Helper Name Role Phone Viry Merino MD Primary Care Provider [phone] Reason for Referral * Imaging (Routine) - Closed Specialty Diagnoses / Procedures Referred By Ed khoury Referred To Contact Radiology Diagnoses Transaminitis Procedures US Abdomen Complete Viry Merino MD [address] [place] [address] Phone: tel: fax: [address] [phone] Phone: tel: fax: Referral ID Status Reason Start Date Expiration Date Visits Re quested Visits Authorized [id number] Closed 03/10/2024 03/10/2025 1 1 Encounter Details Date Type Department Care Team (Late st Contact Info) Description 03/10/2024 Orders Only [facility] MED & PEDS [address] [place], [place] [phone] Viry Merino MD [address] [place], [place] [phone] Transaminitis (Primary Dx); Elevated blood sugar Social [...] AM EDT) Hemoglobin A1c 5.5 <6.0 % [facility] Comment:Hemoglobin A1C Refer ence Range Adults: 4.8 - 6.0 % Non diabetic: < 6.0 % Goal: < 7.0 %Additional Action Suggested: > 8.0 %Note: Hemoglobin A1c results are invalid for patients with abnormal amounts of HbF. Blood transfusions may impact the HbA1c concentration in the patient sample. Estimated Average Glucose 111 mg/dL [facility] Comment:eAG = Estimated ave rage glucose which is %A1C expressed asaverage glucose, using the formula of the Z8Y-FqpqeciWtppwnw Glucose study (ADAG), Diabetes Care, Vol.31,#8,Apr. 2007 Blood Venous blood specimen / Unknown 03/12/2024 8:34 AM EDT 03/12/2024 2:39 PM EDT us Viry Merino MD LAB BLOOD ORDERABLES Final Result [facility] [address] [place] [phone] * Basic Metabolic Panel (03/12/2024 8:34 AM EDT) Sodium 137 135 - 145 mmol/L [facility] Potassium 4.7 3.3 - 5.1 mmol/L [facility] Chloride 104 96 - 108 mmol/L [facility] Carbon Dioxide 25 22 - 29 mmol/L [facility] Anion Gap 13 12 - 20 [facility] Urea Nitrogen (BUN) 14 9 - 16 mg/dL [facility] Creatinine, Serum 0.87 0.5 - 1.4 mg/dL [facility] Estimated Glomerular Filt Rate >60 [facility] Comment:NOTE: For -Am erican individuals, multiply the result by 1.210.Chronic Kidney Disease: Estimated GFR < 60 mL/min/1.66c1Lqcrur Kidney Disease: Estimated GFR < 15 mL/min/1.73m2 Glucose 88 60 - 115 mg/dL [facility] Calcium 9.4 8.4 - 10.2 mg/dL [facility] Blood Venous blood specimen / Unknown 03/12/2024 8:34 AM EDT 03/12/2024 2:39 PM EDT us Viry Merino MD LAB BLOOD ORDERABLES Final Result Performing Organization Address [facility] Co de Phone Number [facility] [address] [place] [phone] * Hepatitis A,B,C Profile (03/12/2024 8:34 AM EDT) Hepatitis A IgM Nonreactive Nonreactive [facility] Comment:IgM antibodies to SOTO V not detected; does not exclude earlyacute or recovered HAV infection. ~Hepatitis B Surface Antibody NONREACTIVE Nonreactive [facility] Comment:Nonreactive: < 8.00 mIU/mL Hepatitis B Core Antibody Nonreactive Nonreactive [facility] Hepatitis C Antibody Nonreactive Nonreactive [facility] Comment:Antibodies to HCV no t detected; does not exclude early acuteHCV infection. Hepatitis B Surface Ag Negative Negative [facility] Blood Venous blood specimen / Unknown 03/12/2024 8:34 AM EDT 03/12/2024 2:39 PM EDT us Viry Merino MD LAB BLOOD ORDERABLES Final Result Performing Organization Address [facility] de Phone Number [facility] [address] [place] [phone] documented in this encounter Visit Diagnoses Diagnosis Transaminitis- Primary Nonspecific elevation of levels of transaminase or lactic acid dehydrogenase (LDH) Elevated blood sugar Other abnormal glucose documented in this encounter Additional Health Concerns Assessment Noted Time PHQ-9 Depression Total Score: 1 12/24/19 23 10:32 AM EDT documented as of this encounter Care Teams Leaf Conditioner Helper Relationship Specialty Start Date End Date Viry Merino MD [address] [place] [address] PCP - General Internal Medicine 09/29/18 documented as of this encounter
--- OUTSIDE RECORDS SUMMARY | 2025-09-13 18:20 | XMS_ITS | Encounter Summary ---
Author Organization [employer] Address [address] [facility] [address] [address] Care Team Providers Care Chair Maker Name Role Phone Viry Merino MD Primary Care Provider [phone] Reason for Referral * Consultation (Routine) - Closed Specialty Diagnoses / Procedures Referred By Ed khoury Referred To Contact Nephrology Diagnoses Abnormal finding on diagnostic imaging of kidney Viry Merino MD [address] [place] [address] Phone: tel: fax: Charles Amato MD [address] [place] [phone] Phone: tel: fax: Referral ID Status Reason Start Date Expiration Date V isits Requested Visits Authorized [id number] Closed Specialty Services Required 06/07/2025 06/07/2026 1 1 * Consultation (Routine) - Authorized Specialty Diagnoses / Procedures Referred By Ed khoury Referred To Contact Gastroenterology Diagnoses Transaminitis Viry Merino MD [address] [place] [address] Phone: tel: fax: Olga Willoughby MD [address] [place] [address] Phone: tel: fax: Referral ID Status Reason Start Date Expiration Date Visits Requested Visits Authorized [id number] Authorized Specialty Services Required 06/07/2025 06/07/2026 1 1 Encounter Details Date Type Department Care Team (Late st Contact Info) Description 06/07/2025 Orders Only [facility]EDS [address] [place] [address] Viry Merino MD [address] [place] [address] Transaminitis (Primary Dx); Abnormal finding on diagnostic [...] documented as of this encounter Care Teams Chair Maker Relationship Specialty Start Date End Date Viry Merino MD [address] [place] [address] PCP - General Internal Medicine 09/29/18 documented as of this encounter
--- OUTSIDE RECORDS SUMMARY | 2025-09-13 18:20 | XMS_ITS | Encounter Summary ---
Author Organization [email or web address] Address [address] [address] Care Team Providers Care Product Developer Name Role Phone Viry Merino MD Primary Care Provider [phone] Encounter Details Date Type Department Care Team (Late st Contact Info) Description 12/13/2022 Orders Only [facility] [address] [place], [place] [phone] Viry Merino MD [address] [place], [place] [phone] Social History Tobacco Use Types Packs/Day Years [...] on filedocumented in this encounter Care Teams Product Developer Relationship Specialty Start Date End Date Viry Merino MD [address] [place] [address] PCP - General Internal Medicine 09/29/18 documented as of this encounter
--- OUTSIDE RECORDS SUMMARY | 2025-09-13 18:20 | XMS_ITS | Encounter Summary ---
Author Organization [employer] Address 75 [facility] 7 [place] [address] Care Team Providers Care Etl Analyst Developer Name Role Phone Viry Merino MD Primary Care Provider [phone] Reason for Visit * Reason Comments Med Refill Encounter Details Date Type Department Care Team ([facility] st Contact Info) Description 01/02/2024 Refill [facility] MED & PEDS [address] [place], [place] [phone] Viry Merino MD [address] [place] [address] Social History Tobacco Use Types Packs/Day Years [...] documented as of this encounter Care Teams Etl Analyst Developer Relationship Specialty Start Date End Date Viry Merino MD [address] [place] [address] PCP - General Internal Medicine 09/29/18 documented as of this encounter
--- OUTSIDE RECORDS SUMMARY | 2025-09-13 18:20 | XMS_ITS | Encounter Summary ---
Author Organization [employer] Address 75 [facility] 7t [place] [address] Care Team Providers Care Benefits Technician Name Role Phone Viry Merino MD Primary Care Provider [phone] Reason for Visit * Reason Comments Med Refill Encounter Details Date Type Department Care Team ([facility] st Contact Info) Description 08/30/2024 Refill [facility] MED & PEDS [address] [place], [place] [phone] Prabha Allison MD [address] [place] [address] Social History Tobacco Use Types Packs/Day Years [...] documented as of this encounter Care Teams Benefits Technician Relationship Specialty Start Date End Date Viry Merino MD [address] [place] [address] PCP - General Internal Medicine 09/29/18 documented as of this encounter
--- OUTSIDE RECORDS SUMMARY | 2025-09-13 18:20 | XMS_ITS | Encounter Summary ---
Author Organization [employer] Address 75 [facility] 7 [place] [address] Care Team Providers Care Mold Shifter Name Role Phone Viry Merino MD Primary Care Provider [phone] Reason for Visit * Reason Comments Med Refill Encounter Details Date Type Department Care Team ([facility] st Contact Info) Description 07/04/2023 Refill [facility] CH[facility] MED & PEDS [address] [place], [place] [phone] Viry Merino MD [address] [place] [address] Social History Tobacco Use Types Packs/Day Years [...] documented as of this encounter Care Teams Mold Shifter Relationship Specialty Start Date End Date Viry Merino MD [address] [place] [address] PCP - General Internal Medicine 09/29/18 documented as of this encounter
--- OUTSIDE RECORDS SUMMARY | 2025-09-13 18:20 | XMS_ITS | Encounter Summary ---
Author Organization [employer] Address 75 [facility] 7 [place] [address] Care Team Providers Care Senior Reservoir Engineer Name Role Phone Viry Merino MD Primary Care Provider [phone]- [phone] Encounter Details Date Type Department Care Team (Late st Contact Info) Description 04/02/2023 Orders Only [facility] MEDICINE [address] [place] [address] Gracie Munguia LPN Social History Tobacco Use [...] documented as of this encounter Care Teams Senior Reservoir Engineer Relationship Specialty Start Date End Date Viry Merino MD 505 [place] [address] PCP - General Internal Medicine 09/29/18 documented as of this encounter
--- OUTSIDE RECORDS SUMMARY | 2025-09-13 18:20 | XMS_ITS | Clinical Summary ---
Author Organization [employer] [facility] ity Address [address] [place] [address] Care Team Providers Care Coordinator Skill Training Program Name Role Phone Unavailable Primary Care Provider [...] 2) 2010 Cholesterol Screening (Lipid Panel) 09/01/2022 Hepatitis C Screening 09/01/2022 Social Influencers of Health Screening 09/01/2022 Depression Screening 09/29/2024 COVID-19 Vaccine (1 - 2024-2 6 season) 2025 Influenza Vaccine (#1) 2025 07/02/2019 Falls Risk Assessment 2025 RSV Immunization Adult Patie nts (1 - [...]
--- OUTSIDE RECORDS SUMMARY | 2025-09-13 18:20 | XMS_ITS | Encounter Summary ---
Author Organization [employer] Address 75 [facility] 7 [place] [address] Care Team Providers Care Hollow Core Door Frame Assembler Name Role Phone Viry Merino MD Primary Care Provider [phone]- [phone] Reason for Visit * Reason Comments Med Refill Encounter Details Date Type Department Care Team ([facility] st Contact Info) Description 09/06/2025 Refill [facility] CHC MED & PEDS 505 [place], [place] [phone] Viry Merino MD 505 [place] [address] Other hyperlipidemia Social History Tobacco Use Types Packs/Day Years [...] as of this encounter Visit Diagnoses Diagnosis Other hyperlipidemia documented in this encounter Additional Health Concerns Assessment Noted Time PHQ-9 Depression Total Score: 2 06/27/20 25 3:21 PM EDT documented as of this encounter Care Teams Hollow Core Door Frame Assembler Relationship Specialty Start Date End Date Viry Merino MD [address] [place] [address] PCP - General Internal Medicine 09/29/18 documented as of this encounter
--- OUTSIDE RECORDS SUMMARY | 2025-09-13 18:20 | XMS_ITS | Encounter Summary ---
Author Organization [employer] Address 75 [facility] 7 [place] [address] Care Team Providers Care Radio Dispatcher Name Role Phone Viry Merino MD Primary Care Provider [phone] Reason for Visit * Reason Comments Med Refill Encounter Details Date Type Department Care Team ([facility] st Contact Info) Description 03/25/2024 Refill [facility] CHC MED & PEDS [address] [place], [place] [phone] Viry Merino MD 505 [place] [address] Seasonal allergic rhinitis due to other allergic [...] documented as of this encounter Care Teams Radio Dispatcher Relationship Specialty Start Date End Date Viry Merino MD 505 [place] [address] PCP - General Internal Medicine 09/29/18 documented as of this encounter
--- OUTSIDE RECORDS SUMMARY | 2025-09-13 18:20 | XMS_ITS | Encounter Summary ---
Author Organization [employer] Address 75 [facility] 7 [place] [address] Care Team Providers Care Word Processing Machine Operator Name Role Phone Viry Merino MD Primary Care Provider [phone] Reason for Visit * Reason Comments Med Refill Encounter Details Date Type Department Care Team ([facility] st Contact Info) Description 01/02/2024 Refill [facility] CHC MED & PEDS 505 [place], [place] [phone] Viry Merino MD 505 [place] [address] Social History Tobacco Use Types Packs/Day Years [...] documented as of this encounter Care Teams Word Processing Machine Operator Relationship Specialty Start Date End Date Viry Merino MD [address] [place] [address] PCP - General Internal Medicine 09/29/18 documented as of this encounter
--- OUTSIDE RECORDS SUMMARY | 2025-09-13 18:20 | XMS_ITS | Clinical Summary ---
Author Organization [facility] Address [address] [place] [address] Care Team Providers Care Alumni Secretary Name Role Phone Unknown Primary Care Provider [phone] Allergies No known active allergies Social History [...] Health Maintenance Due Date Last Done Comments Advance Care Planning 1960 Hepatitis C Virus Screening 1960 HIV Screening 1973 DTaP/Tdap/Td Vaccines (1 - Tdap) 1979 Colonoscopy 2005 Pneumococcal Vaccines 50+ (1 of 1 - PCV) 2010 RSV Vaccine 50 years and old er and Patients (1 - Risk 50-74 years 1-dose series) 2010 Zoster (Shingles) Vaccine (1 of 2) 2010 Influenza Vaccine 04/29/2025 COVID-19 Vaccine (1 - 2024-2 6 season) 2025 Hepatitis B Vaccines Aged Out No long er eligible based on patient's age to complete this topic Insurance [facility] [employer] [place] [facility] Care Teams Alumni Secretary Relationship Specialty Start Date End Date Unknown Unknow Provider Address PCP - General 04/12/18
--- OUTSIDE RECORDS SUMMARY | 2025-09-13 18:20 | XMS_ITS | Encounter Summary ---
Author Organization [employer] Address 75 [facility] 7 [place] [address] Care Team Providers Care Civil Preparedness Coordinator Name Role Phone Viry Merino MD Primary Care Provider [phone]- [phone] Encounter Details Date Type Department Care Team ([facility] st Contact Info) Description 01/30/2023 Orders Only [facility] CHC MED & PEDS [address] [place] [address] Randa Briscoe LPN Social History Tobacco Use [...] documented as of this encounter Care Teams Civil Preparedness Coordinator Relationship Specialty Start Date End Date Viry Merino MD [address] [place] [address] PCP - General Internal Medicine 09/29/18 documented as of this encounter
--- OUTSIDE RECORDS SUMMARY | 2025-09-13 18:20 | XMS_ITS | Encounter Summary ---
Author Organization [employer] Address 75 [facility] 7 [place] [address] Care Team Providers Care Research Fellow Name Role Phone Viry Merino MD Primary Care Provider [phone] Encounter Details Date Type Department Care Team ([facility] st Contact Info) Description 05/14/2024 Orders Only [facility] CHC MED & PEDS [address] [place], [place] [phone] Viry Merino MD [address] [place] [address] Social History Tobacco Use Types Packs/Day Years [...] as of this encounter Care Teams Research Fellow Relationship Specialty Start Date End Date Viry Merino MD [address] [place] [address] PCP - General Internal Medicine 09/29/18 documented as of this encounter
--- OUTSIDE RECORDS SUMMARY | 2025-09-13 18:20 | XMS_ITS | Encounter Summary ---
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
--- OUTSIDE RECORDS SUMMARY | 2025-09-13 18:20 | XMS_ITS | Clinical Summary ---
Author Organization [employer] Address 75 [facility] 7t [place] [address] Care Team Providers Care E Business Specialist Name Role Phone Viry Merino MD Primary Care Provider [phone]- [phone] Allergies No known active allergies Medications Aspirin Low Dose 81 MG EC tablet TAKE 1 TABLET BY MOUTH EVERY DAY 01/01/20 23 Active fluticasone (Flonase) 50 MCG/ACT nasal sprayIndications:Se asonal allergic rhinitis due to other allergic trigger SHAKE LIQUID AND USE 1 TO 2 SPRAYS IN EACH NOSTRIL EVERY DAY NEEDED 64 g 11 01/14/20 24 Active carbamide peroxide (Debrox) 6.5 % otic solutionIndications :Bilateral impacted cerumen Apply 5 drop into right ear once a day 15 mL 1 01/14/20 24 Active azelastine (Astelin) 0.1 % nasal sprayIndications:No n-seasonal allergic rhinitis due to other allergic trigger Administer 1 spray into each nostril 2 times daily. Use in each nostril as directed 30 mL 12 04/06/20 24 Active diphenhydrAMINE (BENADryl) 25 MG tabletIndications:S easonal allergic rhinitis due to other allergic trigger Take 1 tablet (25 mg) by mouth every 6 (six) hours if needed for itching. 30 tablet 04/06/20 24 Active methocarbamol (Robaxin) 750 MG tabletIndications:M uscle spasm,Back muscle spasm Take 1 tablet (750 mg) by mouth 4 times daily for 10 days. 40 tablet 04/06/20 24 Active Magnesium 400 MG capsule Take 400 mg by mouth at bedtime. 90 capsule 1 05/03/20 24 Active Allergy Relief 180 MG tabletIndications:N on-seasonal allergic rhinitis due to other allergic trigger TAKE 1 TABLET(180 MG) BY MOUTH EACH DAY NEEDED FOR ALLERGIES 30 tablet 3 06/24/20 24 Active fexofenadine (Melita) 180 MG tablet Take 1 tablet (180 mg) by mouth if needed each day (Allergies). 30 tablet 11 08/10/20 24 Active hydrOXYzine pamoate (Vistaril) 25 MG capsuleIndications: Pruritus Take 1 capsule (25 mg) by mouth if needed at bedtime for itching. 30 capsule 08/10/20 24 Active Aspirin Low Dose 81 MG EC tablet TAKE 1 TABLET BY MOUTH EVERY DAY 30 tablet 12/21/19 25 Active triamcinolone (Kenalog) 0.1 % creamIndications:Ra sh and nonspecific skin eruption,Polymorpho us light eruption Apply topically if needed in the morning and at bedtime (pain and swelling). 30 g 03/01/20 25 Active cetirizine (ZyrTEC) 10 MG tabletIndications:P ruritus,Seasonal allergic rhinitis due to other allergic trigger Take 1 tablet (10 mg) by mouth Once per day. 30 tablet 03/25/20 25 026 Active triamcinolone (Kenalog) 0.1 % creamIndications:Pr uritus Apply topically 2 times daily. 80 g 03/25/20 25 Active lisinopril-hydroCHL OROthiazide 10-12.5 MG tablet TAKE 1 TABLET BY MOUTH EVERY DAY 30 tablet 11 05/18/20 25 Active omeprazole (PriLOSEC) [address] capsuleIndications: Gastroesophageal reflux disease without esophagitis TAKE 1 CAPSULE(20 MG) BY MOUTH BEFORE BREAKFAST 90 capsule 3 07/13/20 25 Active amLODIPine (Norvasc) 2.5 MG tablet TAKE 1 TABLET BY MOUTH EVERY DAY 90 tablet 3 07/13/20 25 Active atorvastatin (Lipitor) 20 MG tabletIndications:W eakness of muscle of right side of face due to and not concurrent with cerebrovascular accident (CVA) Take 1 tablet (20 mg) by mouth Once per day. 30 tablet 11 07/15/20 25 026 Active gabapentin (Neurontin) 300 MG capsule TAKE 1 CAPSULE BY MOUTH THREE TIMES DAILY 90 capsule 2 07/18/20 25 Active Active Problems Problem Noted Date Diagnosed [...] an abrasion Case discussed with Dr. 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) 07/12/2025 Refill [facility] MED & PEDS [address] [place] [address] Viry Merino MD Gastroesophageal reflux disease without esophagitis 06/27/2025 2:30 PM EDT Office Visit [facility] MED & PEDS [address] [place] [address] Viry Merino MD Essential hypertension (Primary Dx); Tinea pedis of both feet; Transaminitis; Muscle spasm 06/27/2025 Travel 06/24/2025 Telephone [facility] MED & PEDS [address] [place] [address] Viry Merino MD Chart Prep from Last 3 Months Immunizations Immunization Administration [...] Years (1 of 1 - PCV) 2010 COVID-19 Vaccine (6 - season) 2025 07/27/2024, 08/12/2023, 09/14/2021, Additional history exists Influenza Vaccine (#1) 2025 , 08/12/2023, 07/15/2022, Additional history exists Alcohol/Substance Use Screening 12/20/2025 12/20/2024 Depression Screening 06/27/2026 06/27/2025, 06/27/20 25 SDOH Screening 06/27/2026 06/27/2025 Tobacco Screening 06/27/2026 06/27/2025 Colonoscopy 01/06/2029 Colorectal Cancer Screening 01/06/2029 Lipid Panel 04/11/2030 04/11/2025, 06/30, 02/28/2021, Additional history exists DTaP/Tdap/Td Vaccines (3 - Td or Tdap) 04/15/2035 04/15/2025, 12/05/2016 RSV Patients and Patients Aged 60 years or older Completed 01/01/2024 Hepatitis C Screening Completed 03/12/2024 , 03/03/2024, 07/18/2022 Zoster Vaccines Completed 04/13/2024, 12/03/2023 HIB Vaccines Aged Out No longer eligi [...] Procedure Name Priority Date/Time Associated Diagnosis Comments LIPID PANEL, STANDARD Routine 04/11/2025 8:09 AM EDT Transaminitis HEPATITIS PANEL, GENERAL Routine 03/12/2024 8:34 AM EDT Transaminitis from Last 3 Months or Most Recently Relevant to Health Maintenance Results * (ABNORMAL) Lipid Panel, Standard (04/11/2025 8:09 AM EDT) Triglycerides 205(H) <150 mg/dL [facility] Comment:Desirable Triglyceri de: less than 150 mg/dLBorderline High Triglyceride 150-199 mg/dLHigh Triglyceride: 200-499 mg/dLVery High Triglyceride: greater than or equal to 5OO mg/dL Cholesterol 150 <200 mg/dL [facility] Comment:Desirable Cholestero l: less than 200 mg/dLBorderline High Cholesterol: 200-239 mg/dLHigh Cholesterol: greater than 239 mg/dL LDL Cholesterol Calculated 74 <100 mg/dL [facility] Comment:Desirable LDL: less than 100 mg/dLNear Optimal/Above Optimal LDL: 110- 129 mg/dLBorderline High LDL: 130-159 mg/dLHigh LDL: 160-189 mg/dLVery High LDL: greater than or equal to 190 mg/dL HDL Cholesterol 35(L) >40 mg/dL [facility] Comment:Desirable HDL: great er than 40 mg/dL Note: This HDL assay may give artificially low results in patients with liver disease. Blood Venous blood specimen / Unknown 04/11/2025 8:09 AM EDT 04/11/2025 3:28 PM EDT us Viry Merino MD LAB BLOOD ORDERABLES Final Result [facility] [address] [place] [address] [phone] * Hepatitis A,B,C Profile (03/12/2024 8:34 AM EDT) Hepatitis A IgM Nonreactive Nonreactive [facility] Comment:IgM antibodies to SOTO V not detected; does not exclude earlyacute or recovered HAV infection. ~Hepatitis B Surface Antibody NONREACTIVE Nonreactive [facility] Comment:Nonreactive: < 8.00 mIU/mL Hepatitis B Core Antibody Nonreactive Nonreactive [facility] Hepatitis C Antibody Nonreactive Nonreactive [facility] Comment:Antibodies to HCV no t detected; does not exclude early acuteHCV infection. Hepatitis B Surface Ag Negative Negative [facility] Blood Venous blood specimen / Unknown 03/12/2024 8:34 AM EDT 03/12/2024 2:39 PM EDT us Viry Merino MD LAB BLOOD ORDERABLES Final Result [facility] [address] [place] [address] [phone] from Last 3 Months or Most Recently Relevant to Health Maintenance [place] [address] [place] [address] MEDICARE ADVANTAGE HMO Care Teams E Business Specialist Relationship Specialty Start Date End Date Viry Merino MD [address] [place] [address] PCP - General Internal Medicine 09/29/18
--- OUTSIDE RECORDS SUMMARY | 2025-09-13 18:20 | XMS_ITS | Encounter Summary ---
Author Organization [employer] Address 75 [facility] 7 [place] [address] Care Team Providers Care Catholic Priest Name Role Phone Viry Merino MD Primary Care Provider [phone]- [phone] Encounter Details Date Type Department Care Team ([facility] st Contact Info) Description 06/04/2023 Orders Only [facility] CHC MED & PEDS [address] [place] [address] Maru Durbin LPN Social History Tobacco Use [...] documented as of this encounter Care Teams Catholic Priest Relationship Specialty Start Date End Date Viry Merino MD [address] [place] [address] PCP - General Internal Medicine 09/29/18 documented as of this encounter
--- OUTSIDE RECORDS SUMMARY | 2025-09-13 18:21 | XMS_ITS | Encounter Summary ---
Author Organization [employer] Address 75 [facility] 7 [place] [address] Care Team Providers Care Powder Worker Tnt Name Role Phone Viry Merino MD Primary Care Provider [phone]- [phone] Reason for Visit * Reason Onset Date Comments Nurse Triage 03/08/2024 Encounter Details Date Type Department Care Team ([facility] st Contact Info) Description 03/08/2024 Telephone [facility] MED & PEDS [address] [place] [address] Viry Merino MD [address] [place] [address] Nurse Triage Social History Tobacco Use Types [...] t he electric, gas, oil or water [employer] threatened to shut off services in your [...] 03/08/2024 4:44 PM EDT Triage call with [employer] Technician [place] [id number] Pt reports rash that is wide spread. Pt reports redness with hive like spots, itchy, not bump or smooth, no blisters. Pt was seen in office 03/01/24 with dx of viral syndrome . Denies difficulty breathing, fever. Home care reviewed Apt with MICHELLE Marx 03/12/24 @ 315pm [facility]. Pt agrees with disposition and [...] documented as of this encounter Care Teams Powder Worker Tnt Relationship Specialty Start Date End Date Viry Merino MD [address] [place] [address] PCP - General Internal Medicine 09/29/18 documented as of this encounter
--- OUTSIDE RECORDS SUMMARY | 2025-09-13 18:21 | XMS_ITS | Encounter Summary ---
Author Organization [employer] Address 75 [facility] 7 [place] [address] Care Team Providers Care Bondactor Machine Operator Name Role Phone Viry Merino MD Primary Care Provider [phone]- [phone] Reason for Visit * Reason Onset Date Comments Results 03/08/2024 Encounter Details Date Type Department Care Team ([facility] st Contact Info) Description 03/08/2024 Telephone [facility] MED & PEDS [address] [place] [address] Viry Merino MD [address] [place] [address] Results Social History Tobacco Use Types Packs/Day [...] ABD US yesterday and was informed at [facility] results would be sent to PCP office. Pt was informed that [facility] has been taking about 2-3 weeks for [...] results: labs Date when done: 03/04/24 Facility: [facility] documented in this encounter Plan of Treatment Not on file documented as of this encounter Visit Diagnoses Not on filedocumented in this encounter Additional Health Concerns Assessment Noted Time PHQ-9 Depression Total Score: 1 12/24/19 23 10:32 AM EDT documented as of this encounter Care Teams Bondactor Machine Operator Relationship Specialty Start Date End Date Viry Merino MD [address] [place] [address] PCP - General Internal Medicine 09/29/18 documented as of this encounter
--- OUTSIDE RECORDS SUMMARY | 2025-09-13 18:21 | XMS_ITS | Encounter Summary ---
Author Organization [employer] Address 75 [facility] 7 [place] [address] Care Team Providers Care Pipe Washer Name Role Phone Viry Merino MD Primary Care Provider [phone] Reason for Visit * Reason Comments Med Refill Encounter Details Date Type Department Care Team ([facility] st Contact Info) Description 02/26/2024 Refill [facility] CHC MED & PEDS [address] [place], [place] [phone] Viry Merino MD [address] [place] [address] Social History Tobacco Use Types Packs/Day Years [...] documented as of this encounter Care Teams Pipe Washer Relationship Specialty Start Date End Date Viry Merino MD [address] [place] [id number] PCP - General Internal Medicine 09/29/18 documented as of this encounter
== END 2025-09-13 15:26 | disposition home or self-care (01) ==
LOC: HO.HGI 14:06
PROVIDERS: PCP Internal Medicine; Visit Provider Nurse Practitioner
DX: R74.01 Elevation of levels of liver transaminase levels (principal)
CPT/HCPCS: 99203

== ENCOUNTER → 2025-09-13 14:05 | Outpatient (BNVA) | payer MEDICARE, MEDICAID, SELFPAY | PROVIDERS: PCP Internal Medicine; Visit Provider Nurse Practitioner | DX: R74.01 Elevation of levels of liver transaminase levels (principal) | CPT/HCPCS: 99202 ==

== ENCOUNTER 2025-09-14 09:53 | Outpatient (REF) | payer MEDICARE, MEDICAID, SELFPAY ==
--- OUTSIDE RECORDS SUMMARY | 2025-09-14 11:54 | XMS_ITS | Encounter Summary ---
Author Organization [employer] Address 75 [facility] 7 [place] [address] Care Team Providers Care Web Communications Specialist Name Role Phone Viry Merino MD Primary Care Provider [phone]- [phone] Encounter Details Date Type Department Care Team ([facility] st Contact Info) Description 01/30/2023 Orders Only [facility] CHC MED & PEDS [address] [place] [address] Randa Briscoe LPN Social History Tobacco Use [...] documented as of this encounter Care Teams Web Communications Specialist Relationship Specialty Start Date End Date Viry Merino MD [address] [place] [address] PCP - General Internal Medicine 09/29/18 documented as of this encounter
--- OUTSIDE RECORDS SUMMARY | 2025-09-14 11:54 | XMS_ITS | Encounter Summary ---
Author Organization [employer] Address [address] [address] Care Team Providers Care Chief Compliance Officer Name Role Phone Viry Merino MD Primary Care Provider +1- [phone] Encounter Details Date Type Department Care Team (Late st Contact Info) Description 12/13/2022 Orders Only [facility] [address] [place], [place] [phone] Viry Merino MD 505 [place], [place] [phone] Social History Tobacco Use Types Packs/Day Years [...] on filedocumented in this encounter Care Teams Chief Compliance Officer Relationship Specialty Start Date End Date Viry Merino MD 505 [place] [address] PCP - General Internal Medicine 09/29/18 documented as of this encounter
--- OUTSIDE RECORDS SUMMARY | 2025-09-14 11:55 | XMS_ITS | Encounter Summary ---
Author Organization [employer] Address 75 [facility] 7t [place] [address] Care Team Providers Care Director Targeted Marketing Name Role Phone Viry Merino MD Primary Care Provider [phone] Reason for Visit * Reason Comments Med Refill Encounter Details Date Type Department Care Team ([facility] st Contact Info) Description 08/30/2024 Refill [facility] CHC MED & PEDS 505 [place], [place] [phone] Prabha Allison MD 505 [place] [address] Social History Tobacco Use Types Packs/Day Years [...] documented as of this encounter Care Teams Director Targeted Marketing Relationship Specialty Start Date End Date Viry Merino MD [address] [place] [address] PCP - General Internal Medicine 09/29/18 documented as of this encounter
--- OUTSIDE RECORDS SUMMARY | 2025-09-14 11:55 | XMS_ITS | Encounter Summary ---
Author Organization [employer] Address 75 [facility] 7t [place] [address] Care Team Providers Care Tobacco Stemmer Machine Name Role Phone Viry Merino MD Primary Care Provider +1- [phone] Encounter Details Date Type Department Care Team ([facility] st Contact Info) Description 07/15/2025 Orders Only [facility] CHC MED & PEDS 505 [place], [place] [phone] Viry Merino MD 505 [place] [address] Weakness of muscle of right side of [...] documented as of this encounter Care Teams Tobacco Stemmer Machine Relationship Specialty Start Date End Date Viry Merino MD [address] [place] [address] PCP - General Internal Medicine 09/29/18 documented as of this encounter
--- OUTSIDE RECORDS SUMMARY | 2025-09-14 11:55 | XMS_ITS | Encounter Summary ---
Author Organization [employer] Address 75 [facility] 7 [place] [address] Care Team Providers Care Golf Coach Name Role Phone Viry Merino MD Primary Care Provider +1- [phone] Encounter Details Date Type Department Care Team ([facility] st Contact Info) Description 06/04/2023 Orders Only [facility] CHC MED & PEDS 505 [place] [address] Maru Durbin LPN Social History Tobacco Use [...] documented as of this encounter Care Teams Golf Coach Relationship Specialty Start Date End Date Viry Merino MD 505 [place] [address] PCP - General Internal Medicine 09/29/18 documented as of this encounter
--- OUTSIDE RECORDS SUMMARY | 2025-09-14 11:55 | XMS_ITS | Clinical Summary ---
Author Organization [facility] Address [address] [place] [address] Care Team Providers Care Ambulance Driver Name Role Phone Unknown Primary Care Provider [phone] Allergies No known active allergies Social History [...] patient's age to complete this topic Insurance [facility] [employer] MEDICAID OUT OF STATE [facility] Care Teams Ambulance Driver Relationship Specialty Start Date End Date Unknown Unknow Provider Address PCP - General 04/12/18
--- OUTSIDE RECORDS SUMMARY | 2025-09-14 11:55 | XMS_ITS | Encounter Summary ---
Author Organization [employer] Address 75 [facility] 7 [place] [address] Care Team Providers Care Pharmacists Name Role Phone Viry Merino MD Primary Care Provider [phone] Reason for Visit * Reason Comments Med Refill Encounter Details Date Type Department Care Team ([facility] st Contact Info) Description 01/02/2024 Refill [facility] CHC MED & PEDS 505 [place], [place] [phone] Viry Merino MD 505 [place] [address] Social History Tobacco Use Types Packs/Day Years [...] documented as of this encounter Care Teams Pharmacists Relationship Specialty Start Date End Date Viry Merino MD [address] [place] [address] PCP - General Internal Medicine 09/29/18 documented as of this encounter
--- OUTSIDE RECORDS SUMMARY | 2025-09-14 11:55 | XMS_ITS | Encounter Summary ---
Author Organization [employer] Address 75 [facility] 7 [place] [address] Care Team Providers Care Web Manager Name Role Phone Viry Merino MD Primary Care Provider [phone]- [phone] Reason for Visit * Reason Comments Med Refill Encounter Details Date Type Department Care Team ([facility] st Contact Info) Description 09/06/2025 Refill [facility] CHC MED & PEDS 505 [place], [place] [phone] Viry Merino MD 505 [place] [address] Other hyperlipidemia Social History Tobacco Use Types [...] as of this encounter Care Teams Web Manager Relationship Specialty Start Date End Date Viry Merino MD [address] [place] [address] PCP - General Internal Medicine 09/29/18 documented as of this encounter
--- OUTSIDE RECORDS SUMMARY | 2025-09-14 11:55 | XMS_ITS | Encounter Summary ---
Author Organization [employer] Address 75 [facility] [address] [address] Care Team Providers Care Die Designer Name Role Phone Viry Merino MD Primary Care Provider +1- [phone] Reason for Referral * Consultation (Routine) - Closed Specialty Diagnoses / Procedures Referred By Ed khoury Referred To Contact Nephrology Diagnoses Abnormal finding on diagnostic imaging of kidney Viry Merino MD 505 [place] [address] Phone: tel: fax: Charles Amato MD [address] [place] [address] Phone: tel: fax: Referral ID Status Reason Start Date Expiration Date V isits Requested Visits Authorized [id number] Closed Specialty Services Required 06/07/2025 06/07/2026 1 1 * Consultation (Routine) - Authorized Specialty Diagnoses / Procedures Referred By Ed khoury Referred To Contact Gastroenterology Diagnoses Transaminitis Viry Merino MD 505 [place] [address] Phone: tel: fax: Olga Willoughby MD [address] [place] [address] Phone: tel: fax: Referral ID Status Reason Start Date Expiration Date Visits Requested Visits Authorized [id number] Authorized Specialty Services Required 06/07/2025 06/07/2026 1 1 Encounter Details Date Type Department Care Team (Late st Contact Info) Description 06/07/2025 Orders Only [facility] CHC MED & PEDS 505 [place] [address] Viry Merino MD 505 [place] [address] Transaminitis (Primary Dx); Abnormal finding on diagnostic [...] documented as of this encounter Care Teams Die Designer Relationship Specialty Start Date End Date Viry Merino MD [address] [place] [address] PCP - General Internal Medicine 09/29/18 documented as of this encounter
--- OUTSIDE RECORDS SUMMARY | 2025-09-14 11:55 | XMS_ITS | Clinical Summary ---
Author Organization [employer] [facility] ity Address [address] [place] [address] Care Team Providers Care Aircraft Maintenance Supervisor Name Role Phone Unavailable Primary Care Provider [...]
--- OUTSIDE RECORDS SUMMARY | 2025-09-14 11:55 | XMS_ITS | Encounter Summary ---
Author Organization [employer] Address 75 [facility] 7 [place] [address] Care Team Providers Care Data Operations Director Name Role Phone Viry Merino MD Primary Care Provider [phone] Reason for Visit * Reason Comments Med Refill Encounter Details Date Type Department Care Team ([facility] st Contact Info) Description 03/25/2024 Refill [facility] CHC MED & PEDS 505 [place], [place] [phone] Viry Merino MD 505 [place] [address] Seasonal allergic rhinitis due to other allergic [...] documented as of this encounter Care Teams Data Operations Director Relationship Specialty Start Date End Date Viry Merino MD 505 [place] [address] PCP - General Internal Medicine 09/29/18 documented as of this encounter
--- OUTSIDE RECORDS SUMMARY | 2025-09-14 11:55 | XMS_ITS | Encounter Summary ---
Author Organization [employer] Address 75 [facility] 7 [place] [address] Care Team Providers Care Pathology Laboratory Technologist Name Role Phone Viry Merino MD Primary Care Provider [phone] Reason for Visit * Reason Comments Med Refill Encounter Details Date Type Department Care Team ([facility] st Contact Info) Description 01/02/2024 Refill [facility] CHC MED & PEDS 505 [place], [place] [phone] Viry Merino MD 505 [place] [address] Social History Tobacco Use Types Packs/Day Years [...] documented as of this encounter Care Teams Pathology Laboratory Technologist Relationship Specialty Start Date End Date Vriy Merino MD [address] [place] [address] PCP - General Internal Medicine 09/29/18 documented as of this encounter
--- OUTSIDE RECORDS SUMMARY | 2025-09-14 11:55 | XMS_ITS | Encounter Summary ---
Author Organization [employer] Address 75 [facility] 7 [place] [address] Care Team Providers Care Photo Printer Name Role Phone Viry Merino MD Primary Care Provider +1- [phone] Reason for Visit * Reason Onset Date Comments Results 03/08/2024 Encounter Details Date Type Department Care Team ([facility] st Contact Info) Description 03/08/2024 Telephone [facility] MED & PEDS 505 [place] [address] Viry Merino MD 505 [place] [address] Results Social History Tobacco Use Types Packs/Day [...] ABD US yesterday and was informed at [facility] results would be sent to PCP office. Pt was informed that [facility] has been taking about 2-3 weeks for [...] results: labs Date when done: 03/04/24 Facility: [facility] documented in this encounter Plan of Treatment Not on file documented as of this encounter Visit Diagnoses Not on filedocumented in this encounter Additional Health Concerns Assessment Noted Time PHQ-9 Depression Total Score: 1 12/24/19 23 10:32 AM EDT documented as of this encounter Care Teams Photo Printer Relationship Specialty Start Date End Date Viry Merino MD 505 [place] [address] PCP - General Internal Medicine 09/29/18 documented as of this encounter
--- OUTSIDE RECORDS SUMMARY | 2025-09-14 11:55 | XMS_ITS | Encounter Summary ---
Author Organization [employer] Address 75 [facility] 7 [place] [address] Care Team Providers Care Artificial Flowers Supervisor Name Role Phone Viry Merino MD Primary Care Provider +1- [phone] Encounter Details Date Type Department Care Team (Late st Contact Info) Description 04/02/2023 Orders Only [facility] MEDICINE [address] [place] [address] Gracie Munguia LPN Social History Tobacco Use [...] documented as of this encounter Care Teams Artificial Flowers Supervisor Relationship Specialty Start Date End Date Viry Merino MD 505 [place] [address] PCP - General Internal Medicine 09/29/18 documented as of this encounter
--- OUTSIDE RECORDS SUMMARY | 2025-09-14 11:55 | XMS_ITS | Encounter Summary ---
Author Organization [employer] Address 75 [facility] 7 [place] [address] Care Team Providers Care Rn Staffing Name Role Phone Viry Merino MD Primary Care Provider +1 [phone] Encounter Details Date Type Department Care Team ([facility] st Contact Info) Description 05/14/2024 Orders Only [facility] CHC MED & PEDS 505 [place], [place] [phone] Viry Merino MD 505 [place] [address] Social History Tobacco Use Types Packs/Day Years [...] documented as of this encounter Care Teams Rn Staffing Relationship Specialty Start Date End Date Viry Merino MD 505 [place] [address] PCP - General Internal Medicine 09/29/18 documented as of this encounter
--- OUTSIDE RECORDS SUMMARY | 2025-09-14 11:55 | XMS_ITS | Encounter Summary ---
Author Organization [employer] Address [address] [address] Care Team Providers Care Ramp Lead Name Role Phone Viry Merino MD Primary Care Provider +1- [phone] Reason for Referral * Imaging (Routine) - Closed Specialty Diagnoses / Procedures Referred By Ed khoury Referred To Contact Radiology Diagnoses Transaminitis Procedures US Abdomen Complete Viry Merino MD 505 [place] [address] Phone: tel: fax: [address] [address] Phone: tel: fax: Referral ID Status Reason Start Date Expiration Date Visits Re quested Visits Authorized [id number] Closed 03/10/2024 03/10/2025 1 1 Encounter Details Date Type Department Care Team (Late st Contact Info) Description 03/10/2024 Orders Only [facility] CHC MED & PEDS 505 [place], [place] [phone] Viry Merino MD 505 [place], [place] [phone] Transaminitis (Primary Dx); Elevated blood sugar Social [...] AM EDT) Hemoglobin A1c 5.5 <6.0 % [facility] Comment:Hemoglobin A1C Refer ence Range Adults: [...] asaverage glucose, using the formula of the Q7C-XbwvypqKxzouti Glucose study (ADAG), Diabetes Care, Vol.31,#8,Apr. 2007 Blood Venous blood specimen / Unknown 03/12/2024 8:34 AM EDT 03/12/2024 2:39 PM EDT us Viry Merino MD LAB BLOOD ORDERABLES Final Result [facility] [address] [place] [phone] * Basic Metabolic Panel (03/12/2024 8:34 [...] 1.210.Chronic Kidney Disease: Estimated GFR < 60 mL/min/1.16c4Hfesbc Kidney Disease: Estimated GFR < 15 mL/min/1.73m2 Glucose 88 60 - 115 mg/dL [facility] Calcium 9.4 8.4 - 10.2 mg/dL [facility] Blood Venous blood specimen / Unknown 03/12/2024 8:34 AM EDT 03/12/2024 2:39 PM EDT us Viry Merino MD LAB BLOOD ORDERABLES Final Result Performing Organization Address [facility] Co de Phone Number [facility] [address] [place] [phone] * Hepatitis A,B,C Profile (03/12/2024 8:34 [...] BLOOD ORDERABLES Final Result Performing Organization Address [facility] de Phone Number [facility] [address] [place] [phone] documented in this encounter Visit Diagnoses Diagnosis Transaminitis- Primary Nonspecific elevation of levels of transaminase or lactic acid dehydrogenase (LDH) Elevated blood sugar Other abnormal glucose documented in this encounter Additional Health Concerns Assessment Noted Time PHQ-9 Depression Total Score: 1 12/24/19 23 10:32 AM EDT documented as of this encounter Care Teams Ramp Lead Relationship Specialty Start Date End Date Viry Merino MD [address] [place] [address] PCP - General Internal Medicine 09/29/18 documented as of this encounter
--- OUTSIDE RECORDS SUMMARY | 2025-09-14 11:55 | XMS_ITS | Encounter Summary ---
Author Organization [employer] Address 75 [facility] 7 [place] [address] Care Team Providers Care Supervisor Of Officials Name Role Phone Viry Merino MD Primary Care Provider [phone] Reason for Visit * Reason Comments Med Refill Encounter Details Date Type Department Care Team ([facility] st Contact Info) Description 02/26/2024 Refill [facility] CHC MED & PEDS 505 [place], [place] [phone] Viry Merino MD 505 [place] [address] Social History Tobacco Use Types Packs/Day Years [...] documented as of this encounter Care Teams Supervisor Of Officials Relationship Specialty Start Date End Date Viry Merino MD [address] [place] [address] PCP - General Internal Medicine 09/29/18 documented as of this encounter
--- OUTSIDE RECORDS SUMMARY | 2025-09-14 11:55 | XMS_ITS | Encounter Summary ---
Author Organization [employer] Address 75 [facility] 7 [place] [address] Care Team Providers Care Supply Technician Name Role Phone Viry Merino MD Primary Care Provider +1 [phone] Reason for Visit * Reason Comments Med Refill Encounter Details Date Type Department Care Team ([facility] st Contact Info) Description 07/04/2023 Refill [facility] CHC MED & PEDS 505 [place], [place] [phone] Viry Merino MD 505 [place] [address] Social History Tobacco Use Types Packs/Day Years [...] documented as of this encounter Care Teams Supply Technician Relationship Specialty Start Date End Date Viry Merino MD [address] [place] [address] PCP - General Internal Medicine 09/29/18 documented as of this encounter
--- OUTSIDE RECORDS SUMMARY | 2025-09-14 11:55 | XMS_ITS | Encounter Summary ---
Author Organization [employer] Address 75 [facility] 7 [place] [address] Care Team Providers Care Inspector Assemblies And Installations Name Role Phone Viry Merino MD Primary Care Provider +- [phone] Reason for Visit * Reason Onset Date Comments Nurse Triage 03/08/2024 Encounter Details Date Type Department Care Team ([facility] st Contact Info) Description 03/08/2024 Telephone [facility] MED & PEDS 505 [place] [address] Viry Merino MD 505 [place] [address] Nurse Triage Social History Tobacco Use Types [...] t he electric, gas, oil or water [employer] threatened to shut off services in your [...] 03/08/2024 4:44 PM EDT Triage call with [employer] [place] [id number] Pt reports rash that is wide spread. Pt reports redness with hive like spots, itchy, not bump or smooth, no blisters. Pt was seen in office 03/01/24 with dx of viral syndrome . Denies difficulty breathing, fever. Home care reviewed Apt with MICHELLE Marx 03/12/24 @ 315pm [facility]. Pt agrees with disposition and home care [...] documented as of this encounter Care Teams Inspector Assemblies And Installations Relationship Specialty Start Date End Date Viry Merino MD 505 [place] [address] PCP - General Internal Medicine 09/29/18 documented as of this encounter
--- OUTSIDE RECORDS SUMMARY | 2025-09-14 11:55 | XMS_ITS | Clinical Summary ---
Author Organization [employer] Address 75 [facility] 7t [place] [address] Care Team Providers Care Recorder Of Deeds Name Role Phone Viry Merino MD Primary Care Provider +1- [phone] Allergies No known active allergies Medications Aspirin [...] an abrasion Case discussed with Dr. 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) (Primary Dx) 07/12/2025 Refill [facility] MED & PEDS [address] [place] [address] Viry Merino MD Gastroesophageal reflux disease without esophagitis 06/27/2025 2:30 PM EDT Office Visit [facility] MED & PEDS [address] [place] [address] Viry Merino MD Essential hypertension (Primary Dx); Tinea pedis of both feet; Transaminitis; Muscle spasm 06/27/2025 Travel 06/24/2025 Telephone [facility] MED & PEDS [address] [place] [address] Viry Merino MD Chart Prep from Last [...] 8:09 AM EDT) Triglycerides 205(H) <150 mg/dL [facility] Comment:Desirable Triglyceri de: less than 150 mg/dLBorderline High Triglyceride 150-199 mg/dLHigh Triglyceride: 200-499 mg/dLVery High Triglyceride: greater than or equal to 5OO mg/dL Cholesterol 150 <200 mg/dL [facility] Comment:Desirable Cholestero l: less than 200 mg/dLBorderline High Cholesterol: 200-239 mg/dLHigh Cholesterol: greater than 239 mg/dL LDL Cholesterol Calculated 74 <100 mg/dL [facility] Comment:Desirable LDL: less than 100 mg/dLNear Optimal/Above Optimal LDL: 110- 129 mg/dLBorderline High LDL: 130-159 mg/dLHigh LDL: 160-189 mg/dLVery High LDL: greater than or equal to 190 mg/dL HDL Cholesterol 35(L) >40 mg/dL [facility] Comment:Desirable HDL: great er than 40 mg/dL Note: This HDL assay may give artificially low results in patients with liver disease. Blood Venous blood specimen / Unknown 04/11/2025 8:09 AM EDT 04/11/2025 3:28 PM EDT us Viry Merino MD LAB BLOOD ORDERABLES Final Result [facility] [address] [place] [address] [phone] * Hepatitis A,B,C Profile (03/12/2024 8:34 AM EDT) Hepatitis A IgM Nonreactive Nonreactive [facility] Comment:IgM antibodies to SOTO V not detected; does not exclude earlyacute or recovered HAV infection. ~Hepatitis B Surface Antibody NONREACTIVE Nonreactive [facility] Comment:Nonreactive: < 8.00 mIU/mL Hepatitis B Core Antibody Nonreactive Nonreactive [facility] Hepatitis C Antibody Nonreactive Nonreactive [facility] Comment:Antibodies to HCV no t detected; does not exclude early acuteHCV infection. Hepatitis B Surface Ag Negative Negative [facility] Blood Venous blood specimen / Unknown 03/12/2024 8:34 AM EDT 03/12/2024 2:39 PM EDT us Viry Merino MD LAB BLOOD ORDERABLES Final Result [facility] [address] [place] [address] [phone] from Last 3 Months or Most Recently Relevant to Health Maintenance [place] [address] [place] [address] MEDICARE ADVANTAGE HMO Care Teams Recorder Of Deeds Relationship Specialty Start Date End Date Viry Meirno MD [address] [place] [address] PCP - General Internal Medicine 09/29/18
[2025-09-14 15:04] LABS: Alanine Aminotransferase 37 U/L (0-40); Albumin Level 4.2 g/dL (3.5-5.0); Alkaline Phosphatase 80 U/L (39-117); Aspartate Amino Transferase 33 U/L (5-37); Total Protein 7.1 g/dL (6.5-8.0)
[2025-09-14 15:21] LABS: Ferritin 54 ng/mL (20-250)
[2025-09-15 04:02] LABS: HIV Num 1 0.05 S/CO (0.00-0.99)
== END 2025-09-14 09:54 | disposition home or self-care (01) ==
LOC: HO.HKASLDS 09:53
PROVIDERS: Nurse Practitioner; PCP Internal Medicine; Visit Provider Internal Medicine Nephrology
DX: Z51.81 Encounter for therapeutic drug level monitoring (principal); R74.01 Elevation of levels of liver transaminase levels; Z13.29 Encounter for screening for other suspected endocrine disorder; Z01.84 Encounter for antibody response examination
CPT/HCPCS: 36415; 80076; 80321; 81596; 82105; 82390; 82728; 84443; 86015; 86038; 86381; 87389

== ENCOUNTER 2025-09-15 09:13 | Outpatient (REF) | payer MEDICARE, MEDICAID, SELFPAY ==
--- NOTE | ~2025-09-15 | US_ITS ---
EXAMINATION: ULTRASOUND RENAL WITH DOPPLER CLINICAL INFORMATION: Essentially hypertension. Rule out renal artery stenosis COMPARISON: Ultrasound abdomen 06/07/2025 TECHNIQUE: Real-time grayscale, color Doppler, and duplex Doppler evaluation of the kidneys and renal vasculature was performed. FINDINGS: RENAL MEASUREMENTS: Right: 11.4 x 5.9 x 6 cm (Sag x AP x TV) Left: 11.5 x 5.2 x 6 cm (Sag x AP x TV) The renal parenchyma appears normal. No hydronephrosis or nephrolithiasis. DOPPLER INTERROGATION: Aorta: 84.3 cm/sec Right Main Renal Artery: Proximal: Not visualized Mid: 68.8 cm/sec Distal: 0.93 cm/sec Left Main Renal Artery: Proximal: 152 cm/sec Mid: 1:30 cm/sec Distal: 75 cm/sec Renal-Aortic Ratio (RAR): Right: 0.93 Left: 1.8 Segmented RI: Right upper: 0.57 Mid: 0.57 LP::0.6 Left upper: 0.63 Mid: 0.72 LP:0.67 Bilateral renal veins are patent. US/US renal doppler IMPRESSION: Doppler ultrasound measurements of bilateral renal arteries are within normal limits. The peak systolic velocity and resistive index measurements are within normal limits. Electronically signed by: Vipin Eisenberg MD 09/15/2025 04:20 PM LUZ
--- OUTSIDE RECORDS SUMMARY | 2025-09-15 10:27 | XMS_ITS | Encounter Summary ---
Author Organization [email or web address] Address 75 [facility] 7 [place] [address] Care Team Providers Care Open Shank Coverer Name Role Phone Viry Merino MD Primary Care Provider +1- [phone] Encounter Details Date Type Department Care Team (Late st Contact Info) Description 04/02/2023 Orders Only [facility] MEDICINE [address] [place] [address] Gracie Munguia LPN Social History Tobacco Use [...] documented as of this encounter Care Teams Open Shank Coverer Relationship Specialty Start Date End Date Viry Merino MD 505 [place] [address] PCP - General Internal Medicine 09/29/18 documented as of this encounter
--- OUTSIDE RECORDS SUMMARY | 2025-09-15 10:27 | XMS_ITS | Encounter Summary ---
Author Organization [employer] Address [address] [address] Care Team Providers Care Hat And Cap Sewer Name Role Phone Viry Merino MD Primary Care Provider +1- [phone] Encounter Details Date Type Department Care Team (Late st Contact Info) Description 12/13/2022 Orders Only [facility] [address] [place], [place] [phone] Viry Merino MD 505 [place], [place] [phone] Social History Tobacco Use Types Packs/Day Years [...] on filedocumented in this encounter Care Teams Hat And Cap Sewer Relationship Specialty Start Date End Date Viry Merino MD 505 [place] [address] PCP - General Internal Medicine 09/29/18 documented as of this encounter
--- OUTSIDE RECORDS SUMMARY | 2025-09-15 10:27 | XMS_ITS | Encounter Summary ---
Author Organization [employer] Address 75 [facility] 7 [place] [address] Care Team Providers Care Loom Starter Name Role Phone Viry Merino MD Primary Care Provider [phone]- [phone] Encounter Details Date Type Department Care Team ([facility] st Contact Info) Description 06/04/2023 Orders Only [facility] CHC MED & PEDS [address] [place] [address] Maru Durbin LPN Social History Tobacco Use [...] documented as of this encounter Care Teams Loom Starter Relationship Specialty Start Date End Date Viry Merino MD [address] [place] [address] PCP - General Internal Medicine 09/29/18 documented as of this encounter
--- OUTSIDE RECORDS SUMMARY | 2025-09-15 10:27 | XMS_ITS | Encounter Summary ---
Author Organization [employer] Address 75 [facility] 7t [place] [address] Care Team Providers Care Manager Implementation Name Role Phone Viry Merino MD Primary Care Provider [phone] Encounter Details Date Type Department Care Team ([facility] st Contact Info) Description 07/15/2025 Orders Only [facility] CHC MED & PEDS [address] [place], [place] [phone] Viry Merino MD 505 [place] [address] Weakness of muscle of right side of [...] documented as of this encounter Care Teams Manager Implementation Relationship Specialty Start Date End Date Viry Merino MD [address] [place] [address] PCP - General Internal Medicine 09/29/18 documented as of this encounter
--- OUTSIDE RECORDS SUMMARY | 2025-09-15 10:27 | XMS_ITS | Encounter Summary ---
Author Organization [employer] Address 75 [facility] 7 [place] [address] Care Team Providers Care Snap Attacher Name Role Phone Viry Merino MD Primary Care Provider [phone]- [phone] Encounter Details Date Type Department Care Team ([facility] st Contact Info) Description 01/30/2023 Orders Only [facility] CHC MED & PEDS [address] [place] [address] Randa Briscoe LPN Social History Tobacco Use [...] documented as of this encounter Care Teams Snap Attacher Relationship Specialty Start Date End Date Viry Merino MD 505 [place] [address] PCP - General Internal Medicine 09/29/18 documented as of this encounter
--- OUTSIDE RECORDS SUMMARY | 2025-09-15 10:28 | XMS_ITS | Encounter Summary ---
Author Organization [employer] Address 75 [facility] 7 [place] [address] Care Team Providers Care Cryptological Technician Name Role Phone Viry Merino MD Primary Care Provider [phone] Reason for Visit * Reason Comments Med Refill Encounter Details Date Type Department Care Team ([facility] st Contact Info) Description 03/25/2024 Refill [facility] CHC MED & PEDS 505 [place], [place] [phone] Viry Merino MD [address] [place] [address] Seasonal allergic rhinitis due to other allergic [...] documented as of this encounter Care Teams Cryptological Technician Relationship Specialty Start Date End Date Viry Merino MD [address] [place] [address] PCP - General Internal Medicine 09/29/18 documented as of this encounter
--- OUTSIDE RECORDS SUMMARY | 2025-09-15 10:28 | XMS_ITS | Clinical Summary ---
Author Organization [employer] Address 75 [facility] 7t [place] [address] Care Team Providers Care Conservation Scientist Name Role Phone Viry Merino MD Primary Care Provider [phone]- [phone] Allergies No known active allergies Medications Aspirin [...] an abrasion Case discussed with Dr. 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) (Primary Dx) 07/12/2025 Refill [facility] [address] [place] [address] Viry Merino MD Gastroesophageal reflux disease without esophagitis 06/27/2025 2:30 PM EDT Office Visit [facility] [address] [place] [address] Viry Merino MD Essential hypertension (Primary Dx); Tinea pedis of both feet; Transaminitis; Muscle spasm 06/27/2025 Travel 06/24/2025 Telephone [facility] [address] [place] [address] Viry Merino MD Chart Prep from Last [...] Procedure Name Priority Date/Time Associated Diagnosis Comments CERULOPLASMIN Routine 09/14/2025 10:00 AM EST HIV 1/2 ANTIGEN/ANTIBODY, FOURTH GENERATION W/RFL Routine 09/14/2025 10:00 AM EST TSH W/REFLEX TO FT4 Routine 09/14/2025 1 0:00 AM EST FERRITIN Routine 09/14/2025 10:00 AM EST HEPATIC FUNCTION PANEL Routine 10:00 AM EST LIPID PANEL, STANDARD Routine 04/11/2025 8:09 AM EDT Transaminitis HEPATITIS PANEL, GENERAL Routine 03/12/2024 8:34 AM EDT Transaminitis from Last 3 Months or Most Recently Relevant to Health Maintenance Results * TSH with Reflex to Free T4 (09/14/2025 10:00 AM EST) TSH reflex Free T4 1.18 0.32 - 4.0 uIU/mL [facility] 09/14/2025 10:0 0 AM EST 09/14/2025 2:03 PM EST us Generic External Data Provider LAB BLOOD ORDERAB LES Final Result [facility] [address] [place] [phone] * HIV-1/2 Antigen and Antibodies, Fourth Generation, with Reflexes (09/14/2025 10:00 AM EST) HIV AB/AG Nonreactive Nonreactive [facility] Comment:HIV-1 p24 Ag and/or HIV-1/HIV-2 Ab not detected.A test result that is nonreactive does not exclude thepossibility of exposure to or infection with HIV-1 and/orHIV-2. Nonreactive results in this assay for individualswith prior exposure to HIV-1 and/or HIV-2 may be due toantigen and antibody levels that are below the limit ofdetection of this assay.The [employer] HIV Ag/Ab Combo assay result andsupplemental assay results should be interpreted inconjunction with the patient's clinical presentation,history and other laboratory results. If the results areinconsistent with clinical evidence, additional testing issuggested to confirm the result. 09/14/2025 10:0 0 AM EST 09/14/2025 2:07 PM EST Generic External Data Provider LAB BLOOD ORDERAB LES Final Result Performing Organization Address [facility]/ZIP Co de Phone Number [facility] [address] [place] [address] [phone] * Ferritin (09/14/2025 10:00 AM EST) Ferritin 54 20 - 250 ng/mL [facility] 09/14/2025 10:0 0 AM EST 09/14/2025 2:03 PM EST [employer] External Data Provider LAB BLOOD ORDERAB LES Final Result Performing Organization Address [facility] Co de Phone Number [facility] [address] [place] [phone] * Hepatic Function Panel (09/14/2025 10:00 AM EST) Bilirubin, Total 0.7 0.0 - 1.0 mg/dL [facility] Bilirubin, Direct 0.3 0.0 - 0.5 mg/dL [facility] Aspartate Amino Transferase 33 5 - 37 U/L [facility] Alanine Aminotransferase 37 0 - 40 U/L [facility] Total Protein 7.1 6.5 - 8.0 g/dL [facility] Albumin Level 4.2 3.5 - 5.0 g/dL [facility] Alkaline Phosphatase 80 39 - 117 U/L [facility] 09/14/2025 10:0 0 AM EST 09/14/2025 2:03 PM EST us Generic External Data Provider LAB BLOOD ORDERAB LES Final Result Performing Organization Address [facility]/ZIP Co de Phone Number [facility] [address] [place] [phone] * (ABNORMAL) Lipid Panel, Standard (04/11/2025 8:09 AM EDT) Triglycerides 205(H) <150 mg/dL [facility] Comment:Desirable Triglyceri de: less than 150 mg/dLBorderline High Triglyceride 150-199 mg/dLHigh Triglyceride: 200-499 mg/dLVery High Triglyceride: greater than or equal to 5OO mg/dL Cholesterol 150 <200 mg/dL [facility] Comment:Desirable Cholestero l: less than 200 mg/dLBorderline High Cholesterol: 200-239 mg/dLHigh Cholesterol: greater than 239 mg/dL LDL Cholesterol Calculated 74 <100 mg/dL [facility] Comment:Desirable LDL: less than 100 mg/dLNear Optimal/Above Optimal LDL: 110- 129 mg/dLBorderline High LDL: 130-159 mg/dLHigh LDL: 160-189 mg/dLVery High LDL: greater than or equal to 190 mg/dL HDL Cholesterol 35(L) >40 mg/dL [facility] Comment:Desirable HDL: great er than 40 mg/dL Note: This HDL assay may give artificially low results in patients with liver disease. Blood Venous blood specimen / Unknown 04/11/2025 8:09 AM EDT 04/11/2025 3:28 PM EDT us Viry Merino MD LAB BLOOD ORDERABLES Final Result Performing Organization Address [facility]/ZIP Co de Phone Number [facility] [address] [place] [phone] * Hepatitis A,B,C Profile (03/12/2024 8:34 AM EDT) Hepatitis A IgM Nonreactive Nonreactive [facility] Comment:IgM antibodies to SOTO V not detected; does not exclude earlyacute or recovered HAV infection. ~Hepatitis B Surface Antibody NONREACTIVE Nonreactive [facility] Comment:Nonreactive: < 8.00 mIU/mL Hepatitis B Core Antibody Nonreactive Nonreactive [facility] Hepatitis C Antibody Nonreactive Nonreactive [facility] Comment:Antibodies to HCV no t detected; does not exclude early acuteHCV infection. Hepatitis B Surface Ag Negative Negative [facility] Blood Venous blood specimen / Unknown 03/12/2024 8:34 AM EDT 03/12/2024 2:39 PM EDT Viry Merino MD LAB BLOOD ORDERABLES Final Result Performing Organization Address City/State/[facility] Co de Phone Number [facility] [address] [place] [phone] from Last 3 Months or Most Recently Relevant to Health [place] [address] Care Teams Conservation Scientist Relationship Specialty Start Date End Date Viry Merino MD [address] [place] [phone] PCP - General Internal Medicine 09/29/18
--- OUTSIDE RECORDS SUMMARY | 2025-09-15 10:28 | XMS_ITS | Encounter Summary ---
Author Organization [employer] Address 75 [facility] 7t [place] [address] Care Team Providers Care Salvage Diver Name Role Phone Viry Merino MD Primary Care Provider [phone] Encounter Details Date Type Department Care Team ([facility] Contact Info) Description 09/14/2025 Orders Only GENERIC EXTERNAL DATA DEPARTMENT Provider, Generic External Data Social History Tobacco Use Types Packs/Day Years [...] as of this encounter Plan of Treatment Pending Results Name Type Priority Associated Diagnoses Date /Time Ceruloplasmin Lab Routine 09/14/2025 10:00 AM EST documented as of this encounter Procedures Procedure Name Priority Date/Time Associated Diagnosis Comments TSH W/REFLEX TO FT4 Routine 09/14/2025 1 0:00 AM EST CERULOPLASMIN Routine 09/14/2025 10:00 AM EST HIV 1/2 ANTIGEN/ANTIBODY, FOURTH GENERATION W/RFL Routine 09/14/2025 10:00 AM EST FERRITIN Routine 09/14/2025 10:00 AM EST HEPATIC FUNCTION PANEL Routine 10:00 AM EST documented in this encounter Results * HIV-1/2 Antigen and Antibodies, Fourth Generation, with Reflexes (09/14/2025 10:00 AM EST) Pathologist [facility] HIV AB/AG Nonreactive Nonreactive [facility] Comment:HIV-1 p24 Ag and/or HIV-1/HIV-2 Ab not detected.A test result that is nonreactive does not exclude thepossibility of exposure to or infection with HIV-1 and/orHIV-2. Nonreactive results in this assay for individualswith prior exposure to HIV-1 and/or HIV-2 may be due toantigen and antibody levels that are below the limit ofdetection of this assay.The 3 day [employer] HIV Ag/Ab Combo assay result andsupplemental assay results should be interpreted inconjunction with the patient's clinical presentation,history and other laboratory results. If the results areinconsistent with clinical evidence, additional testing issuggested to confirm the result. 09/14/2025 10:0 0 AM EST 09/14/2025 2:07 PM EST Generic External Data Provider LAB BLOOD ORDERAB LES Final Result Performing Organization Address [facility] Phone Number [facility] [address] [place] [phone] * TSH with Reflex to Free T4 (09/14/2025 10:00 AM EST) TSH reflex Free T4 1.18 0.32 - 4.0 uIU/mL [facility] 09/14/2025 10:0 0 AM EST 09/14/2025 2:03 PM EST Generic External Data Provider LAB BLOOD ORDERAB LES Final Result Performing Organization Address [facility] Phone Number [facility] [address] [place] [phone] * Ferritin (09/14/2025 10:00 AM EST) Ferritin 54 20 - 250 ng/mL [facility] 09/14/2025 10:0 0 AM EST 09/14/2025 2:03 PM EST Generic External Data Provider LAB BLOOD ORDERAB LES Final Result Performing Organization Address [facility] Phone Number [facility] [address] [place] [phone] * Hepatic Function Panel (09/14/2025 10:00 AM EST) Bilirubin, Total 0.7 0.0 - 1.0 mg/dL [facility] Bilirubin, Direct 0.3 0.0 - 0.5 mg/dL [facility] Aspartate Amino Transferase 33 5 - 37 U/L [facility] Alanine Aminotransferase 37 0 - 40 U/L [facility] Total Protein 7.1 6.5 - 8.0 g/dL [facility] Albumin Level 4.2 3.5 - 5.0 g/dL [facility] Alkaline Phosphatase 80 39 - 117 U/L [facility] 09/14/2025 10:0 0 AM EST 09/14/2025 2:03 PM EST us Generic External Data Provider LAB BLOOD ORDERAB LES Final Result [facility] [address] [place] [phone] documented in this encounter Visit Diagnoses Not on filedocumented in this encounter Additional Health Concerns Assessment Noted Time PHQ-9 Depression Total Score: 2 06/27/20 25 3:21 PM EDT documented as of this encounter Care Teams Salvage Diver Relationship Specialty Start Date End Date Viry Merino MD [address] [place] [address] PCP - General Internal Medicine 09/29/18 documented as of this encounter
--- OUTSIDE RECORDS SUMMARY | 2025-09-15 10:28 | XMS_ITS | Encounter Summary ---
Author Organization [employer] Address [address] [address] Care Team Providers Care Seismograph Recorder Name Role Phone Viry Merino MD Primary Care Provider [phone]- [phone] Reason for Referral * Imaging (Routine) - Closed Specialty Diagnoses / Procedures Referred By Ed khoury Referred To Contact Radiology Diagnoses Transaminitis Procedures US Abdomen Complete Viry Merino MD [address] [place] [address] Phone: tel: fax: [address] [phone] Phone: tel: fax: Referral ID Status Reason Start Date Expiration Date Visits Re quested Visits Authorized [id number] Closed 03/10/2024 03/10/2025 1 1 Encounter Details Date Type Department Care Team (Late st Contact Info) Description 03/10/2024 Orders Only [facility] MED & PEDS [address] [place], [place] [phone] Viry Merino MD [address] [place], [place] [phone] Transaminitis (Primary Dx); Elevated blood sugar Social [...] AM EDT) Hemoglobin A1c 5.5 <6.0 % [facility] Comment:Hemoglobin A1C Refer ence Range Adults: 4.8 - 6.0 % Non diabetic: < 6.0 % Goal: < 7.0 %Additional Action Suggested: > 8.0 %Note: Hemoglobin A1c results are invalid for patients with abnormal amounts of HbF. Blood transfusions may impact the HbA1c concentration in the patient sample. Estimated Average Glucose 111 mg/dL [facility] Comment:eAG = Estimated ave rage glucose which is %A1C expressed asaverage glucose, using the formula of the Y2M-LbginqxLxrxrxe Glucose study (ADAG), Diabetes Care, Vol.31,#8,Apr. 2007 Blood Venous blood specimen / Unknown 03/12/2024 8:34 AM EDT 03/12/2024 2:39 PM EDT us Viry Merino MD LAB BLOOD ORDERABLES Final Result [facility] [address] [place] [phone] * Basic Metabolic Panel (03/12/2024 8:34 AM EDT) Sodium 137 135 - 145 mmol/L [facility] Potassium 4.7 3.3 - 5.1 mmol/L [facility] Chloride 104 96 - 108 mmol/L [facility] Carbon Dioxide 25 22 - 29 mmol/L [facility] Anion Gap 13 12 - 20 [facility] Urea Nitrogen (BUN) 14 9 - 16 mg/dL [facility] Creatinine, Serum 0.87 0.5 - 1.4 mg/dL [facility] Estimated Glomerular Filt Rate >60 [facility] Comment:NOTE: For -Am erican individuals, multiply the result by 1.210.Chronic Kidney Disease: Estimated GFR < 60 mL/min/1.23a9Fbnbml Kidney Disease: Estimated GFR < 15 mL/min/1.73m2 Glucose 88 60 - 115 mg/dL [facility] Calcium 9.4 8.4 - 10.2 mg/dL [facility] Blood Venous blood specimen / Unknown 03/12/2024 8:34 AM EDT 03/12/2024 2:39 PM EDT us Viry Merino MD LAB BLOOD ORDERABLES Final Result Performing Organization Address [facility] Co de Phone Number [facility] [address] [place] [phone] * Hepatitis A,B,C Profile (03/12/2024 8:34 AM EDT) Hepatitis A IgM Nonreactive Nonreactive [facility] Comment:IgM antibodies to SOTO V not detected; does not exclude earlyacute or recovered HAV infection. ~Hepatitis B Surface Antibody NONREACTIVE Nonreactive [facility] Comment:Nonreactive: < 8.00 mIU/mL Hepatitis B Core Antibody Nonreactive Nonreactive [facility] Hepatitis C Antibody Nonreactive Nonreactive [facility] Comment:Antibodies to HCV no t detected; does not exclude early acuteHCV infection. Hepatitis B Surface Ag Negative Negative [facility] Blood Venous blood specimen / Unknown 03/12/2024 8:34 AM EDT 03/12/2024 2:39 PM EDT us Viry Merino MD LAB BLOOD ORDERABLES Final Result Performing Organization Address [facility] de Phone Number [facility] [address] [place] [phone] documented in this encounter Visit Diagnoses Diagnosis Transaminitis- Primary Nonspecific elevation of levels of transaminase or lactic acid dehydrogenase (LDH) Elevated blood sugar Other abnormal glucose documented in this encounter Additional Health Concerns Assessment Noted Time PHQ-9 Depression Total Score: 1 12/24/19 23 10:32 AM EDT documented as of this encounter Care Teams Seismograph Recorder Relationship Specialty Start Date End Date Viry Merino MD [address] [place] [address] PCP - General Internal Medicine 09/29/18 documented as of this encounter
--- OUTSIDE RECORDS SUMMARY | 2025-09-15 10:28 | XMS_ITS | Encounter Summary ---
Author Organization [employer] Address 75 [facility] 7 [place] [address] Care Team Providers Care Agricultural Produce Packer Name Role Phone Viry Merino MD Primary Care Provider [phone]- [phone] Reason for Visit * Reason Comments Med Refill Encounter Details Date Type Department Care Team ([facility] st Contact Info) Description 09/06/2025 Refill [facility] MED & PEDS [address] [place], [place] [phone] Viry Merino MD [address] [place] [address] Other hyperlipidemia Social History Tobacco Use Types [...] documented as of this encounter Care Teams Agricultural Produce Packer Relationship Specialty Start Date End Date Viry Merino MD [address] [place] [address] PCP - General Internal Medicine 09/29/18 documented as of this encounter
--- OUTSIDE RECORDS SUMMARY | 2025-09-15 10:28 | XMS_ITS | Clinical Summary ---
Author Organization [employer] Address [address] [place] [address] Care Team Providers Care Lead Software Engineer Name Role Phone Unknown Primary Care Provider [phone] Allergies No known active allergies Social History [...] patient's age to complete this topic Insurance [facility] COMMERCIAL MEDICAID OUT OF STATE [facility] Care Teams Lead Software Engineer Relationship Specialty Start Date End Date Unknown Unknow Provider Address PCP - General 04/12/18
--- OUTSIDE RECORDS SUMMARY | 2025-09-15 10:29 | XMS_ITS | Encounter Summary ---
Author Organization [employer] Address 75 [facility] 7 [place] [address] Care Team Providers Care Certified Low Vision Therapist Name Role Phone Viry Merino MD Primary Care Provider [phone] Reason for Visit * Reason Comments Med Refill Encounter Details Date Type Department Care Team ([facility] st Contact Info) Description 01/02/2024 Refill [facility] CHC MED & PEDS [address] [place], [place] [phone] Viry Merino MD [address] [place] [address] Social History Tobacco Use Types Packs/Day Years [...] documented as of this encounter Care Teams Certified Low Vision Therapist Relationship Specialty Start Date End Date Viry Merino MD [address] [place] [phone] PCP - General Internal Medicine 09/29/18 documented as of this encounter
--- OUTSIDE RECORDS SUMMARY | 2025-09-15 10:29 | XMS_ITS | Encounter Summary ---
Author Organization [employer] Address 75 [facility] [place] [address] Care Team Providers Care Briquetter Operator Name Role Phone Viry Merino MD Primary Care Provider [phone] Reason for Referral * Consultation (Routine) - Closed Specialty Diagnoses / Procedures Referred By Ed khoury Referred To Contact Nephrology Diagnoses Abnormal finding on diagnostic imaging of kidney Viry Mreino MD [address] [place] [address] Phone: tel: fax: Charles Amato MD [address] [place] [phone] Phone: tel: fax: Referral ID Status Reason Start Date Expiration Date V isits Requested Visits Authorized [id number] Closed Specialty Services Required 06/07/2025 06/07/2026 1 1 * Consultation (Routine) - Authorized Specialty Diagnoses / Procedures Referred By Ed khoury Referred To Contact Gastroenterology Diagnoses Transaminitis Viry Merino MD [address] [place] [address] Phone: tel: fax: Olga Willoughby MD [address] [place] [address] Phone: tel: fax: Referral ID Status Reason Start Date Expiration Date Visits Requested Visits Authorized [id number] Authorized Specialty Services Required 06/07/2025 06/07/2026 1 1 Encounter Details Date Type Department Care Team (Late st Contact Info) Description 06/07/2025 Orders Only [facility] MED & PEDS [address] [place] [address] Viry Merino MD [address] [place] [address] Transaminitis (Primary Dx); Abnormal finding on diagnostic [...] documented as of this encounter Care Teams Briquetter Operator Relationship Specialty Start Date End Date Viry Merino MD [address] [place] [phone] PCP - General Internal Medicine 09/29/18 documented as of this encounter
--- OUTSIDE RECORDS SUMMARY | 2025-09-15 10:29 | XMS_ITS | Encounter Summary ---
Author Organization [employer] Address 75 [facility] 7t [place] [address] Care Team Providers Care Powerhouse Engineer Name Role Phone Viry Merino MD Primary Care Provider [phone] Reason for Visit * Reason Comments Med Refill Encounter Details Date Type Department Care Team ([facility] st Contact Info) Description 08/30/2024 Refill [facility] MED & PEDS [address] [place], [place] [phone] Prabha Allison MD 505 [place] [address] Social History Tobacco Use Types Packs/Day Years [...] documented as of this encounter Care Teams Powerhouse Engineer Relationship Specialty Start Date End Date Viry Merino MD [address] [place] [phone] PCP - General Internal Medicine 09/29/18 documented as of this encounter
--- OUTSIDE RECORDS SUMMARY | 2025-09-15 10:29 | XMS_ITS | Encounter Summary ---
Author Organization [employer] Address 75 [facility] 7 [place] [address] Care Team Providers Care Entry Manager Name Role Phone Viry Merino MD Primary Care Provider [phone]- [phone] Reason for Visit * Reason Onset Date Comments Nurse Triage 03/08/2024 Encounter Details Date Type Department Care Team ([facility] st Contact Info) Description 03/08/2024 Telephone [facility] MED & PEDS [address] [place] [address] Viry Merino MD 505 [place] [address] Nurse Triage Social History Tobacco Use Types [...] t he electric, gas, oil or water [employer] threatened to shut off services in your [...] 03/08/2024 4:44 PM EDT Triage call with [employer] Maintenance Manager [place] [id number] Pt reports rash that is wide spread. Pt reports redness with hive like spots, itchy, not bump or smooth, no blisters. Pt was seen in office 03/01/24 with dx of viral syndrome . Denies difficulty breathing, fever. Home care reviewed Apt with MICHELLE Marx 03/12/24 @ 315pm [facility]. Pt agrees with disposition and [...] documented as of this encounter Care Teams Entry Manager Relationship Specialty Start Date End Date Viry Merino MD 505 [place] [address] PCP - General Internal Medicine 09/29/18 documented as of this encounter
--- OUTSIDE RECORDS SUMMARY | 2025-09-15 10:29 | XMS_ITS | Encounter Summary ---
Author Organization [employer] Address 75 [facility] 7 [place] [address] Care Team Providers Care Coating Machine Operator Helper Name Role Phone Viry Merino MD Primary Care Provider [phone] Reason for Visit * Reason Onset Date Comments Results 03/08/2024 Encounter Details Date Type Department Care Team ([facility] st Contact Info) Description 03/08/2024 Telephone [facility] MED & PEDS [address] [place] [address] Viry Merino MD 505 [place] [address] Results Social History Tobacco Use Types Packs/Day [...] ABD US yesterday and was informed at [facility] results would be sent to PCP office. Pt was informed that [facility] has been taking [...] results: labs Date when done: 03/04/24 Facility: [facility] documented in this encounter Plan of Treatment Not on file documented as of this encounter Visit Diagnoses Not on filedocumented in this encounter Additional Health Concerns Assessment Noted Time PHQ-9 Depression Total Score: 1 12/24/19 23 10:32 AM EDT documented as of this encounter Care Teams Coating Machine Operator Helper Relationship Specialty Start Date End Date Viry Merino MD [address] [place] [address] PCP - General Internal Medicine 09/29/18 documented as of this encounter
--- OUTSIDE RECORDS SUMMARY | 2025-09-15 10:29 | XMS_ITS | Clinical Summary ---
Author Organization [facility] Address [address] [place] [address] Care Team Providers Care Crystal Gazer Name Role Phone Unavailable Primary Care Provider [...]
--- OUTSIDE RECORDS SUMMARY | 2025-09-15 10:29 | XMS_ITS | Encounter Summary ---
Author Organization [employer] Address 75 [facility] 7 [place] [address] Care Team Providers Care Systems Architect Name Role Phone Viry Merino MD Primary Care Provider [phone] Reason for Visit * Reason Comments Med Refill Encounter Details Date Type Department Care Team ([facility] st Contact Info) Description 01/02/2024 Refill [facility] MED & PEDS [address] [place], [place] [phone] Viry Merino MD 505 [place] [address] Social History Tobacco Use Types Packs/Day Years [...] documented as of this encounter Care Teams Systems Architect Relationship Specialty Start Date End Date Viry Merino MD [address] [place] [phone] PCP - General Internal Medicine 09/29/18 documented as of this encounter
--- OUTSIDE RECORDS SUMMARY | 2025-09-15 10:29 | XMS_ITS | Encounter Summary ---
Author Organization [employer] Address 75 [facility] 7 [place] [address] Care Team Providers Care Roll Cutter Name Role Phone Viry Merino MD Primary Care Provider [phone] Reason for Visit * Reason Comments Med Refill Encounter Details Date Type Department Care Team ([facility] st Contact Info) Description 07/04/2023 Refill [facility] MED & PEDS [address] [place], [place] [phone] Viry Merino MD 505 [place] [address] Social History Tobacco Use Types Packs/Day Years [...] documented as of this encounter Care Teams Roll Cutter Relationship Specialty Start Date End Date Viry Merino MD [address] [place] [address] PCP - General Internal Medicine 09/29/18 documented as of this encounter
--- OUTSIDE RECORDS SUMMARY | 2025-09-15 10:29 | XMS_ITS | Encounter Summary ---
Author Organization [employer] Address 75 [facility] 7 [place] [address] Care Team Providers Care Professor Of Theology Name Role Phone Viry Merino MD Primary Care Provider [phone] Encounter Details Date Type Department Care Team ([facility] st Contact Info) Description 05/14/2024 Orders Only [facility] MED & PEDS 505 [place], [place] [phone] Viry Merino MD 505 [place] [address] Social History Tobacco Use Types Packs/Day Years [...] documented as of this encounter Care Teams Professor Of Theology Relationship Specialty Start Date End Date Viry Merino MD [address] [place] [address] PCP - General Internal Medicine 09/29/18 documented as of this encounter
--- OUTSIDE RECORDS SUMMARY | 2025-09-15 10:29 | XMS_ITS | Encounter Summary ---
Author Organization [employer] Address 75 [facility] 7 [place] [address] Care Team Providers Care Strike Planning Applications Name Role Phone Viry Merino MD Primary Care Provider [phone] Reason for Visit * Reason Comments Med Refill Encounter Details Date Type Department Care Team ([facility] st Contact Info) Description 02/26/2024 Refill [facility] MED & PEDS 505 [place], [place] [phone] Viry Merino MD 505 [place] [address] Social History Tobacco Use Types Packs/Day Years [...] documented as of this encounter Care Teams Strike Planning Applications Relationship Specialty Start Date End Date Viry Merino MD [address] [place] [address] PCP - General Internal Medicine 09/29/18 documented as of this encounter
== END 2025-09-15 09:14 | disposition home or self-care (01) ==
LOC: HO.US 09:13
PROVIDERS: PCP Internal Medicine; Visit Provider Internal Medicine Nephrology
DX: I10 Essential (primary) hypertension (principal)
CPT/HCPCS: 76775; 93975

== ENCOUNTER → 2025-09-15 09:17 | Outpatient (BNV) | payer MEDICARE, MEDICAID, SELFPAY | PROVIDERS: PCP Internal Medicine; Visit Provider Radiology Diagnostic Ultrasound | DX: I10 Essential (primary) hypertension (principal) | CPT/HCPCS: 93975 ==

== ENCOUNTER 2025-09-16 12:02 | Outpatient (REF) | payer MEDICARE, MEDICAID, SELFPAY ==
--- OUTSIDE RECORDS SUMMARY | 2025-09-16 14:07 | XMS_ITS | Encounter Summary ---
Author Organization [employer] Address 75 [facility] 7 [place] [address] Care Team Providers Care Bee Robber Name Role Phone Viry Merino MD Primary Care Provider [phone] Reason for Visit * Reason Comments Med Refill Encounter Details Date Type Department Care Team ([facility] st Contact Info) Description 09/06/2025 Refill [facility] MED & PEDS [address] [place], [place] [phone] Viry Merino MD 505 [place] [address] Other hyperlipidemia Social History Tobacco Use Types [...] documented as of this encounter Care Teams Bee Robber Relationship Specialty Start Date End Date Viry Merino MD [address] [place] [address] PCP - General Internal Medicine 09/29/18 documented as of this encounter
--- OUTSIDE RECORDS SUMMARY | 2025-09-16 14:07 | XMS_ITS | Encounter Summary ---
Author Organization [employer] Address [address] [address] Care Team Providers Care Planting Machine Crewman Name Role Phone Viry Merino MD Primary Care Provider [phone] Reason for Referral * Imaging (Routine) - Closed Specialty Diagnoses / Procedures Referred By Ed khoury Referred To Contact Radiology Diagnoses Transaminitis Procedures US Abdomen Complete Viry Merino MD [address] [place] [address] Phone: tel: fax: [address] [address] Phone: tel: fax: Referral ID Status Reason Start Date Expiration Date Visits Re quested Visits Authorized [id number] Closed 03/10/2024 03/10/2025 1 1 Encounter Details Date Type Department Care Team (Late st Contact Info) Description 03/10/2024 Orders Only [facility] MED & PEDS 505 [place], [place] [phone] Viry Merino MD [address] [place], [place] [phone] Transaminitis (Primary Dx); Elevated blood sugar Social [...] AM EDT) Hemoglobin A1c 5.5 <6.0 % [facility] Comment:Hemoglobin A1C Refer ence Range Adults: 4.8 - 6.0 % Non diabetic: < 6.0 % Goal: < 7.0 %Additional Action Suggested: > 8.0 %Note: Hemoglobin A1c results are invalid for patients with abnormal amounts of HbF. Blood transfusions may impact the HbA1c concentration in the patient sample. Estimated Average Glucose 111 mg/dL [facility] Comment:eAG = Estimated ave rage glucose which is %A1C expressed asaverage glucose, using the formula of the M3W-DzkawehWrlaxhv Glucose study (ADAG), Diabetes Care, Vol.31,#8,Apr. 2007 Blood Venous blood specimen / Unknown 03/12/2024 8:34 AM EDT 03/12/2024 2:39 PM EDT us Viry Merino MD LAB BLOOD ORDERABLES Final Result [facility] [address] [place] [phone] * Basic Metabolic Panel (03/12/2024 8:34 AM EDT) Sodium 137 135 - 145 mmol/L [facility] Potassium 4.7 3.3 - 5.1 mmol/L [facility] Chloride 104 96 - 108 mmol/L [facility] Carbon Dioxide 25 22 - 29 mmol/L [facility] Anion Gap 13 12 - 20 [facility] Urea Nitrogen (BUN) 14 9 - 16 mg/dL [facility] Creatinine, Serum 0.87 0.5 - 1.4 mg/dL [facility] Estimated Glomerular Filt Rate >60 [facility] Comment:NOTE: For -Am erican individuals, multiply the result by 1.210.Chronic Kidney Disease: Estimated GFR < 60 mL/min/1.96g7Gpmpns Kidney Disease: Estimated GFR < 15 mL/min/1.73m2 Glucose 88 60 - 115 mg/dL [facility] Calcium 9.4 8.4 - 10.2 mg/dL [facility] Blood Venous blood specimen / Unknown 03/12/2024 8:34 AM EDT 03/12/2024 2:39 PM EDT us Viry Merino MD LAB BLOOD ORDERABLES Final Result Performing Organization Address [facility] Co de Phone Number [facility] [address] [place] [phone] * Hepatitis A,B,C Profile (03/12/2024 8:34 AM EDT) Hepatitis A IgM Nonreactive Nonreactive [facility] Comment:IgM antibodies to SOTO V not detected; does not exclude earlyacute or recovered HAV infection. ~Hepatitis B Surface Antibody NONREACTIVE Nonreactive [facility] Comment:Nonreactive: < 8.00 mIU/mL Hepatitis B Core Antibody Nonreactive Nonreactive [facility] Hepatitis C Antibody Nonreactive Nonreactive [facility] Comment:Antibodies to HCV no t detected; does not exclude early acuteHCV infection. Hepatitis B Surface Ag Negative Negative [facility] Blood Venous blood specimen / Unknown 03/12/2024 8:34 AM EDT 03/12/2024 2:39 PM EDT us Viry Merino MD LAB BLOOD ORDERABLES Final Result Performing Organization Address [facility] de Phone Number [facility] [address] [place] [phone] documented in this encounter Visit Diagnoses Diagnosis Transaminitis- Primary Nonspecific elevation of levels of transaminase or lactic acid dehydrogenase (LDH) Elevated blood sugar Other abnormal glucose documented in this encounter Additional Health Concerns Assessment Noted Time PHQ-9 Depression Total Score: 1 12/24/19 23 10:32 AM EDT documented as of this encounter Care Teams Planting Machine Crewman Relationship Specialty Start Date End Date Viry Merino MD [address] [place] [phone] PCP - General Internal Medicine 09/29/18 documented as of this encounter
--- OUTSIDE RECORDS SUMMARY | 2025-09-16 14:07 | XMS_ITS | Clinical Summary ---
Author Organization [employer] Address [address] [facility] 7t [place] [address] Care Team Providers Care Lawnmower Mechanic Name Role Phone Viry Merino MD Primary Care Provider [phone] Allergies No known active allergies Medications Aspirin [...] an abrasion Case discussed with Dr. 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) (Primary Dx) 07/12/2025 Refill [facility] [address] [place] [address] Viry Merino MD Gastroesophageal reflux disease without esophagitis 06/27/2025 2:30 PM EDT Office Visit [facility] [address] [place] [address] Viry Merino MD Essential hypertension (Primary Dx); Tinea pedis of both feet; Transaminitis; Muscle spasm 06/27/2025 Travel 06/24/2025 Telephone [facility] [address] [place] [address] Viry Merino MD Chart Prep from Last [...] Name Priority Date/Time Associated Diagnosis Comments US RENAL DOPPLER Routine 09/15/2025 9:25 AM EST ALPHA FETOPROTEIN, TUMOR MARKER Routine 09/14/2025 10:00 AM EST CERULOPLASMIN Routine 09/14/2025 10:00 AM [...] Relevant to Health Maintenance Results * US RENAL DOPPLER (09/15/2025 9:25 AM EST) Anatomical Region Laterality Modality Abdomen Ultrasound 09/15/2025 9:25 AM EST Narrative 09/15/2025 4:23 PM EST [address] [address] Ultrasound Report Signed Patient: Ja Rowe MR#: [id number] : 1960 Acct:[id number] Age/Sex: 65 / M ADM Date: 09/15/25 Loc: HO.US Attending Dr: Charles Amato MD Ordering Physician: Charles Amato MD Date of Service: 09/15/25 Procedure(s): US renal doppler Accession Number(s): [id number] cc: Viry Merino MD; Charles Amato MD Reason for Exam: I10 - Essential (primary) hypertension EXAMINATION: ULTRASOUND RENAL WITH DOPPLER CLINICAL INFORMATION: Essentially hypertension. Rule out renal artery stenosis COMPARISON: Ultrasound abdomen 06/07/2025 TECHNIQUE: Real-time grayscale, color Doppler, and duplex Doppler evaluation of the kidneys and renal vasculature was performed. FINDINGS: RENAL MEASUREMENTS: Right: 11.4 x 5.9 x 6 cm (Sag x AP x TV) Left: 11.5 x 5.2 x 6 cm (Sag x AP x TV) The renal parenchyma appears normal. No hydronephrosis or nephrolithiasis. DOPPLER INTERROGATION: Aorta: 84.3 cm/sec Right Main Renal Artery: Proximal: Not visualized Mid: 68.8 cm/sec Distal: 0.93 cm/sec Left Main Renal Artery: Proximal: 152 cm/sec Mid: 1:30 cm/sec Distal: 75 cm/sec Renal-Aortic Ratio (RAR): Right: 0.93 Left: 1.8 Segmented RI: Right upper: 0.57 Mid: 0.57 LP::0.6 Left upper: 0.63 Mid: 0.72 LP:0.67 Bilateral renal veins are patent. US/US renal doppler IMPRESSION: Doppler ultrasound measurements of bilateral renal arteries are within normal limits. The peak systolic velocity and resistive index measurements are within normal limits. Electronically signed by: Vipin Eisenberg MD 09/15/2025 04:20 PM [facility] Dictated By: Vipin Eisenberg MD Signed By: <Electronically signed by Vipin Eisenberg MD in OV> 09/15/25 1620 DD/ 0925 TD/TT: 09/15/25 1013 Cat Wagon Operator: Procedure Note Donotuseinterpreter, Image - 09/15/[address] [address] Ultrasound Report Signed Patient: Ja RoweMR#: [id number] : 1960Acct:[id number] Age/Sex: 65 / MADM Date: 09/15/25 Loc: HO.US Attending Dr: Charles Amato MD Ordering Physician: Charles Amato MD Date of Service: 09/15/25 Procedure(s): US renal doppler Accession Number(s): [id number] cc: Viry Merino MD; Charles Amato MD Reason for Exam: I10 - Essential (primary) hypertension EXAMINATION: ULTRASOUND RENAL WITH DOPPLER CLINICAL INFORMATION: Essentially hypertension. Rule out renal artery stenosis COMPARISON: Ultrasound abdomen 06/07/2025 TECHNIQUE: Real-time grayscale, color Doppler, and duplex Doppler evaluation of the kidneys and renal vasculature was performed. FINDINGS: RENAL MEASUREMENTS: Right: 11.4 x 5.9 x 6 cm (Sag x AP x TV) Left: 11.5 x 5.2 x 6 cm (Sag x AP x TV) The renal parenchyma appears normal. No hydronephrosis or nephrolithiasis. DOPPLER INTERROGATION: Aorta: 84.3 cm/sec Right Main Renal Artery: Proximal: Not visualized Mid: 68.8 cm/sec Distal: 0.93 cm/sec Left Main Renal Artery: Proximal: 152 cm/sec Mid: 1:30 cm/sec Distal: 75 cm/sec Renal-Aortic Ratio (RAR): Right: 0.93 Left: 1.8 Segmented RI: Right upper: 0.57 Mid: 0.57 LP::0.6 Left upper: 0.63 Mid: 0.72 LP:0.67 Bilateral renal veins are patent. US/US renal doppler IMPRESSION: Doppler ultrasound measurements of bilateral renal arteries are within normal limits. The peak systolic velocity and resistive index measurements are within normal limits. Electronically signed by: Vipin Eisenberg MD 09/15/2025 04:20 PM EST Dictated By: Vipin Eisenberg MD Signed By: <Electronically signed by Vipin Eisenberg MD in OV> 09/15/25 1620 DD/ 0925 TD/TT: 09/15/25 1013 Cat Wagon Operator: SCAR us [facility] External Provider IMG US PROCEDURES Final Result * TSH with Reflex to Free T4 (09/14/2025 10:00 AM EST) TSH reflex Free T4 1.18 0.32 - 4.0 uIU/mL [facility] 09/14/2025 10:0 0 AM EST 09/14/2025 2:03 PM EST Generic External Data Provider LAB BLOOD ORDERAB LES Final Result [facility] [address] [place] [phone] * HIV-1/2 Antigen and Antibodies, Fourth Generation, with Reflexes (09/14/2025 10:00 AM EST) [facility] HIV AB/AG Nonreactive Nonreactive [facility] Comment:HIV-1 p24 Ag and/or HIV-1/HIV-2 Ab not detected.A test result that is nonreactive does not exclude thepossibility of exposure to or infection with HIV-1 and/orHIV-2. Nonreactive results in this assay for individualswith prior exposure to HIV-1 and/or HIV-2 may be due toantigen and antibody levels that are below the limit ofdetection of this assay.The [employer] HIV Ag/Ab Combo assay result andsupplemental assay results should be interpreted inconjunction with the patient's clinical presentation,history and other laboratory results. If the results areinconsistent with clinical evidence, additional testing issuggested to confirm the result. 09/14/2025 10:0 0 AM EST 09/14/2025 2:07 PM EST us Generic External Data Provider LAB BLOOD ORDERAB LES Final Result [facility] [address] [place] [address] [phone] * Ferritin (09/14/2025 10:00 AM EST) Pathologist [facility] Ferritin 54 20 - 250 ng/mL [facility] 09/14/2025 10:0 0 AM EST 09/14/2025 2:03 PM EST Generic External Data Provider LAB BLOOD ORDERAB LES Final Result Performing Organization Address [facility] Phone Number [facility] [address] [place] [phone] * Hepatic Function Panel (09/14/2025 10:00 AM EST) Bilirubin, Total 0.7 0.0 - 1.0 mg/dL [facility] Bilirubin, Direct 0.3 0.0 - 0.5 mg/dL [facility] Aspartate Amino Transferase 33 5 - 37 U/L [facility] Alanine Aminotransferase 37 0 - 40 U/L [facility] Total Protein 7.1 6.5 - 8.0 g/dL [facility] Albumin Level 4.2 3.5 - 5.0 g/dL [facility] Alkaline Phosphatase 80 39 - 117 U/L [facility] 09/14/2025 10:0 0 AM EST 09/14/2025 2:03 PM EST Generic External Data Provider LAB BLOOD ORDERAB LES Final Result Performing Organization Address [facility] Phone Number [facility] [address] [place] [phone] * (ABNORMAL) Lipid Panel, Standard (04/11/2025 8:09 AM EDT) Triglycerides 205(H) <150 mg/dL [facility] Comment:Desirable Triglyceri de: less than 150 mg/dLBorderline High Triglyceride 150-199 mg/dLHigh Triglyceride: 200-499 mg/dLVery High Triglyceride: greater than or equal to 5OO mg/dL Cholesterol 150 <200 mg/dL [facility] Comment:Desirable Cholestero l: less than 200 mg/dLBorderline High Cholesterol: 200-239 mg/dLHigh Cholesterol: greater than 239 mg/dL LDL Cholesterol Calculated 74 <100 mg/dL [facility] Comment:Desirable LDL: less than 100 mg/dLNear Optimal/Above Optimal LDL: 110- 129 mg/dLBorderline High LDL: 130-159 mg/dLHigh LDL: 160-189 mg/dLVery High LDL: greater than or equal to 190 mg/dL HDL Cholesterol 35(L) >40 mg/dL [facility] Comment:Desirable HDL: great er than 40 mg/dL Note: This HDL assay may give artificially low results in patients with liver disease. Blood Venous blood specimen / Unknown 04/11/2025 8:09 AM EDT 04/11/2025 3:28 PM EDT us Viry Merino MD LAB BLOOD ORDERABLES Final Result Performing Organization Address [facility] de Phone Number [facility] [address] [place] [phone] * Hepatitis A,B,C Profile (03/12/2024 8:34 AM EDT) Hepatitis A IgM Nonreactive Nonreactive [facility] Comment:IgM antibodies to SOTO V not detected; does not exclude earlyacute or recovered HAV infection. ~Hepatitis B Surface Antibody NONREACTIVE Nonreactive [facility] Comment:Nonreactive: < 8.00 mIU/mL Hepatitis B Core Antibody Nonreactive Nonreactive [facility] Hepatitis C Antibody Nonreactive Nonreactive [facility] Comment:Antibodies to HCV no t detected; does not exclude early acuteHCV infection. Hepatitis B Surface Ag Negative Negative [facility] Blood Venous blood specimen / Unknown 03/12/2024 8:34 AM EDT 03/12/2024 2:39 PM EDT us Viry Merino MD LAB BLOOD ORDERABLES Final Result Performing Organization Address [facility] Co de Phone Number [facility] [address] [place] [phone] from Last 3 Months or Most Recently Relevant to Health Maintenance [place] [address] [place] [address] MEDICARE ADVANTAGE HMO Care Teams Lawnmower Mechanic Relationship Specialty Start Date End Date Viry Merino MD [address] [place] [phone] PCP - General Internal Medicine 09/29/18
--- OUTSIDE RECORDS SUMMARY | 2025-09-16 14:07 | XMS_ITS | Encounter Summary ---
Author Organization [employer] Address [address] [facility] 7t [place] [address] Care Team Providers Care Operations Officer Afloat Name Role Phone Viry Merino MD Primary Care Provider [phone] Encounter Details Date Type Department Care Team ([facility] Contact Info) Description 09/14/2025 Orders Only GENERIC [...] Ceruloplasmin Lab Routine 09/14/2025 10:00 AM EST Alpha-Fetoprotein, Tumor Marker Lab Routine 09/14/2025 10:00 AM EST documented as of this encounter Procedures Procedure Name Priority Date/Time Associated Diagnosis Comments US RENAL DOPPLER Routine 09/15/2025 9:25 AM EST TSH W/REFLEX TO FT4 Routine 09/14/2025 1 0:00 AM EST CERULOPLASMIN Routine 09/14/2025 10:00 AM EST ALPHA FETOPROTEIN, TUMOR MARKER Routine 09/14/2025 10:00 AM EST HIV 1/2 ANTIGEN/ANTIBODY, FOURTH GENERATION W/RFL Routine 09/14/2025 10:00 AM EST FERRITIN Routine 09/14/2025 10:00 AM EST HEPATIC FUNCTION PANEL Routine 10:00 AM EST documented in this encounter Results * US RENAL DOPPLER (09/15/2025 9:25 AM EST) Anatomical Region Laterality Modality Abdomen Ultrasound 09/15/2025 9:25 AM EST Narrative 09/15/2025 4:23 PM EST [place] [address] Ultrasound Report Signed Patient: Ja Rowe MR#: [id number] : 1960 Acct:[id number] Age/Sex: 65 / M ADM Date: 09/15/25 Loc: HO.US Attending Dr: Charles Amato MD Ordering Physician: Charles Amato MD Date of Service: 09/15/25 Procedure(s): US renal doppler Accession Number(s): [id number] cc: Viry Merino MD; Charles Amato MD [...] by: Vipin Eisenberg MD 09/15/2025 04:20 PM [facility] Dictated By: Vipin Eisenberg MD Signed By: <Electronically signed by Vipin Eisenberg MD in OV> 09/15/25 1620 DD/ 0925 TD/TT: 09/15/25 1013 Sheet Metal Helper: SCAR Procedure Note Donotuseinterpreter, Image - 09/15/2025 [place] [address] Ultrasound Report Signed Patient: Ja Rowe#: [id number] : 1960Acct:[id number] Age/Sex: 65 / MADM Date: 09/15/25 Loc: .US Attending Dr: Charles Amato MD Ordering Physician: Charles Amato MD Date of Service: 09/15/25 Procedure(s): US renal doppler Accession Number(s): [id number] cc: Viry Merino MD; Charles Amato MD [...] by: Vipin Eisenberg MD 09/15/2025 04:20 PM [facility] Dictated By: Vipin Eisenberg MD Signed By: <Electronically signed by Vipin Eisenberg MD in OV> 09/15/25 1620 DD/ 0925 TD/TT: 09/15/25 1013 Sheet Metal Helper: SCAR us [facility] External Provider IMG US PROCEDURES Final Result * HIV-1/2 Antigen and Antibodies, Fourth Generation, with Reflexes (09/14/2025 10:00 AM EST) Pathologist [facility] HIV AB/AG Nonreactive Nonreactive [facility] Comment:HIV-1 p24 Ag and/or HIV-1/HIV-2 Ab not detected.A test result that is nonreactive does not exclude thepossibility of exposure to or infection with HIV-1 and/orHIV-2. Nonreactive results in this assay for individualswith prior exposure to HIV-1 and/or HIV-2 may be due toantigen and antibody levels that are below the limit ofdetection of this assay.The [employer] HIV Ag/Ab Combo assay result andsupplemental assay results should be interpreted inconjunction with the patient's clinical presentation,history and other laboratory results. If the results areinconsistent with clinical evidence, additional testing issuggested to confirm the result. 09/14/2025 10:0 0 AM EST 09/14/2025 2:07 PM EST us Generic External Data Provider LAB BLOOD ORDERAB LES Final Result [facility] [address] [place] [phone] * TSH with Reflex to Free T4 (09/14/2025 10:00 AM EST) Pathologist [facility] TSH reflex Free T4 1.18 0.32 - 4.0 uIU/mL [facility] 09/14/2025 10:0 0 AM EST 09/14/2025 2:03 PM EST us Generic External Data Provider LAB BLOOD ORDERAB LES Final Result Performing Organization Address [facility] Co de Phone Number [facility] [address] [place] [phone] * Ferritin (09/14/2025 10:00 AM EST) Pathologist [facility] Ferritin 54 20 - 250 ng/mL [facility] 09/14/2025 10:0 0 AM EST 09/14/2025 2:03 PM EST us Generic External Data Provider LAB BLOOD ORDERAB LES Final Result Performing Organization Address [facility] Co de Phone Number [facility] [address] [place] [address] [phone] * Hepatic Function Panel (09/14/2025 10:00 AM EST) Bilirubin, Total 0.7 0.0 - 1.0 mg/dL [facility] Bilirubin, Direct 0.3 0.0 - 0.5 mg/dL [facility] Aspartate Amino Transferase 33 5 - 37 U/L [facility] Alanine Aminotransferase 37 0 - 40 U/L [facility] Total Protein 7.1 6.5 - 8.0 g/dL [facility] Albumin Level 4.2 3.5 - 5.0 g/dL [facility] Alkaline Phosphatase 80 39 - 117 U/L [facility] 09/14/2025 10:0 0 AM EST 09/14/2025 2:03 PM EST Generic External Data Provider LAB BLOOD ORDERAB LES Final Result Performing Organization Address [facility] de Phone Number [facility] [address] [place] [phone] documented in this encounter Visit Diagnoses Not on filedocumented in this encounter Additional Health Concerns Assessment Noted Time PHQ-9 Depression Total Score: 2 06/27/20 25 3:21 PM EDT documented as of this encounter Care Teams Operations Officer Afloat Relationship Specialty Start Date End Date Viry Merino MD [address] [place] [phone] PCP - General Internal Medicine 09/29/18 documented as of this encounter
--- OUTSIDE RECORDS SUMMARY | 2025-09-16 14:07 | XMS_ITS | Encounter Summary ---
Author Organization [employer] Address [address] [facility] [address] [place] [address] Care Team Providers Care Brick Machine Operator Name Role Phone Viry Merino MD Primary Care Provider [phone] Encounter Details Date Type Department Care Team ([facility] st Contact Info) Description 01/30/2023 Orders Only [facility] MED & PEDS [address] [place] [address] Randa Briscoe LPN Social History Tobacco Use [...] documented as of this encounter Care Teams Brick Machine Operator Relationship Specialty Start Date End Date Viry Merino MD [address] [place] [address] PCP - General Internal Medicine 09/29/18 documented as of this encounter
--- OUTSIDE RECORDS SUMMARY | 2025-09-16 14:07 | XMS_ITS | Encounter Summary ---
Author Organization [employer] Address [address] [address] Care Team Providers Care Mineral Economist Name Role Phone Viry Merino MD Primary Care Provider [phone]- [phone] Encounter Details Date Type Department Care Team (Late st Contact Info) Description 12/13/2022 Orders Only [facility] [address] [place], [place] [phone] Viry Merino MD [address] [place], [place] [phone] Social History Tobacco Use Types Packs/Day Years [...] on filedocumented in this encounter Care Teams Mineral Economist Relationship Specialty Start Date End Date Viry Merino MD [address] [place] [address] PCP - General Internal Medicine 09/29/18 documented as of this encounter
--- OUTSIDE RECORDS SUMMARY | 2025-09-16 14:07 | XMS_ITS | Encounter Summary ---
Author Organization [employer] Address 75 [facility] 7t [place] [address] Care Team Providers Care Black Jack Dealer Name Role Phone Viry Merino MD Primary Care Provider [phone] Encounter Details Date Type Department Care Team ([facility] st Contact Info) Description 07/15/2025 Orders Only [facility] MED & PEDS [address] [place], [place] [phone] Viry Merino MD [address] [place] [address] Weakness of muscle of right side of [...] documented as of this encounter Care Teams Black Jack Dealer Relationship Specialty Start Date End Date Viry Merino MD [address] [place] [phone] PCP - General Internal Medicine 09/29/18 documented as of this encounter
--- OUTSIDE RECORDS SUMMARY | 2025-09-16 14:07 | XMS_ITS | Encounter Summary ---
Author Organization [employer] Address 75 [facility] 7 [place] [address] Care Team Providers Care Second Chef Name Role Phone Viry Merino MD Primary Care Provider [phone]- [phone] Encounter Details Date Type Department Care Team (Late st Contact Info) Description 04/02/2023 Orders Only [facility] MEDICINE [address] [place] [address] Gracie Munguia LPN Social History Tobacco Use [...] documented as of this encounter Care Teams Second Chef Relationship Specialty Start Date End Date Viry Merino MD [address] [place] [address] PCP - General Internal Medicine 09/29/18 documented as of this encounter
--- OUTSIDE RECORDS SUMMARY | 2025-09-16 14:07 | XMS_ITS | Encounter Summary ---
Author Organization [employer] Address 75 [facility] 7 [place] [address] Care Team Providers Care Vallez Filter Operator Name Role Phone Viry Merino MD Primary Care Provider [phone]- [phone] Encounter Details Date Type Department Care Team ([facility] st Contact Info) Description 06/04/2023 Orders Only [facility] MED & PEDS [address] [place] [address] Maru Durbin LPN Social History Tobacco Use [...] documented as of this encounter Care Teams Vallez Filter Operator Relationship Specialty Start Date End Date Viry Merino MD [address] [place] [address] PCP - General Internal Medicine 09/29/18 documented as of this encounter
--- OUTSIDE RECORDS SUMMARY | 2025-09-16 14:07 | XMS_ITS | Encounter Summary ---
Author Organization [employer] Address [address] [facility] 7 [place] [address] Care Team Providers Care Auto Crane Driver Name Role Phone Viry Merino MD Primary Care Provider [phone] Reason for Visit * Reason Comments Med Refill Encounter Details Date Type Department Care Team ([facility] st Contact Info) Description 03/25/2024 Refill [facility] MED & PEDS [address] [place], [place] [phone] Viry Merino MD [address] [place] [address] Seasonal allergic rhinitis due to other allergic [...] documented as of this encounter Care Teams Auto Crane Driver Relationship Specialty Start Date End Date Viry Merino MD [address] [place] [address] PCP - General Internal Medicine 09/29/18 documented as of this encounter
--- OUTSIDE RECORDS SUMMARY | 2025-09-16 14:08 | XMS_ITS | Encounter Summary ---
Author Organization [employer] Address 75 [facility] 7 [place] [address] Care Team Providers Care Data Center Manager Name Role Phone Viry Merino MD Primary Care Provider [phone] Reason for Visit * Reason Comments Med Refill Encounter Details Date Type Department Care Team ([facility] st Contact Info) Description 02/26/[address] [facility] MED & PEDS [address] [place], [place] [phone] Viry Merino MD [address] [place] [address] Social History Tobacco Use Types Packs/Day Years [...] as of this encounter Care Teams Data Center Manager Relationship Specialty Start Date End Date Viry Merino MD [address] [place] [phone] PCP - General Internal Medicine 09/29/18 documented as of this encounter
--- OUTSIDE RECORDS SUMMARY | 2025-09-16 14:08 | XMS_ITS | Encounter Summary ---
Author Organization [employer] Address 75 [facility] 7 [place] [address] Care Team Providers Care Orthophoto Tech/Draftsman Name Role Phone Viry Merino MD Primary Care Provider [phone] Reason for Visit * Reason Comments Med Refill Encounter Details Date Type Department Care Team ([facility] st Contact Info) Description 01/02/2024 Refill [facility] CHC MED & PEDS [address] [place], [place] [phone] Viry Merino MD [address] [place] [address] Social History Tobacco Use Types Packs/Day Years [...] documented as of this encounter Care Teams Orthophoto Tech/Draftsman Relationship Specialty Start Date End Date Viry Merino MD [address] [place] [phone] PCP - General Internal Medicine 09/29/18 documented as of this encounter
--- OUTSIDE RECORDS SUMMARY | 2025-09-16 14:08 | XMS_ITS | Encounter Summary ---
Author Organization [employer] Address 75 [facility] 7 [place] [address] Care Team Providers Care Pottery Kiln Builder Name Role Phone Viry Merino MD Primary Care Provider [phone] Reason for Visit * Reason Comments Med Refill Encounter Details Date Type Department Care Team ([facility] st Contact Info) Description 01/02/2024 Refill [facility] CHC MED & PEDS [address] [place], [place] [phone] Viry Merino MD [address] [place] [address] Social History Tobacco Use Types Packs/Day Years [...] documented as of this encounter Care Teams Pottery Kiln Builder Relationship Specialty Start Date End Date Viry Merino MD [address] [place] [phone] PCP - General Internal Medicine 09/29/18 documented as of this encounter
--- OUTSIDE RECORDS SUMMARY | 2025-09-16 14:08 | XMS_ITS | Encounter Summary ---
Author Organization [employer] Address 75 [facility] 7t [place] [address] Care Team Providers Care Rag Washer Name Role Phone Viry Merino MD Primary Care Provider [phone] Reason for Visit * Reason Comments Med Refill Encounter Details Date Type Department Care Team ([facility] st Contact Info) Description 08/30/2024 Refill [facility] MED & PEDS [address] [place], [place] [phone] Prabha Allison MD 505 [place] [address] Social History Tobacco Use Types Packs/Day Years [...] documented as of this encounter Care Teams Rag Washer Relationship Specialty Start Date End Date Viry Merino MD [address] [place] [address] PCP - General Internal Medicine 09/29/18 documented as of this encounter
--- OUTSIDE RECORDS SUMMARY | 2025-09-16 14:08 | XMS_ITS | Encounter Summary ---
Author Organization [employer] Address 75 [facility] 7 [place] [address] Care Team Providers Care Dimension Specification Inspector Name Role Phone Viry Merino MD Primary Care Provider [phone] Reason for Visit * Reason Comments Med Refill Encounter Details Date Type Department Care Team ([facility] st Contact Info) Description 07/04/2023 Refill [facility] CH[facility] MED & PEDS 505 [place], [place] [phone] Viry Merino MD 505 [place] [address] Social History Tobacco Use Types Packs/Day Years [...] documented as of this encounter Care Teams Dimension Specification Inspector Relationship Specialty Start Date End Date Viry Merino MD [address] [place] [address] PCP - General Internal Medicine 09/29/18 documented as of this encounter
--- OUTSIDE RECORDS SUMMARY | 2025-09-16 14:08 | XMS_ITS | Encounter Summary ---
Author Organization [employer] Address 75 [facility] [address], [place] [address] Care Team Providers Care Mig Tig Welder Name Role Phone Viry Merino MD Primary Care Provider [phone] Reason for Referral * Consultation (Routine) - Closed Specialty Diagnoses / Procedures Referred By Ed khoury Referred To Contact Nephrology Diagnoses Abnormal finding on diagnostic imaging of kidney Viry Merino MD 505 [place] [address] Phone: tel: fax: Charles Amato MD [address] [place] [address] Phone: tel: fax: Referral ID Status Reason Start Date Expiration Date V isits Requested Visits Authorized [id number] Closed Specialty Services Required 06/07/2025 06/07/2026 1 1 * Consultation (Routine) - Authorized Specialty Diagnoses / Procedures Referred By Ed khoury Referred To Contact Gastroenterology Diagnoses Transaminitis Viry Merino MD [address] [place] [address] Phone: tel: fax: Olga Willoughby MD [address] [place] [address] Phone: tel: fax: Referral ID Status Reason Start Date Expiration Date Visits Requested Visits Authorized [id number] Authorized Specialty Services Required 06/07/2025 06/07/2026 1 1 Encounter Details Date Type Department Care Team (Late st Contact Info) Description 06/07/2025 Orders Only [facility] CHC MED & PEDS 505 [place] [address] Viry Merino MD 505 [place] [address] Transaminitis (Primary Dx); Abnormal finding on diagnostic [...] documented as of this encounter Care Teams Mig Tig Welder Relationship Specialty Start Date End Date Viry Merino MD [address] [place] [address] PCP - General Internal Medicine 09/29/18 documented as of this encounter
--- OUTSIDE RECORDS SUMMARY | 2025-09-16 14:08 | XMS_ITS | Encounter Summary ---
Author Organization [employer] Address 75 [facility] 7 [place] [address] Care Team Providers Care Waffle Machine Operator Name Role Phone Viry Merino MD Primary Care Provider [phone]- [phone] Reason for Visit * Reason Onset Date Comments Nurse Triage 03/08/2024 Encounter Details Date Type Department Care Team ([facility] st Contact Info) Description 03/08/2024 Telephone [facility] MED & PEDS 505 [place] [address] Viry Merino MD 505 [place] [address] Nurse Triage Social History Tobacco Use Types [...] t he electric, gas, oil or water [employer] threatened to shut off services in your [...] 03/08/2024 4:44 PM EDT Triage call with [employer]a [employer] [place] Operator ID [id number] Pt reports rash that is wide spread. Pt reports redness with hive like spots, itchy, not bump or smooth, no blisters. Pt was seen in office 03/01/24 with dx of viral syndrome . Denies difficulty breathing, fever. Home care reviewed Apt with MICHELLE Marx 03/12/24 @ 315pm [facility]. Pt agrees with disposition and home [...] documented as of this encounter Care Teams Waffle Machine Operator Relationship Specialty Start Date End Date Viry Merino MD 505 [place] [address] PCP - General Internal Medicine 09/29/18 documented as of this encounter
--- OUTSIDE RECORDS SUMMARY | 2025-09-16 14:08 | XMS_ITS | Encounter Summary ---
Author Organization [employer] Address 75 [facility] 7 [place] [address] Care Team Providers Care Glass Products Inspector Name Role Phone Viry Merino MD Primary Care Provider [phone] Encounter Details Date Type Department Care Team ([facility] st Contact Info) Description 05/14/2024 Orders Only [facility] CHC MED & PEDS 505 [place], [place] [phone] Viry Merino MD 505 [place] [address] Social History Tobacco Use Types Packs/Day Years [...] documented as of this encounter Care Teams Glass Products Inspector Relationship Specialty Start Date End Date Viry Merino MD 505 [place] [address] PCP - General Internal Medicine 09/29/18 documented as of this encounter
--- OUTSIDE RECORDS SUMMARY | 2025-09-16 14:08 | XMS_ITS | Clinical Summary ---
Author Organization [employer] [facility] ity Address [address] [place] [address] Care Team Providers Care Backup Administrator Name Role Phone Unavailable Primary Care Provider [...]
--- OUTSIDE RECORDS SUMMARY | 2025-09-16 14:08 | XMS_ITS | Encounter Summary ---
Author Organization [employer] Address 75 [facility] 7 [place] [address] Care Team Providers Care Precinct Commanding Officer Name Role Phone Viry Merino MD Primary Care Provider [phone]- [phone] Reason for Visit * Reason Onset Date Comments Results 03/08/2024 Encounter Details Date Type Department Care Team ([facility] st Contact Info) Description 03/08/2024 Telephone [facility] CHC MED & PEDS 505 [place] [address] Viry Merino MD 505 [place] [address] Results Social History Tobacco Use Types Packs/Day [...] ABD US yesterday and was [place] [facility] [place] [place] [facility] [place] to PCP office. Pt was informed that [facility] [place] about [...] results: labs Date when done: 03/04/24 Facility: [facility] documented in this encounter Plan of Treatment Not on file documented as of this encounter Visit Diagnoses Not on filedocumented in this encounter Additional Health Concerns Assessment Noted Time PHQ-9 Depression Total Score: 1 12/24/19 23 10:32 AM EDT documented as of this encounter Care Teams Precinct Commanding Officer Relationship Specialty Start Date End Date Viry Merino MD 505 [place] [address] PCP - General Internal Medicine 09/29/18 documented as of this encounter
[2025-09-16 15:13] LABS: Appearance Urine Clear; Glucose Urine UA Negative (Negative); PH 6.5 (5.0-9.0); Specific Gravity - Urine 1.015 (1.005-1.025)
== END 2025-09-16 12:03 | disposition home or self-care (01) ==
LOC: HO.HKASLDS 12:02
PROVIDERS: PCP Internal Medicine; Visit Provider Internal Medicine Nephrology
DX: I10 Essential (primary) hypertension (principal)
CPT/HCPCS: 81003

== ENCOUNTER 2025-09-20 14:59 | Outpatient (AMB) | payer MEDICARE, MEDICAID, SELFPAY ==
--- NOTE | 2025-09-20 15:33 | HO.NEPHOV ---
Vital Signs 09/20/25 15:34 Height 5 ft 8 in Weight 220 lb BMI 33.4 BP 110/70 Blood Pressure Location Lt brachial Position Sitting Pulse 72 Pulse Source Pulse Oximeter Pulse Oximetry (%) 97 Oxygen Delivery Method Room Air Intake Visit Reasons: 2mnth-Conf Television Servicer Required: Yes Television Servicer Name: Christian Justice53 Accompanied by: Self / Same As Patient Allergies No Known Allergies Allergy (Verified 09/13/25 15:01) HPI Comments Details: I had the pleasure of seeing Ja in follow up . He is known to have hypertension, CVA as well as RAMÍREZ needing CPAP. 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 His blood pressure is currently well controlled on current medication regimen. He has no history of drug use and denied proteinuria or retinopathy. He denies shortness of breath, PND, orthopnea, pedal edema or orthostatic symptoms. He does not take any excessive nonsteroidal anti-inflammatories. He feels well. His renal functions by blood work are normal. He is tolerating ELSY inhibitor. [facility] Medical History Nummular atopic dermatitis in adult Left leg pain Rash and nonspecific skin eruption Irritation of right eye Tinea pedis of both feet Elevated cholesterol GERD (gastroesophageal reflux disease) HTN (hypertension) Scottish speaking patient Sleep apnea CVA (cerebral vascular accident) Surgical History Hx of colonoscopy Family History Father Myocardial infarction Colon cancer HTN (hypertension) Mother Coronary artery disease HTN (hypertension) Diabetes mellitus Hyperlipidemia Paternal Uncle Liver cancer Colon cancer Paternal Grandmother Myocardial infarction Heart disease Family/Other Diabetes mellitus HTN (hypertension) Son Asthma Bipolar 1 disorder ADHD Social History Alcohol intake: current Alcohol intake frequency: does not drink Patient Tobacco Use Status: Never used Tobacco Review of Systems Const All systems reviewed & are unremarkable except as noted in HPI and below Physical Exam Vital Signs: Last Vital Signs Pulse 72 09/20/25 15:34 BP 110/70 09/20/25 15:34 Pulse Ox 97 09/20/25 15:34 Oxygen Delivery Method Room Air 09/20/25 15:34 BMI result Body Mass Index 33.4 Const General: comfortable and no acute distress Orientation/consciousness: patient oriented x3 HEENT Head: Yes normocephalic Mouth: Normal oral and palatal mucosa present Eyes EOM: EOMs intact bilaterally Neck Neck: Yes supple Resp Auscultation: clear to auscultation bilaterally Cardio Jugular venous distension: no JVD Rate: regular rate GI Palpation (GI): Soft to palpation Auscultation: normal bowel sounds General: Yes no CVA tenderness Back/Spine/Pelvis Back: no CVA tenderness Skin General skin exam: no rashes or lesions noted Neuro General: patient oriented x3 and moves all extremities Extrem General: Yes no pedal edema Results Reviewed Nephrology Results: Urine Protein, (Neg-Trace) Negative mg/dL 09/16/25 Renal US 09/15/25 Assessment & Plan Assessment & Plan (1) Hypertension: Code(s): I10 - Essential (primary) hypertension Category: Medical Qualifiers: Hypertension type: primary hypertension Qualified Code(s): I10 - Essential (primary) hypertension Plan Ja has longstanding hypertension as well as history of CVA. He most likely has underlying vascular disease. Doppler renal arteries did not show any AGUILAR. He denies any peripheral arterial symptoms. His urine was negative for protein. He is tolerating ELSY inhibitor. His blood pressure is currently at goal. His urine output is good. I did not make any medication changes today but shall continue to work him up in more detail based on upcoming data. Answered all questions and follow-up was given. Orders: Orders Blood Urea Nitrogen 6 Months I10 - Essential (primary) hypertension Electrolytes 6 Months I10 - Essential (primary) hypertension Protein Creatinine Ratio, Ur 6 Months I10 - Essential (primary) hypertension Creatinine 6 Months I10 - Essential (primary) hypertension Coding Level of Care Code Est Pt Level 4 (30841) Diagnoses Primary hypertension I10 Hypertension type: primary hypertension
[2025-09-20 15:34] VITALS: BP 110/70; PULSE 72; O2SAT 97; BMI 33.4
--- OUTSIDE RECORDS SUMMARY | 2025-09-20 16:15 | XMS_ITS | Encounter Summary ---
Author Organization [employer] Address 75 [facility] 7 [place] [address] Care Team Providers Care Comb Setter Name Role Phone Viry Merino MD Primary Care Provider [phone]- [phone] Encounter Details Date Type Department Care Team (Late st Contact Info) Description 04/02/2023 Orders Only [facility] [address] [place] [address] Gracie Munguia LPN Social History Tobacco Use [...] documented as of this encounter Care Teams Comb Setter Relationship Specialty Start Date End Date Viry Merino MD 505 [place] [address] PCP - General Internal Medicine 09/29/18 documented as of this encounter
--- OUTSIDE RECORDS SUMMARY | 2025-09-20 16:15 | XMS_ITS | Encounter Summary ---
Author Organization [employer] Address 75 [facility] 7t [place] [address] Care Team Providers Care Top Dyeing Machine Loader Name Role Phone Viry Merino MD Primary Care Provider [phone] Encounter Details Date Type Department Care Team ([facility] Contact Info) Description 09/16/2025 Orders Only GENERIC EXTERNAL DATA DEPARTMENT Provider, [...] on file documented as of this encounter Procedures Procedure Name Priority Date/Time Associated Diagnosis Comments URINALYSIS WITH REFLEX TO MICROSCOPIC Routine 09/16/2025 12:05 PM EST documented in this encounter Results * Urinalysis with Reflex to Microscopic (09/16/2025 12:05 PM EST) Color Urine Yellow [facility] Appearance Urine Clear [facility] PH 6.5 5.0 - 9.0 [facility] Glucose Urine UA Negative Negative mg/dL [facility] Urine Blood Negative Negative [facility] Specific [place] - Urine 1.015 1.005 - 1.025 [facility] Urine Protein Negative Neg-Trace mg/dL [facility] Urine Ketones Negative Negative mg/dL [facility] Nitrite Urine Negative Negative [facility] Leukocyte Esterase Urine Negative Negative [facility] 09/16/2025 12:0 5 PM EST 09/16/2025 2:59 PM EST us Generic External Data Provider LAB URINE ORDERAB LES Final Result [facility] [address] [place] [phone] [phone] documented in this encounter Visit Diagnoses Not on filedocumented in this encounter Additional Health Concerns Assessment Noted Time PHQ-9 Depression Total Score: 2 06/27/20 25 3:21 PM EDT documented as of this encounter Care Teams Top Dyeing Machine Loader Relationship Specialty Start Date End Date Viry Merino MD [address] [place] [address] PCP - General Internal Medicine 09/29/18 documented as of this encounter
--- OUTSIDE RECORDS SUMMARY | 2025-09-20 16:15 | XMS_ITS | Encounter Summary ---
Author Organization [employer] Address 75 [facility] 7t [place] [address] Care Team Providers Care Beeswax Bleacher Name Role Phone Viry Merino MD Primary Care Provider [phone]- [phone] Encounter Details Date Type Department Care Team ([facility] st Contact Info) Description 07/15/2025 Orders Only [facility] CHC MED & PEDS [address] [place], [place] [phone] Viry Merino MD 505 [place] [address] Weakness of muscle of right side of [...] documented as of this encounter Care Teams Beeswax Bleacher Relationship Specialty Start Date End Date Viry Merino MD [address] [place] [address] PCP - General Internal Medicine 09/29/18 documented as of this encounter
--- OUTSIDE RECORDS SUMMARY | 2025-09-20 16:15 | XMS_ITS | Encounter Summary ---
Author Organization [employer] Address 75 [facility] 7 [place] [address] Care Team Providers Care Publicity Agent Name Role Phone Viry Merino MD Primary Care Provider +1- [phone] Reason for Visit * Reason Comments Med Refill Encounter Details Date Type Department Care Team ([facility] st Contact Info) Description 09/06/2025 Refill [facility] CHC MED & PEDS [address] [place], [place] [phone] Viry Merino MD 505 [place] [address] Other hyperlipidemia Social History Tobacco Use Types [...] documented as of this encounter Care Teams Publicity Agent Relationship Specialty Start Date End Date Viry Merino MD [address] [place] [phone] PCP - General Internal Medicine 09/29/18 documented as of this encounter
--- OUTSIDE RECORDS SUMMARY | 2025-09-20 16:15 | XMS_ITS | Encounter Summary ---
Author Organization [employer] Address [address] [address] Care Team Providers Care Division Supervisor Name Role Phone Viry Merino MD Primary Care Provider +1- [phone] Encounter Details Date Type Department Care Team (Late st Contact Info) Description 12/13/2022 Orders Only [facility] [address] [place], [place] [phone] Viry Merino MD [address] [place], [place] [phone] Social History Tobacco Use Types Packs/Day Years [...] on filedocumented in this encounter Care Teams Division Supervisor Relationship Specialty Start Date End Date Viry Merino MD [address] [place] [address] PCP - General Internal Medicine 09/29/18 documented as of this encounter
--- OUTSIDE RECORDS SUMMARY | 2025-09-20 16:15 | XMS_ITS | Encounter Summary ---
Author Organization [employer] Address [address] [address] Care Team Providers Care Butcherette Name Role Phone Viry Merino MD Primary Care Provider [phone]- [phone] Reason for Referral * Imaging (Routine) - Closed Specialty Diagnoses / Procedures Referred By Ed khoury Referred To Contact Radiology Diagnoses Transaminitis Procedures US Abdomen Complete Viry Merino MD [address] [place] [address] Phone: tel: fax: [address] [phone] Phone: tel: fax: Referral ID Status Reason Start Date Expiration Date Visits Re quested Visits Authorized [id number] Closed 03/10/2024 03/10/2025 1 1 Encounter Details Date Type Department Care Team (Late st Contact Info) Description 03/10/2024 Orders Only [facility] CHC MED & PEDS [address] [place], [place] [phone] Viry Merino MD [address] [place], [place] [phone] Transaminitis (Primary Dx); Elevated blood sugar Social [...] AM EDT) Hemoglobin A1c 5.5 <6.0 % [facility] Comment:Hemoglobin A1C Refer ence Range Adults: 4.8 - 6.0 % Non diabetic: < 6.0 % Goal: < 7.0 %Additional Action Suggested: > 8.0 %Note: Hemoglobin A1c results are invalid for patients with abnormal amounts of HbF. Blood transfusions may impact the HbA1c concentration in the patient sample. Estimated Average Glucose 111 mg/dL [facility] Comment:eAG = Estimated ave rage glucose which is %A1C expressed asaverage glucose, using the formula of the [id number] Glucose study (ADAG), Diabetes Care, Vol.31,#8,Apr. 2007 Blood Venous blood specimen / Unknown 03/12/2024 8:34 AM EDT 03/12/2024 2:39 PM EDT us Viry Merino MD LAB BLOOD ORDERABLES Final Result [facility] [address] [place] [phone] * Basic Metabolic Panel (03/12/2024 8:34 AM EDT) Sodium 137 135 - 145 mmol/L [facility] Potassium 4.7 3.3 - 5.1 mmol/L [facility] Chloride 104 96 - 108 mmol/L [facility] Carbon Dioxide 25 22 - 29 mmol/L [facility] Anion Gap 13 12 - 20 [facility] Urea Nitrogen (BUN) 14 9 - 16 mg/dL [facility] Creatinine, Serum 0.87 0.5 - 1.4 mg/dL [facility] Estimated Glomerular Filt Rate >60 [facility] Comment:NOTE: For -Am erican individuals, multiply the result by 1.210.Chronic Kidney Disease: Estimated GFR < 60 mL/min/1.53u2Ftulpq Kidney Disease: Estimated GFR < 15 mL/min/1.73m2 Glucose 88 60 - 115 mg/dL [facility] Calcium 9.4 8.4 - 10.2 mg/dL [facility] Blood Venous blood specimen / Unknown 03/12/2024 8:34 AM EDT 03/12/2024 2:39 PM EDT us Viry Merino MD LAB BLOOD ORDERABLES Final Result Performing Organization Address [facility] Co de Phone Number [facility] [address] [place] [phone] * Hepatitis A,B,C Profile (03/12/2024 8:34 AM EDT) Hepatitis A IgM Nonreactive Nonreactive [facility] Comment:IgM antibodies to SOTO V not detected; does not exclude earlyacute or recovered HAV infection. ~Hepatitis B Surface Antibody NONREACTIVE Nonreactive [facility] Comment:Nonreactive: < 8.00 mIU/mL Hepatitis B Core Antibody Nonreactive Nonreactive [facility] Hepatitis C Antibody Nonreactive Nonreactive [facility] Comment:Antibodies to HCV no t detected; does not exclude early acuteHCV infection. Hepatitis B Surface Ag Negative Negative [facility] Blood Venous blood specimen / Unknown 03/12/2024 8:34 AM EDT 03/12/2024 2:39 PM EDT us Viry Merino MD LAB BLOOD ORDERABLES Final Result Performing Organization Address [facility] de Phone Number [facility] [address] [place] [phone] documented in this encounter Visit Diagnoses Diagnosis Transaminitis- Primary Nonspecific elevation of levels of transaminase or lactic acid dehydrogenase (LDH) Elevated blood sugar Other abnormal glucose documented in this encounter Additional Health Concerns Assessment Noted Time PHQ-9 Depression Total Score: 1 12/24/19 23 10:32 AM EDT documented as of this encounter Care Teams Butcherette Relationship Specialty Start Date End Date Viry Merino MD [address] [place] [address] PCP - General Internal Medicine 09/29/18 documented as of this encounter
--- OUTSIDE RECORDS SUMMARY | 2025-09-20 16:15 | XMS_ITS | Encounter Summary ---
Author Organization [email or web address] Address 75 [facility] 7 [place] [address] Care Team Providers Care Coding Manager Name Role Phone Viry Merino MD Primary Care Provider +1- [phone] Encounter Details Date Type Department Care Team ([facility] st Contact Info) Description 01/30/2023 Orders Only [facility] CHC MED & PEDS [address] [place] [address] Randa Briscoe LPN Social History Tobacco Use [...] documented as of this encounter Care Teams Coding Manager Relationship Specialty Start Date End Date Viry Merino MD 505 [place] [address] PCP - General Internal Medicine 09/29/18 documented as of this encounter
--- OUTSIDE RECORDS SUMMARY | 2025-09-20 16:15 | XMS_ITS | Encounter Summary ---
Author Organization [employer] Address 75 [facility] 7 [place] [address] Care Team Providers Care Jack Spinner Name Role Phone Viry Merino MD Primary Care Provider +1- [phone] Encounter Details Date Type Department Care Team ([facility] st Contact Info) Description 06/04/2023 Orders Only [facility] CHC MED & PEDS [address] [place] [address] Maru Durbin LPN Social History Tobacco Use [...] documented as of this encounter Care Teams Jack Spinner Relationship Specialty Start Date End Date Viry Merino MD 505 [place] [address] PCP - General Internal Medicine 09/29/18 documented as of this encounter
--- OUTSIDE RECORDS SUMMARY | 2025-09-20 16:15 | XMS_ITS | Clinical Summary ---
Author Organization [employer] Address [address] [facility] 7t [place] [address] Care Team Providers Care Batch Maker Name Role Phone Viry Merino MD Primary Care Provider [phone]- [phone] Allergies No known active allergies Medications Aspirin [...] an abrasion Case discussed with Dr. Thompson Research Scientist who will be seeing the patient later [...] Encounters Date Type Department Care Team Description 09/16/2025 Orders Only GENERIC EXTERNAL DATA DEPARTMENT Provider, Generic External Data 09/14/2025 Orders Only GENERIC EXTERNAL DATA DEPARTMENT Provider, Generic External Data 09/06/2025 Refill [facility] [address] [place] [address] Viry Merino MD Other hyperlipidemia 07/18/2025 Telephone [facility] [address] [place] [address] Viry Merino MD 07/17/2025 Refill [facility] [address] [place] [address] Viry Merino MD 07/15/2025 Orders Only [facility] [address] [place] [address] Viry Merino MD 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) (Primary Dx) 07/12/2025 Refill [facility] [address] [place] [address] Viry Merino MD Gastroesophageal reflux disease without esophagitis 06/27/2025 2:30 PM EDT Office Visit [facility] [address] [place] [address] Viry Merino MD Essential hypertension (Primary Dx); Tinea pedis of both feet; Transaminitis; Muscle spasm 06/27/2025 Travel 06/24/2025 Telephone [facility] [address] [place] [address] Viry Merino MD Chart Prep from Last [...] 12/20/2025 12/20/2024 Depression Screening 06/27/2026 06/27/2025, 06/27/20 SDOH Screening 06/27/2026 06/27/2025 Tobacco Screening 06/27/2026 [...] TO MICROSCOPIC Routine 09/16/2025 12:05 PM EST US RENAL DOPPLER Routine 09/15/2025 9:25 AM EST SAYRA SCREEN, IFA, W/REFL TITER AND PATTERN Routine 09/14/2025 10:00 AM EST MITOCHONDRIAL ANTIBODY WITH REFLEX TO TITER Routine 09/14/2025 10:00 AM EST ACTIN (SMOOTH MUSCLE) ANTIBODY (IGG) Routine 09/14/2025 10:00 AM EST ALPHA FETOPROTEIN, [...] Recently Relevant to Health Maintenance Results * Urinalysis with Reflex to Microscopic (09/16/2025 12:05 PM EST) Color Urine Yellow [facility] Appearance Urine Clear [facility] PH 6.5 5.0 - 9.0 [facility] Glucose Urine UA Negative Negative mg/dL [facility] Urine Blood Negative Negative [facility] Specific [place] - Urine 1.015 1.005 - 1.025 [facility] Urine Protein Negative Neg-Trace mg/dL [facility] Urine Ketones Negative Negative mg/dL [facility] Nitrite Urine Negative Negative [facility] Leukocyte Esterase Urine Negative Negative [facility] 09/16/2025 12:0 5 PM EST 09/16/2025 2:59 PM EST us Generic External Data Provider LAB URINE ORDERAB LES Final Result Performing Organization Address City/State/[facility] Co de Phone Number [facility] [address] [place] [phone] * US RENAL DOPPLER (09/15/2025 9:25 AM EST) Anatomical Region Laterality Modality Abdomen Ultrasound 09/15/2025 9:25 AM EST Narrative 09/15/2025 4:23 PM EST [place] [address] Ultrasound Report Signed Patient: Ja Rowe MR#: [id number] : 1960 Acct:[id number] Age/Sex: 65 / M ADM Date: 09/15/25 Loc: .US Attending Dr: Charles Amato MD Ordering Physician: Charles Amato MD Date of Service: 09/15/25 Procedure(s): US renal doppler Accession Number(s): [id number] cc: Viry Merino MD; Charles Amato MD [...] by: Vipin Eisenberg MD 09/15/2025 04:20 PM [facility] Dictated By: Vipin Eisenberg MD Signed By: <Electronically signed by Vipin Eisenberg MD in OV> 09/15/25 1620 DD/ 0925 TD/TT: 09/15/25 1013 Abap Developer: Procedure Note Donotuseinterpreter, Image - 09/15/2025 [place] [address] Ultrasound Report Signed Patient: Ja Rowe#: [id number] : 1960Acct:[id number] Age/Sex: 65 / MADM Date: 09/15/25 Loc: .US Attending Dr: Charles Amato MD Ordering Physician: Charles Amato MD Date of Service: 09/15/25 Procedure(s): US renal doppler Accession Number(s): [id number] cc: Viry Merino MD; Charles Amato MD [...] 09/15/25 1620 DD/ 0925 TD/TT: 09/15/25 1013 Abap Developer: SCAR us [facility] External Provider IMG US PROCEDURES Final Result * TSH with Reflex to Free T4 (09/14/2025 10:00 AM EST) TSH reflex Free T4 1.18 0.32 - 4.0 uIU/mL [facility] 09/14/2025 10:0 0 AM EST 09/14/2025 2:03 PM EST us Generic External Data Provider LAB BLOOD ORDERAB LES Final Result [facility] [address] [place] [phone] * (ABNORMAL) Actin (Smooth Muscle) Antibody (IgG) (09/14/2025 10:00 AM EST) Smooth Muscle Antibody 20(A) <20 U [facility] Comment:Reference Range: <20 U: Negative>or=20 U: [...] with AIH type 1.THIS TEST WAS PERFORMED AT:[employer] [place] [address]QJCSHJT W. MASON,MD,PHD 09/14/2025 10:0 0 AM EST 09/14/2025 2:03 PM EST us Generic External Data Provider LAB BLOOD ORDERAB LES Final Result Performing Organization Address City/[facility]/ZIP Co de Phone Number [facility] [address] [place] [phone] * Mitochondrial Antibody with Reflex to Titer (09/14/2025 10:00 AM EST) Mitochondrial Antibodies NEGATIVE NEGATIVE [facility] Comment:THIS TEST WAS PERFOR MED AT:[employer] [address] [id number] GUO MD Mitochondrial Ab Titer TNP [facility] 09/14/2025 10:0 0 AM EST 09/14/2025 2:03 PM EST us Generic External Data Provider LAB BLOOD ORDERAB LES Final Result Performing Organization Address City/[facility]/ZIP Co de Phone Number [facility] [address] [place] [phone] * HIV-1/2 Antigen and Antibodies, Fourth Generation, with Reflexes (09/14/2025 10:00 AM EST) HIV AB/AG Nonreactive Nonreactive [facility] Comment:HIV-1 p24 Ag and/or HIV-1/HIV-2 Ab not detected.A test result that is nonreactive does not exclude thepossibility of exposure to or infection with HIV-1 and/orHIV-2. Nonreactive results in this assay for individualswith prior exposure to HIV-1 and/or HIV-2 may be due toantigen and antibody levels that are below the limit ofdetection of this assay.The Intern HIV Ag/Ab Combo assay result andsupplemental assay results should be interpreted inconjunction with the patient's clinical presentation,history and other laboratory results. If the results areinconsistent with clinical evidence, additional testing issuggested to confirm the result. 09/14/2025 10:0 0 AM EST 09/14/2025 2:07 PM EST Generic External Data Provider LAB BLOOD ORDERAB LES Final Result Performing Organization Address [facility] Co de Phone Number [facility] [address] [place] [phone] * Ferritin (09/14/2025 10:00 AM EST) Ferritin 54 20 - 250 ng/mL [facility] 09/14/2025 10:0 0 AM EST 09/14/2025 2:03 PM EST Generic External Data Provider LAB BLOOD ORDERAB LES Final Result Performing Organization Address [facility] Co de Phone Number [facility] [address] [place] [phone] * Hepatic Function Panel (09/14/2025 10:00 AM EST) Bilirubin, Total 0.7 0.0 - 1.0 mg/dL [facility] Bilirubin, Direct 0.3 0.0 - 0.5 mg/dL [facility] Aspartate Amino Transferase 33 5 - 37 U/L [facility] Alanine Aminotransferase 37 0 - 40 U/L [facility] Total Protein 7.1 6.5 - 8.0 g/dL [facility] Albumin Level 4.2 3.5 - 5.0 g/dL [facility] Alkaline Phosphatase 80 39 - 117 U/L [facility] 09/14/2025 10:0 0 AM EST 09/14/2025 2:03 PM EST us Generic External Data Provider LAB BLOOD ORDERAB LES Final Result [facility] [address] [place] [phone] * (ABNORMAL) Lipid Panel, Standard (04/11/2025 8:09 AM EDT) Triglycerides 205(H) <150 mg/dL [facility] Comment:Desirable Triglyceri de: less than 150 mg/dLBorderline High Triglyceride 150-199 mg/dLHigh Triglyceride: 200-499 mg/dLVery High Triglyceride: greater than or equal to 5OO mg/dL Cholesterol 150 <200 mg/dL [facility] Comment:Desirable Cholestero l: less than 200 mg/dLBorderline High Cholesterol: 200-239 mg/dLHigh Cholesterol: greater than 239 mg/dL LDL Cholesterol Calculated 74 <100 mg/dL [facility] Comment:Desirable LDL: less than 100 mg/dLNear Optimal/Above Optimal LDL: 110- 129 mg/dLBorderline High LDL: 130-159 mg/dLHigh LDL: 160-189 mg/dLVery High LDL: greater than or equal to 190 mg/dL HDL Cholesterol 35(L) >40 mg/dL [facility] Comment:Desirable HDL: great er than 40 mg/dL Note: This HDL assay may give artificially low results in patients with liver disease. Blood Venous blood specimen / Unknown 04/11/2025 8:09 AM EDT 04/11/2025 3:28 PM EDT us Viry Merino MD LAB BLOOD ORDERABLES Final Result Performing Organization Address [facility] Co de Phone Number [facility] [address] [place] [phone] * Hepatitis A,B,C Profile (03/12/2024 8:34 AM EDT) Hepatitis A IgM Nonreactive Nonreactive [facility] Comment:IgM antibodies to SOTO V not detected; does not exclude earlyacute or recovered HAV infection. ~Hepatitis B Surface Antibody NONREACTIVE Nonreactive [facility] Comment:Nonreactive: < 8.00 mIU/mL Hepatitis B Core Antibody Nonreactive Nonreactive [facility] Hepatitis C Antibody Nonreactive Nonreactive [facility] Comment:Antibodies to HCV no t detected; does not exclude early acuteHCV infection. Hepatitis B Surface Ag Negative Negative [facility] Blood Venous blood specimen / Unknown 03/12/2024 8:34 AM EDT 03/12/2024 2:39 PM EDT us Viry Merino MD LAB BLOOD ORDERABLES Final Result Performing Organization Address [facility] de Phone Number [facility] [address] [place] [phone] from Last 3 Months or Most Recently Relevant to Health Maintenance Insurance [facility] MEDICARE ADVANTAGE HMO Care Teams Batch Maker Relationship Specialty Start Date End Date Viry Merino MD [address] [place] [phone] PCP - General Internal Medicine 09/29/18
--- OUTSIDE RECORDS SUMMARY | 2025-09-20 16:15 | XMS_ITS | Encounter Summary ---
Author Organization [employer] Address [address] [facility] 7 [place] [address] Care Team Providers Care Haulage Boss Name Role Phone Viry Merino MD Primary Care Provider [phone] Reason for Visit * Reason Comments Med Refill Encounter Details Date Type Department Care Team ([facility] st Contact Info) Description 03/25/2024 Refill [facility] [address] [place], [place] [phone] Viry Merino MD [address] [place] [address] Seasonal allergic rhinitis due to other allergic [...] documented as of this encounter Care Teams Haulage Boss Relationship Specialty Start Date End Date Viry Merino MD [address] [place] [address] PCP - General Internal Medicine 09/29/18 documented as of this encounter
--- OUTSIDE RECORDS SUMMARY | 2025-09-20 16:15 | XMS_ITS | Clinical Summary ---
Author Organization [facility] Address [address] [place] [address] Care Team Providers Care Placing Judge Name Role Phone Unknown Primary Care Provider [phone] Allergies No known active allergies Social History [...] patient's age to complete this topic Insurance [facility] [employer] MEDICAID OUT OF STATE [facility] Care Teams Placing Judge Relationship Specialty Start Date End Date Unknown Unknow Provider Address PCP - General 04/12/18
--- OUTSIDE RECORDS SUMMARY | 2025-09-20 16:16 | XMS_ITS | Encounter Summary ---
Author Organization [employer] Address [address] [facility] 7 [place] [address] Care Team Providers Care Cupola Melter Helper Name Role Phone Viry Merino MD Primary Care Provider [phone] Reason for Visit * Reason Comments Med Refill Encounter Details Date Type Department Care Team ([facility] st Contact Info) Description 07/04/2023 Refill [facility] [address] [place], [place] [phone] Viry Merino MD [address] [place] [address] Social History Tobacco Use Types Packs/Day Years [...] documented as of this encounter Care Teams Cupola Melter Helper Relationship Specialty Start Date End Date Viry Merino MD [address] [place] [phone] PCP - General Internal Medicine 09/29/18 documented as of this encounter
--- OUTSIDE RECORDS SUMMARY | 2025-09-20 16:16 | XMS_ITS | Encounter Summary ---
Author Organization [employer] Address [address] [facility] 7 [place] [address] Care Team Providers Care Whiting Machine Operator Name Role Phone Viry Merino MD Primary Care Provider [phone] Reason for Visit * Reason Onset Date Comments Results 03/08/2024 Encounter Details Date Type Department Care Team ([facility] st Contact Info) Description 03/08/2024 Telephone [facility] [address] [place] [address] Viry Merino MD [address] [place] [address] Results Social History Tobacco Use Types Packs/Day [...] ABD US yesterday and was informed at [facility] results would be sent to PCP office. Pt was informed that [facility] has been taking about 2-3 weeks for [...] results: labs Date when done: 03/04/24 Facility: [facility] documented in this encounter Plan of Treatment Not on file documented as of this encounter Visit Diagnoses Not on filedocumented in this encounter Additional Health Concerns Assessment Noted Time PHQ-9 Depression Total Score: 1 12/24/19 23 10:32 AM EDT documented as of this encounter Care Teams Whiting Machine Operator Relationship Specialty Start Date End Date Viry Merino MD [address] [place] [address] PCP - General Internal Medicine 09/29/18 documented as of this encounter
--- OUTSIDE RECORDS SUMMARY | 2025-09-20 16:16 | XMS_ITS | Encounter Summary ---
Author Organization [employer] Address 75 [facility] 7 [place] [address] Care Team Providers Care Garden Labourer Name Role Phone Viry Mreino MD Primary Care Provider [phone] Encounter Details Date Type Department Care Team ([facility] st Contact Info) Description 05/14/2024 Orders Only [facility] [address] [place], [place] [phone] Viry Merino MD [address] [place] [address] Social History Tobacco Use Types Packs/Day Years [...] documented as of this encounter Care Teams Garden Labourer Relationship Specialty Start Date End Date Viry Merino MD [address] [place] [address] PCP - General Internal Medicine 09/29/18 documented as of this encounter
--- OUTSIDE RECORDS SUMMARY | 2025-09-20 16:16 | XMS_ITS | Encounter Summary ---
Author Organization [employer] Address 75 [facility] 7 [place] [address] Care Team Providers Care Raymond Mill Operator Name Role Phone Viry Merino MD Primary Care Provider [phone] Reason for Visit * Reason Comments Med Refill Encounter Details Date Type Department Care Team ([facility] st Contact Info) Description 01/02/[address] [facility]S [address] [place], [place] [phone] Viry Merino MD [address] [place] [address] Social History Tobacco Use Types Packs/Day Years [...] documented as of this encounter Care Teams Raymond Mill Operator Relationship Specialty Start Date End Date Viry Merino MD [address] [place] [address] PCP - General Internal Medicine 09/29/18 documented as of this encounter
--- OUTSIDE RECORDS SUMMARY | 2025-09-20 16:16 | XMS_ITS | Encounter Summary ---
Author Organization [employer] Address 75 [facility] 7 [place] [address] Care Team Providers Care Electrolytic De Scaler Name Role Phone Viry Merino MD Primary Care Provider [phone] Reason for Visit * Reason Comments Med Refill Encounter Details Date Type Department Care Team ([facility] st Contact Info) Description 02/26/[address] [facility]S [address] [place], [place] [phone] Viry Merino MD [address] [place] [address] Social History Tobacco Use Types Packs/Day Years [...] documented as of this encounter Care Teams Electrolytic De Scaler Relationship Specialty Start Date End Date Viry Merino MD [address] [place] [address] PCP - General Internal Medicine 09/29/18 documented as of this encounter
--- OUTSIDE RECORDS SUMMARY | 2025-09-20 16:16 | XMS_ITS | Clinical Summary ---
Author Organization [employer] [facility] ity Address [address] [place] [address] Care Team Providers Care Electrolytic Etcher Name Role Phone Unavailable Primary Care Provider [...] 2010 Zoster Vaccines (1 of 2) 2010 Abdominal Aortic Aneurysm (A AA) Screen 09/01/2022 Cholesterol Screening (Lipid Panel) 09/01/2022 Hepatitis C [...]
--- OUTSIDE RECORDS SUMMARY | 2025-09-20 16:16 | XMS_ITS | Encounter Summary ---
Author Organization [employer] Address 75 [facility] 7 [place] [address] Care Team Providers Care Director Of Field Service Name Role Phone Viry Merino MD Primary Care Provider [phone] Reason for Visit * Reason Onset Date Comments Nurse Triage 03/08/2024 Encounter Details Date Type Department Care Team ([facility] st Contact Info) Description 03/08/2024 Telephone [facility] [address] [place] [address] Viry Merino MD [address] [place] [address] Nurse Triage Social History Tobacco Use Types [...] t he electric, gas, oil or water [employer] threatened to shut off services in your [...] 03/08/2024 4:44 PM EDT Triage call with [facility] [employer] [facility] [place] [id number] Pt reports rash that is wide spread. Pt reports redness with hive like spots, itchy, not bump or smooth, no blisters. Pt was seen in office 03/01/24 with dx of viral syndrome . Denies difficulty breathing, fever. Home care reviewed Apt with MICHELLE Marx 03/12/24 @ 315pm [facility]. Pt agrees with disposition and home [...] as of this encounter Care Teams Director Of Field Service Relationship Specialty Start Date End Date Viry Merino MD [address] [place] [address] PCP - General Internal Medicine 09/29/18 documented as of this encounter
--- OUTSIDE RECORDS SUMMARY | 2025-09-20 16:16 | XMS_ITS | Encounter Summary ---
Author Organization [employer] Address 75 [facility] 7t [place] [address] Care Team Providers Care Medical Records Administrator Name Role Phone Viry Merino MD Primary Care Provider [phone] Reason for Visit * Reason Comments Med Refill Encounter Details Date Type Department Care Team ([facility] st Contact Info) Description 08/30/2024 Refill [facility]S [address] [place], [place] [phone] Prabha Allison MD [address] [place] [address] Social History Tobacco Use Types Packs/Day Years [...] documented as of this encounter Care Teams Medical Records Administrator Relationship Specialty Start Date End Date Viry Merino MD [address] [place] [address] PCP - General Internal Medicine 09/29/18 documented as of this encounter
--- OUTSIDE RECORDS SUMMARY | 2025-09-20 16:16 | XMS_ITS | Encounter Summary ---
Author Organization [employer] Address [address] [facility] [address], [place] [address] Care Team Providers Care Box Printing Machine Operator Name Role Phone Viry Merino MD Primary Care Provider [phone]- [phone] Reason for Referral * Consultation (Routine) - Closed Specialty Diagnoses / Procedures Referred By Ed khoury Referred To Contact Nephrology Diagnoses Abnormal finding on diagnostic imaging of kidney Viry Merino MD [address] [place] [address] Phone: tel: fax: Charles Amato MD [address] [place] [address] Phone: tel: fax: Referral ID Status Reason Start Date Expiration Date V isits Requested Visits Authorized [id number] Closed Specialty Services Required 06/07/2025 06/07/2026 1 1 * Consultation (Routine) - Closed Specialty Diagnoses / Procedures Referred By Ed khoury Referred To Contact Gastroenterology Diagnoses Transaminitis Viry Merino MD [address] [place] [address] Phone: tel: fax: Olga Willoughby MD [address] [place] [address] Phone: tel: fax: Referral ID Status Reason Start Date Expiration Date V isits Requested Visits Authorized [id number] Closed Specialty Services Required 06/07/2025 06/07/2026 1 1 Encounter Details Date Type Department Care Team (Late st Contact Info) Description 06/07/2025 Orders Only [facility]EDS [address] [place] [address] Viry Merino MD [address] [place] [address] Transaminitis (Primary Dx); Abnormal finding on diagnostic [...] documented as of this encounter Care Teams Box Printing Machine Operator Relationship Specialty Start Date End Date Viry Merino MD [address] [place] [address] PCP - General Internal Medicine 09/29/18 documented as of this encounter
--- OUTSIDE RECORDS SUMMARY | 2025-09-20 16:16 | XMS_ITS | Encounter Summary ---
Author Organization [employer] Address 75 [facility] 7 [place] [address] Care Team Providers Care Song Writer Name Role Phone Viry Merino MD Primary Care Provider [phone] Reason for Visit * Reason Comments Med Refill Encounter Details Date Type Department Care Team ([facility] st Contact Info) Description 01/02/2024 Refill [facility] MED & PEDS [address] [place], [place] [phone] Viry Merino MD [address] [place] [address] Social History Tobacco Use Types Packs/Day Years [...] documented as of this encounter Care Teams Song Writer Relationship Specialty Start Date End Date Viry Merino MD [address] [place] [phone] PCP - General Internal Medicine 09/29/18 documented as of this encounter
== END 2025-09-20 16:04 | disposition home or self-care (01) ==
LOC: HO.HKAS 14:59
PROVIDERS: PCP Internal Medicine; Visit Provider Internal Medicine Nephrology
DX: I10 Essential (primary) hypertension (principal)
CPT/HCPCS: 99214

== ENCOUNTER → 2025-09-20 14:59 | Outpatient (BNVA) | payer MEDICARE, MEDICAID, SELFPAY | PROVIDERS: PCP Internal Medicine; Visit Provider Internal Medicine Nephrology | DX: I10 Essential (primary) hypertension (principal) | CPT/HCPCS: 99212 ==